=== PATIENT | female | born 1970 | race Caucasian/White ===

== ENCOUNTER 2016-10-08 08:30 | Inpatient (IN) | payer OTHER ==
[2016-10-15] MEDS ORDERED: Lactated Ringers 1,000 ML IV SCH (06:00)
[2016-10-15] MEDS ORDERED: ceFAZolin 2 GM in Sodium Chloride 0.9% 50 ML IV ONE (06:30)
[2016-10-15] MEDS ORDERED: Thrombin (Bovine) 5,000 Unit Kit ONE (06:51)
[2016-10-15] MEDS ORDERED: Bupivacaine 0.5%/EPINEPHrine 1:200,000 50 ML MDV ONE (06:52)
[2016-10-15] MEDS ORDERED: Povidone-Iodine 10% Soln 118.25 ML Bottle ONE (06:52)
[2016-10-15] MEDS ORDERED: Propofol 200 MG/20 ML SDV ONE ×2 (07:07→07:11)
[2016-10-15] MEDS ORDERED: Rocuronium 50 MG/5 ML Vial ONE (07:07)
[2016-10-15] MEDS ORDERED: Ondansetron 4 MG/2 ML SDV ONE (07:07)
[2016-10-15] MEDS ORDERED: Succinylcholine 200 MG/10 ML MDV ONE (07:07)
[2016-10-15] MEDS ORDERED: Neostigmine Methylsulfate 1 MG/ML 5 ML Syringe ONE (07:07)
[2016-10-15] MEDS ORDERED: Dexamethasone 4 MG/ML SDV ONE (07:07)
[2016-10-15] MEDS ORDERED: Glycopyrrolate 0.2 MG/ML 5 ML MDV ONE (07:07)
[2016-10-15] MEDS ORDERED: Ketamine 500 MG/5 ML MDV IV SCH (07:30)
[2016-10-15] MEDS ORDERED: Ondansetron 4 MG/2 ML SDV IVPUSH PRN (09:36)
[2016-10-15] MEDS ORDERED: Sodium Chloride 0.9% 10 ML Syringe FLUSH PRN (09:36)
[2016-10-15] MEDS ORDERED: Magnesium Hydroxide 400 MG/5 ML Susp 30 ML Cup PO PRN (09:36)
[2016-10-15] MEDS ORDERED: HYDROmorphone 1 MG/ML Syringe IVPUSH PRN (09:36)
[2016-10-15] MEDS ORDERED: Zolpidem 5 MG Tab PO PRN (09:36)
[2016-10-15] MEDS ORDERED: Sennosides 8.6 MG Tab PO PRN (09:36)
[2016-10-15] MEDS ORDERED: Aluminum Hydroxide/Magnesium Hydroxide/Simethicone Susp 30 ML Cup PO PRN (09:36)
[2016-10-15] MEDS ORDERED: Naloxone 0.4 MG/ML SDV IVPUSH PRN (09:36)
[2016-10-15] MEDS ORDERED: ceFAZolin 2 GM in Sodium Chloride 0.9% 50 ML IV SCH (09:45)
[2016-10-15] MEDS ORDERED: Labetalol 20 MG/4 ML Syringe IVPUSH ONE (10:47)
[2016-10-15] MEDS: Morphine 2 MG/ML Syringe IVPUSH PRN ×2 (11:39→18:44)
[2016-10-15] MEDS ORDERED: Gabapentin 300 MG Cap PO SCH (14:00)
[2016-10-15] MEDS: Hydrochlorothiazide 12.5 MG Cap PO SCH (14:02)
[2016-10-15] MEDS: Gabapentin 300 MG Cap PO SCH ×2 (14:03→21:00)
[2016-10-15] MEDS: Acetaminophen/oxyCODONE 325-5 MG Tab PO PRN ×2 (14:03→17:31)
[2016-10-15] MEDS: Lisinopril 10 MG Tab PO SCH (14:03)
[2016-10-15] MEDS: ceFAZolin 2 GM in Sodium Chloride 0.9% 50 ML IV SCH ×2 (14:04→21:01)
--- NOTE | 2016-10-15 14:53 | OR ---
DATE OF PROCEDURE: 10/15/2016 PREOPERATIVE DIAGNOSIS: Cervical stenosis, C4-5 and C5-6. POSTOPERATIVE DIAGNOSIS: Cervical stenosis, C4-5 and C5-6. PROCEDURES: 1. Anterior cervical diskectomy and fusion, C4-5 and C5-6. 2. Anterior segmental instrumentation, C4-5 and C5-6. 3. Insertion of interbody device, C4-5 and C5-6. 4. Use of operating microscope. 5. Use of Globus Signify allograft within the intervertebral space. DIRECTOR OF CUSTOMER ACQUISITION: Fabiola Correia NP ANESTHESIA: General endotracheal intubation. FLUID: Lactated Ringer solution. ESTIMATED BLOOD LOSS: 10 mL. COMPLICATIONS: None. SPECIMEN: None. DISCHARGE DISPOSITION: Stable to PACU. INDICATION FOR PROCEDURE: The patient was seen preoperatively in the clinic. She had failed nonoperative treatment. Preoperative imaging confirmed the above-mentioned diagnosis. Risks and benefits of the procedure were explained to the patient. Informed consent was obtained. DETAILS OF PROCEDURE: The patient was seen by myself and the anesthesia staff at the preoperative holding area, where the operative site was marked. She was brought to the operative suite by the Anesthesia staff where general anesthesia was administered. Neuromonitoring leads were placed. These were normal at baseline and normal throughout the case. The patient was placed onto a Dung table, which was flat. All extremities were found to be well padded. A shoulder roll was placed. We did confirm that we had good imaging prior to starting the procedure. The patient was then prepped and draped in a sterile manner. Time-out was called identifying the correct patient, correct procedure, the correct site, and antibiotics had been within appropriate period of time. The sterilely draped fluoroscopy unit was then used to identify the C5-C6 level. An oblique incision medial to the sternocleidomastoid was made and carried down to the platysma. The platysma was brought through using Bovie electrocautery. Cauterization during the case was controlled with Bovie electrocautery as well as bipolar electrocautery. I then used a Weitlaner retractor and then using Metzenbaum and pickups went to the medial border of the sternocleidomastoid fascia. I then bluntly dissected down to the prevertebral space, identified the C5-C6 level on fluoroscopy. We inserted 35 mm blades from our Shadow-Line retractor. I then used a deep 15 blade to incise the C5-6 anterior anulus and then removed the disk material using pituitaries, curettes, Kerrison, and a drill. I used an intervertebral valet attendant during the case for distraction as well to get down to the posterior longitudinal ligament. This was identified easily. I went through this by using #2 Kerrison to undermine the superior edge and the nerve hook while the dura was identified and a curette was placed at the left foramina as well as the nerve hook to make sure that there was no foraminal stenosis. I then placed a small amount of Floseal in the back of the disk space and then tamped out any remaining with a Ray-Inderjit. We then trailed up to a #6. I inserted a 6 mm, 12 x 14, 0-degree implant and then placed two 14 mm screws and confirmed good placement on fluoroscopy. I then performed the same procedure at the C4-5 level, except once we got down to the posterior lip. Before going through the posterior longitudinal ligament, I did bring in the operating microscope and under direct visualization used a Kerrison to take out the posterior lip of the superior vertebral body and then removed the posterior longitudinal ligament and any remaining disk material. I then again applied some Floseal and then trailed up to an 8 and inserted an 8 device with two 14 mm screws. We then using the operating microscope, used bipolar electrocautery unit to take care of any small bleeders and then irrigated with 2 L of Betadine-infused irrigation followed by drain placement of the lateral aspect of the wound, followed by three 2-0 Vicryl sutures through the platysma, followed by 3-0 Monocryl, followed by sterile dressing. The patient was then allowed to awaken from general anesthesia. The neuromonitoring leads were normal throughout the case. She was transferred to the hospital bed and taken to PACU in stable condition. Douglas Espinoza DO /[id number]
[2016-10-15] MEDS ORDERED: atorvaSTATin 10 MG Tab PO SCH ×2 (21:00)
[2016-10-16] MEDS: Acetaminophen/oxyCODONE 325-5 MG Tab PO PRN ×2 (01:38→09:48)
[2016-10-16] MEDS: Diazepam 5 MG Tab PO PRN ×2 (02:11→09:20)
[2016-10-16] MEDS: Morphine 2 MG/ML Syringe IVPUSH PRN ×2 (02:35→07:32)
[2016-10-16] MEDS: ceFAZolin 2 GM in Sodium Chloride 0.9% 50 ML IV SCH (05:19)
[2016-10-16] MEDS ORDERED: Pantoprazole 40 MG Tab.CR PO SCH (07:30)
[2016-10-16] MEDS ORDERED: Non-Formulary Medication 1 Each (Omeprazole [Omeprazole] 20 MG) PO SCH (09:00)
[2016-10-16] MEDS ORDERED: QUEtiapine 25 MG Tab PO SCH ×2 (09:00)
[2016-10-16] MEDS ORDERED: VIT K PO SCH (09:00)
[2016-10-16] MEDS ORDERED: [UNRECOGNIZED DRUG - OTHER] PO SCH (09:00)
[2016-10-16] MEDS ORDERED: [UNRECOGNIZED DRUG - OTHER] PO SCH (09:00)
[2016-10-16] MEDS ORDERED: LISINOPRIL PO SCH (09:00)
[2016-10-16] MEDS ORDERED: IRON FUM PO SCH (09:00)
[2016-10-16] MEDS ORDERED: HYDROCHLOROTHIAZIDE PO SCH (09:00)
[2016-10-16] MEDS ORDERED: Multivitamins with Iron/Calcium/Folic Acid/Minerals Tab PO SCH (09:00)
[2016-10-16] MEDS: Gabapentin 300 MG Cap PO SCH (09:14)
[2016-10-16] MEDS: Hydrochlorothiazide 12.5 MG Cap PO SCH (09:14)
[2016-10-16] MEDS: Lisinopril 10 MG Tab PO SCH (09:15)
[2016-10-16 09:24] VITALS: BP 128/71
--- NOTE | 2016-10-16 12:53 | PCM.DCSUM1 ---
Discharge Summary - Hospital Course Free Text/Narrative:: Jaida is doing very well today. She is status postop 1 day of a cervical fusion. She states that she is in minimal pain at this time. She has been emulating without any difficulties. Patient states at times she has little bit of swelling and trouble swallowing but very minimal at this time. - Discharge Data Discharge Date: 10/16/16 Discharge Disposition: Home, Self-Care 01 Condition: Good - Patient Summary/Data Consults: Consultations 10/15/16 09:36 OT Evaluation and Treatment [CONS] Routine Please Evaluate and Treat. OT Reason for Consult: Strengthening This query below is only for informational purposes and is not editable. PT Evaluation and Treatment [CONS] Routine Please Evaluate and Treat. PT Reason for Consult: Strengthening This query below is only for informational purposes and is not editable. - Patient Instructions Diet: Usual Diet as Tolerated Activity: Apply Ice, As Tolerated Driving: Do Not Drive Showering/Bathing: May Shower Wound/Incision Care: Keep Operative Site/Wound Site Clean and Dry, Change Dressing Daily - Discharge Plan Prescriptions/Med Rec: Acetaminophen/oxyCODONE [Percocet 325-5 MG] 1 tab PO Q6HR PRN #90 tablet PRN Reason: Pain Home Medications: Home Meds MV,Ca,Min/Iron Fum/FA/Vit K [Multi For Her Tablet] 1 tab PO DAILY 05/03/14 [ History] QUEtiapine [SEROquel] 25 mg PO DAILY 05/03/14 [History] Lisinopril/Hydrochlorothiazide [Zestoretic 10-12.5 mg Tablet] 1 each PO DAILY [History] atorvaSTATin [Lipitor] 10 mg PO BEDTIME 09/04/16 [History] Gabapentin [Neurontin] 300 mg PO TID 10/15/16 [History] Omeprazole 20 mg PO DAILY 10/15/16 [History] tiZANidine [Zanaflex] 4 mg PO Q8H 10/15/16 [History] Acetaminophen/oxyCODONE [Percocet 325-5 MG] 1 tab PO Q6HR PRN #90 tablet [Rx] Patient Handouts: Anterior Cervical Fusion, Care After Referrals: Fabiola Correia NP [Nurse Practitioner] - (3 week follow up) - Discharge Summary/Plan Comment DC Time >30 min.: Yes Discharge Summary/Plan Comment: At this time patient is doing very well she may be discharged home. We will pull the ANA LUISA drain out and see how she does with drainage. Patient will be sent home on Percocet. She'll follow up with me in 1 month. Patient is notify us if she has any issues in the meantime. I did instruct her to continue to drink lots of fluids to avoid any consultation. - Patient Data Vitals - Most Recent: Last Vital Signs Temp 36.4 C 10/16/16 07:00 Pulse 85 10/16/16 07:00 Resp 18 10/16/16 07:00 BP 128/71 10/16/16 09:15 Pulse Ox 93 L 10/16/16 07:38 Weight - Most Recent: 177 lb 8 oz I&O - Last 24 hours: Intake & Output 10/15/16 10/16/16 10/16/16 22:59 06:59 14:59 Intake Total 1681 Output Total 15 20 Balance 1666 -20 Lab Results - Last 24 hrs: Laboratory Results - last 24 hr 10/16/16 10/16/16 Range/Units 05:15 05:15 WBC 15.7 H (4.5-11.0) K/uL RBC 3.96 (3.30-5.50) M/uL Hgb 11.7 L (12.0-15.0) g/dL Hct 35.5 L (36.0-48.0) % MCV 90 (80-98) fL MCH 30 (27-31) pg MCHC 33 (32-36) % Plt Count 384 (150-400) K/uL Neut % (Auto) 75 H (36-66) % Lymph % (Auto) 14 L (24-44) % Cataño % (Auto) 10 H (2-6) % Eos % (Auto) 0 L (2-4) % Baso % (Auto) 0 (0-1) % Sodium 141 (140-148) mmol/L Potassium 4.0 (3.6-5.2) mmol/L Chloride 102 (100-108) mmol/L Carbon Dioxide 31 (21-32) mmol/L Anion Gap 8.4 (5.0-14.0) mmol/L BUN 10 (7-18) mg/dL Creatinine 0.8 (0.6-1.0) mg/dL Est Cr Clr Drug Dosing 83.13 mL/min Estimated GFR (MDRD) > 60 (>60) Glucose 115 H (74-106) mg/dL Calcium 8.5 (8.5-10.1) mg/dL Med Orders - Current: Current Medications Discontinued Medications Al Hydroxide/Mg Hydroxide (Mag-Al Plus) 30 ml PO Q4H PRN PRN Reason: Indigestion Atorvastatin Calcium (Lipitor) 10 mg PO BEDTIME CATHY Atorvastatin Calcium (Lipitor) 10 mg PO BEDTIME [facility] Last Admin: 10/15/16 21:00 Dose: 10 mg Bupivacaine HCl/Epinephrine Bitart (Marcaine 0.5%/Epinephrine 1:200,000) Confirm Administered Dose 50 ml .ROUTE .STK-MED ONE Stop: 10/15/16 06:53 Last Admin: 10/15/16 10:00 Dose: 5 ml Dexamethasone (Dexamethasone) Confirm Administered Dose 4 mg .ROUTE .STK-MED ONE Stop: 10/15/16 07:08 Diazepam (Valium.) 5 mg PO Q6H PRN PRN Reason: Spasms Last Admin: 10/16/16 09:20 Dose: 5 mg Diazepam (Valium) 2 mg IVPUSH ASDIRECTED PRN PRN Reason: AGIATATION Stop: 10/15/16 12:00 Last Admin: 10/15/16 10:18 Dose: 2 mg Fentanyl Citrate (Fentanyl) Confirm Administered Dose 500 mcg .ROUTE .STK-MED ONE Stop: 10/15/16 07:08 Fentanyl Citrate (Fentanyl) Confirm Administered Dose 500 mcg .ROUTE .STK-MED ONE Stop: 10/15/16 07:59 Gabapentin (Neurontin) 300 mg PO TID [facility] Gabapentin (Neurontin) 300 mg PO TID [facility] Last Admin: 10/16/16 09:14 Dose: 300 mg Glycopyrrolate (Robinul) Confirm Administered Dose 1 mg .ROUTE .STK-MED ONE Stop: 10/15/16 07:08 Hydrochlorothiazide (Hydrochlorothiazide) 12.5 mg PO DAILY [facility] Last Admin: 10/16/16 09:14 Dose: 12.5 mg Hydromorphone HCl (Dilaudid) 1 mg IVPUSH Q2H PRN PRN Reason: Pain Cefazolin Sodium 2 gm/ Sodium (Chloride) 50 mls @ 100 mls/hr IV ONETIME ONE Stop: 10/15/16 06:59 Last Admin: 10/15/16 07:23 Dose: 100 mls/hr Lactated Ringer's (Ringers, Lactated) 1,000 mls @ 0 mls/hr IV ASDIRECTED [facility] PRN Reason: KVO Last Admin: 10/15/16 06:12 Dose: 100 mls/hr Ketamine HCl 100 mg/ Sodium (Chloride) 100 mls @ 17 mls/hr IV ASDIRECTED [facility] Cefazolin Sodium 2 gm/ Sodium (Chloride) 50 mls @ 100 mls/hr IV Q8H [facility] Stop: 10/16/16 02:14 Last Admin: 10/15/16 17:18 Dose: Not Given Cefazolin Sodium 2 gm/ Sodium (Chloride) 50 mls @ 100 mls/hr IV Q8H [facility] Stop: 10/16/16 06:29 Last Admin: 10/16/16 05:19 Dose: 100 mls/hr Ketamine HCl (Ketalar) 28 mg IV ASDIRECTED [facility] Labetalol HCl (Normodyne) 5 mg IVPUSH ONETIME ONE PRN Reason: Protocol Stop: 10/15/16 10:48 Last Admin: 10/15/16 10:54 Dose: 5 mg Lisinopril (Prinivil) 10 mg PO DAILY [facility] Last Admin: 10/16/16 09:15 Dose: 10 mg Magnesium Hydroxide (Milk Of Magnesia) 30 ml PO BID PRN PRN Reason: Constipation Last Admin: 10/16/16 09:47 Dose: 30 ml Morphine Sulfate (Morphine) 2 mg IVPUSH Q2H PRN PRN Reason: Pain (severe 7-10) Last Admin: 10/16/16 07:32 Dose: 2 mg Multivitamins/Minerals (Thera M Plus) 1 tab PO DAILY [facility] Last Admin: 10/16/16 09:20 Dose: 1 tab Naloxone HCl (Narcan) 0.2 mg IVPUSH ASDIRECTED PRN PRN Reason: Oversedation Stop: 10/15/16 16:00 Neostigmine Methylsulfate (Neostigmine) Confirm Administered Dose 5 mg .ROUTE .STK-MED ONE Stop: 10/15/16 07:08 Non-Formulary Medication (Lisinopril/Hydrochlorothiazide [Zestoretic 10-12.5 Mg Tablet]) 1 each PO DAILY [facility] Non-Formulary Medication (Mv,Ca,Min/Iron Fum/Fa/Vit K [Multi For Her Tablet]) 1 tab PO DAILY [facility] Non-Formulary Medication (Omeprazole [Omeprazole]) 20 mg PO DAILY [facility] Ondansetron HCl (Zofran) Confirm Administered Dose 4 mg .ROUTE .STK-MED ONE Stop: 10/15/16 07:08 Ondansetron HCl (Zofran) 8 mg IVPUSH Q4H PRN PRN Reason: Nausea/Vomiting Oxycodone/Acetaminophen (Percocet 325-5 Mg) 2 tab PO Q4H PRN PRN Reason: Pain Last Admin: 10/16/16 09:48 Dose: 2 tab Pantoprazole Sodium (Protonix) 40 mg PO DAILY@0730 [facility] Last Admin: 10/16/16 07:47 Dose: 40 mg Povidone Iodine (Betadine 10% Soln) Confirm Administered Dose 1 ml .ROUTE .STK- MED ONE Stop: 10/15/16 06:53 Last Admin: 10/15/16 08:09 Dose: 40 ml Propofol (Diprivan 20 Ml) Confirm Administered Dose 200 mg .ROUTE .STK-MED ONE Stop: 10/15/16 07:08 Propofol (Diprivan 20 Ml) Confirm Administered Dose 600 mg .ROUTE .STK-MED ONE Stop: 10/15/16 07:12 Quetiapine Fumarate (Seroquel) 25 mg PO DAILY [facility] Quetiapine Fumarate (Seroquel) 25 mg PO DAILY [facility] Last Admin: 10/16/16 09:20 Dose: 25 mg Rocuronium Roscoe (Zemuron) Confirm Administered Dose 50 mg .ROUTE .STK-MED ONE Stop: 10/15/16 07:08 Senna (Senna) 8.6 mg PO BID PRN PRN Reason: Constipation Sodium Chloride (Saline Flush) 10 ml FLUSH ASDIRECTED PRN PRN Reason: Keep Vein Open Succinylcholine Chloride (Quelicin) Confirm Administered Dose 200 mg .ROUTE .STK -MED ONE Stop: 10/15/16 07:08 Thrombin (Thrombin-Jmi) Confirm Administered Dose 15,000 unit .ROUTE .STK-MED ONE Stop: 10/15/16 06:52 Last Admin: 10/15/16 08:09 Dose: 5,000 unit Zolpidem Tartrate (Ambien) 5 mg PO BEDTIME PRN PRN Reason: Sleep Last Admin: 10/15/16 21:00 Dose: 5 mg - Exam General: Reports: Alert, Moderate Distress Neck: Reports: Supple, Trachea Midline, No JVD Extremities: Normal Inspection, Normal Range of Motion, Non-Tender, No Pedal Edema, Normal Capillary Refill Skin: Reports: Warm, Dry, Intact Wound/Incisions: Reports: Healing Well, Dressing Dry and Intact, No Drainage Neurological: Reports: No New Focal Deficit, Normal Gait, Strength Equal Bilateral, Reflexes Equal Bilateral Psy/Mental Status: Reports: Alert *Q Meaningful Use (DIS) - VTE *Q VTE Criteria *Q: - Stroke *Q Stroke Criteria *Q: - AMI *Q AMI Criteria *Q:
== END 2016-10-16 11:38 | disposition home or self-care (01) | DRG 473 ==
LOC: JP.MS 10-15 05:20 → JP.SDS 10-15 05:20 → EDSTATUS 10-15 07:30 → JP.MS 10-15 11:15
PROVIDERS: ADMIT Orthopaedic Surgery; ATTEND Orthopaedic Surgery
PROC: 0RB30ZZ Excision of Cervical Vertebral Disc, Open Approach (ICD-10-PCS; principal; 2016-10-15)
PROC: 0RG10A0 Fusion of Cervical Vertebral Joint with Interbody Fusion Device, Anterior Approach, Anterior Column, Open Approach (ICD-10-PCS; principal; 2016-10-15)
DX: M48.02 Spinal stenosis, cervical region (principal); M54.12 Radiculopathy, cervical region
CPT/HCPCS: 36415; 76001; 80048; 85025; 86850; 86900; 86901; 94762; 97161-GP; 97165-GO; 97530-GP; 97535-GP; A9270-GY; C1713; J0330; J0690; J1100; J2270; J2405; J2704; J2710; J3010; J3360; J7030; J7050; J7120

== ENCOUNTER 2016-10-28 08:29 | Inpatient (IN) | payer OTHER ==
[2016-10-28] MEDS ORDERED: HYDROmorphone 0.5 MG/0.5 ML Syringe IVPUSH ONE (09:03)
[2016-10-28] MEDS ORDERED: Ondansetron 4 MG/2 ML SDV IVPUSH ONE (09:03)
[2016-10-28] MEDS ORDERED: Morphine 2 MG/ML Syringe IVPUSH ONE ×3 (09:10→11:40)
--- NOTE | 2016-10-28 09:12 | EDM.PDOC ---
ED HPI GENERAL MEDICAL PROBLEM - General Chief Complaint: Abdominal Pain Stated Complaint: SEVERE ABD PAIN Time Seen by Provider: 10/28/16 09:11 Source of Information: Reports: Patient History Limitations: Reports: No Limitations - History of Present Illness INITIAL COMMENTS - FREE TEXT/NARRATIVE: pt arrived with pain in mid abdoman --suprapupicly. She had passed 2 bloody stools earlier. She was very uncomfortable on arrival. Onset: Other ( bloody stools started last nite. ) Duration: Hour(s):, Getting Worse Location: Reports: Abdomen Associated Symptoms: Reports: Loss of Appetite, Other ( bloody stools. ) Abdomen Pain Score (Numeric/FACES): 10 - Related Data Allergies Allergy/AdvReac Type Severity Reaction Status Date / Time ciprofloxacin Allergy Intermediate unknown Verified 10/28/16 08:41 hydromorphone [Hydromorphone] Allergy Intermediate Rash Verified 10/28/16 08:41 ketorolac Allergy abd pain Verified 10/28/16 08:41 Home Meds: Home Meds MV,Ca,Min/Iron Fum/FA/Vit K [Multi For Her Tablet] 1 tab PO DAILY 05/03/14 [ History] QUEtiapine [SEROquel] 25 mg PO DAILY 05/03/14 [History] Lisinopril/Hydrochlorothiazide [Zestoretic 10-12.5 mg Tablet] 1 each PO DAILY [History] atorvaSTATin [Lipitor] 10 mg PO BEDTIME 09/04/16 [History] Omeprazole 20 mg PO DAILY 10/15/16 [History] tiZANidine [Zanaflex] 4 mg PO Q8H 10/15/16 [History] Past Medical History Cardiovascular History: Reports: Hypertension 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 SANDER History: Reports: 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, Musculoskeletal History: Reports: Other (See Below) Other Musculoskeletal History: L arm pain - Infectious Disease History Infectious Disease History: Reports: Chicken Pox, Shingles - Past Surgical History HEENT Surgical History: Reports: Oral Surgery Other HEENT Surgeries/Procedures: wisdom teeth GI Surgical History: Reports: Appendectomy Female Surgical History: Reports: Hysterectomy Neurological Surgical History: Reports: C-Spine Social & Family History - Tobacco Use Smoking Status *Q: Former Smoker Years of Tobacco use: 36 Used Tobacco, but Quit: Yes Month Tobacco Last Used: 2014 Second Hand Smoke Exposure: No - Caffeine Use Caffeine Use: Reports: Coffee, Soda - Alcohol Use Days Per Week of Alcohol Use: 0 - Recreational Drug Use Recreational Drug Use: No ED ROS GENERAL - Review of Systems Review Of Systems: See Below Constitutional: Reports: Decreased Appetite HEENT: Reports: No Symptoms Respiratory: Reports: No Symptoms Cardiovascular: Reports: No Symptoms Endocrine: Reports: No Symptoms GI/Abdominal: Reports: Abdominal Pain, Bloody Stool, Other (pt passed 2 bloody stools. ) : Reports: No Symptoms Musculoskeletal: Reports: No Symptoms Neurological: Reports: No Symptoms Psychiatric: Reports: Anxiety, Other (pt is very uncomfortable. ) ED EXAM, GI/ABD - Physical Exam Exam: See Below Text/Narrative:: pt arrived with severe pain in the midsupra pupic area. She has a history of 2 bloody stools. Exam Limited By: No Limitations General Appearance: Alert, Moderate Distress Ears: Normal TMs Nose: Normal Inspection Throat/Mouth: Normal Inspection Head: Atraumatic Neck: Normal Inspection Respiratory/Chest: No Respiratory Distress Cardiovascular: Regular Rate, Rhythm GI/Abdominal Exam: Other (pt has considerable tenderness in the mid suprapubic area. She is guarded and is requiring a fair amount of pain meds to control the pain. ) (Female) Exam: Normal External Exam Rectal (Female) Exam: Deferred Back Exam: Normal Inspection Extremities: Normal Inspection Neurological: Alert, Oriented, Normal Cognition Course - Vital Signs Last Recorded V/S: Last Vital Signs Temp 36.7 C 10/29/16 07:46 Pulse 89 10/29/16 07:46 Resp 16 10/29/16 07:46 BP 101/70 10/29/16 07:46 Pulse Ox 97 10/29/16 07:46 - Orders/Labs/Meds Orders: Active Orders 24 hr Category Date Time Status Ampicillin/Sulbactam Na [Unasyn] 1.5 gm Med 10/28/16 18:00 Active Sodium Chloride 0.9% [Normal Saline] 50 ml IV Q6H Medication Orders Acetaminophen (Tylenol) 650 mg PO Q4H PRN PRN Reason: Pain (Mild 1-3)/fever Ampicillin Sodium/Sulbactam (Sodium 1.5 gm/ Sodium Chloride) 50 mls @ 100 mls/ hr IV Q6H CATHY Last Admin: 10/29/16 05:26 Dose: 100 mls/hr Admin: 10/28/16 23:37 Dose: 100 mls/hr Admin: 10/28/16 18:03 Dose: 100 mls/hr Sodium Chloride (Normal Saline) 1,000 mls @ 125 mls/hr IV ASDIRECTED CATHY Last Admin: 10/29/16 03:08 Dose: 125 mls/hr Infusion: 10/29/16 02:09 Dose: 125 mls/hr Admin: 10/28/16 18:09 Dose: 125 mls/hr Morphine Sulfate (Morphine Evs Manager 150 Mg In 30 Ml) 0 mg IV ASDIRECTED PRN; Protocol PRN Reason: Pain Last Admin: 10/28/16 13:52 Dose: 2 mg Naloxone HCl (Narcan) 0.4 mg IVPUSH Q2M PRN PRN Reason: Respiratory Distress Ondansetron HCl (Zofran) 4 mg IV Q4H PRN PRN Reason: Nausea/Vomiting Last Admin: 10/29/16 05:26 Dose: 4 mg Pantoprazole Sodium (Protonix Iv) 40 mg IVPUSH Q24H CATHY Last Admin: 10/28/16 14:23 Dose: 40 mg Quetiapine Fumarate (Seroquel) 25 mg PO BEDTIME CATHY Last Admin: 10/28/16 20:45 Dose: 25 mg Sodium Chloride (Saline Flush) 10 ml FLUSH ASDIRECTED PRN PRN Reason: Keep Vein Open Labs: Laboratory Tests 10/28/16 10/28/16 10/28/16 Range/Units 09:10 09:10 09:12 WBC 19.2 H (4.5-11.0) K/uL RBC 4.18 (3.30-5.50) M/uL Hgb 12.5 (12.0-15.0) g/dL Hct 35.6 L (36.0-48.0) % MCV 85 (80-98) fL MCH 30 (27-31) pg MCHC 35 (32-36) % Plt Count 499 H (150-400) K/uL Neut % (Auto) 90 H (36-66) % Lymph % (Auto) 5 L (24-44) % [place] % (Auto) 5 (2-6) % Eos % (Auto) 0 L (2-4) % Baso % (Auto) 0 (0-1) % Sodium (140-148) mmol/L Potassium (3.6-5.2) mmol/L Chloride (100-108) mmol/L Carbon Dioxide (21-32) mmol/L Anion Gap (5.0-14.0) mmol/L BUN (7-18) mg/dL Creatinine (0.6-1.0) mg/dL Est Cr Clr Drug Dosing mL/min Estimated GFR (MDRD) (>60) Glucose (74-106) mg/dL Lactic Acid 1.7 (0.4-2.0) mmol/L Calcium (8.5-10.1) mg/dL Total Bilirubin (0.2-1.0) mg/dL AST (15-37) U/L ALT (12-78) U/L Alkaline Phosphatase (46-116) U/L Total Protein (6.4-8.2) g/dL Albumin (3.4-5.0) g/dL Globulin (2.3-3.5) g/dL Albumin/Globulin Ratio (1.2-2.2) Lipase 170 (73-393) U/L Urine Color Urine Appearance Urine pH (4.5-8.0) Ur Specific [place] (1.008-1.030) Urine Protein (NEGATIVE) mg/dL Urine Glucose (UA) (NEGATIVE) mg/dL Urine Ketones (NEGATIVE) mg/dL Urine Occult Blood (NEGATIVE) Urine Nitrite (NEGATIVE) Urine Bilirubin (NEGATIVE) Urine Urobilinogen (NORMAL) mg/dL Ur Leukocyte Esterase (NEGATIVE) Urine RBC (0-5) Urine WBC (0-5) Ur Epithelial Cells Amorphous Sediment Urine Bacteria Urine Mucus 10/28/16 10/28/16 Range/Units 09:12 10:40 WBC (4.5-11.0) K/uL RBC (3.30-5.50) M/uL Hgb (12.0-15.0) g/dL Hct (36.0-48.0) % MCV (80-98) fL MCH (27-31) pg MCHC (32-36) % Plt Count (150-400) K/uL Neut % (Auto) (36-66) % Lymph % (Auto) (24-44) % [place] % (Auto) (2-6) % Eos % (Auto) (2-4) % Baso % (Auto) (0-1) % Sodium 132 L (140-148) mmol/L Potassium 3.8 (3.6-5.2) mmol/L Chloride 94 L (100-108) mmol/L Carbon Dioxide 27 (21-32) mmol/L Anion Gap 14.8 H (5.0-14.0) mmol/L BUN 12 (7-18) mg/dL Creatinine 0.7 (0.6-1.0) mg/dL Est Cr Clr Drug Dosing 95.01 mL/min Estimated GFR (MDRD) > 60 (>60) Glucose 138 H (74-106) mg/dL Lactic Acid (0.4-2.0) mmol/L Calcium 9.3 (8.5-10.1) mg/dL Total Bilirubin 0.4 (0.2-1.0) mg/dL AST 29 (15-37) U/L ALT 74 D (12-78) U/L Alkaline Phosphatase 343 H D (46-116) U/L Total Protein 7.9 (6.4-8.2) g/dL Albumin 3.8 (3.4-5.0) g/dL Globulin 4.1 H (2.3-3.5) g/dL Albumin/Globulin Ratio 0.9 L (1.2-2.2) Lipase (73-393) U/L Urine Color Yellow Urine Appearance Clear Urine pH 8.0 (4.5-8.0) Ur Specific [place] 1.010 (1.008-1.030) Urine Protein Negative (NEGATIVE) mg/dL Urine Glucose (UA) Normal (NEGATIVE) mg/dL Urine Ketones Negative (NEGATIVE) mg/dL Urine Occult Blood Moderate (NEGATIVE) Urine Nitrite Negative (NEGATIVE) Urine Bilirubin Negative (NEGATIVE) Urine Urobilinogen Normal (NORMAL) mg/dL Ur Leukocyte Esterase Negative (NEGATIVE) Urine RBC 0-5 (0-5) Urine WBC 0-5 (0-5) Ur Epithelial Cells Rare Amorphous Sediment Not seen Urine Bacteria Not seen Urine Mucus Rare Meds: Medications Generic Name Dose Route Start Last Admin Trade Name Freq PRN Reason Stop Dose Admin Acetaminophen 650 mg 10/28/16 13:30 Tylenol PO Q4H PRN Pain (Mild 1-3)/fever Ampicillin Sodium/Sulbactam 50 mls @ 100 mls/hr 10/28/16 18:00 10/29/16 05:26 Sodium 1.5 gm/ Sodium Chloride IV 100 mls/hr Q6H CAHTY Administration Sodium Chloride 1,000 mls @ 125 mls/hr 10/28/16 17:45 10/29/16 03:08 Normal Saline IV 125 mls/hr ASDIRECTED CATHY Administration Morphine Sulfate 0 mg 10/28/16 13:30 10/28/16 13:52 Morphine Evs Manager 150 Mg In 30 Ml IV 2 mg ASDIRECTED PRN Administration Pain Protocol Naloxone HCl 0.4 mg 10/28/16 13:30 Narcan IVPUSH Q2M PRN Respiratory Distress Ondansetron HCl 4 mg 10/28/16 13:30 10/29/16 05:26 Zofran IV 4 mg Q4H PRN Administration Nausea/Vomiting Pantoprazole Sodium 40 mg 10/28/16 14:00 10/28/16 14:23 Protonix Iv IVPUSH 40 mg Q24H CATHY Administration Quetiapine Fumarate 25 mg 10/28/16 21:00 10/28/16 20:45 Seroquel PO 25 mg BEDTIME CATHY Administration Sodium Chloride 10 ml 10/28/16 13:30 Saline Flush FLUSH ASDIRECTED PRN Keep Vein Open Discontinued Medications Generic Name Dose Route Start Last Admin Trade Name Freq PRN Reason Stop Dose Admin Acetaminophen 1,000 mg 10/29/16 05:51 10/29/16 06:14 Tylenol Extra Strength PO 10/29/16 05:52 1,000 mg ONETIME ONE Administration Hydromorphone HCl 0.5 mg 10/28/16 09:03 10/28/16 09:15 Dilaudid IVPUSH 10/28/16 09:04 Not Given ONETIME ONE Sodium Chloride 1,000 mls @ 999 mls/hr 10/28/16 09:15 10/28/16 09:11 Normal Saline IV 999 mls/hr ASDIRECTED CATHY Administration Sodium Chloride 100 mls @ 3 mls/sec 10/28/16 10:00 10/28/16 10:13 Normal Saline IV 3 mls/sec ASDIRECTED CATHY Administration Sodium Chloride 1,000 mls @ 500 mls/hr 10/28/16 10:30 10/28/16 10:31 Normal Saline IV 500 mls/hr ASDIRECTED CATHY Administration Ampicillin Sodium/Sulbactam 50 mls @ 100 mls/hr 10/28/16 12:00 10/28/16 11:39 Sodium 1.5 gm/ Sodium Chloride IV 10/28/16 12:29 100 mls/hr ONETIME ONE Administration Sodium Chloride 500 mls @ 250 mls/hr 10/28/16 13:30 10/28/16 17:45 Normal Saline IV 10/28/16 19:31 250 mls/hr .BOLUS CATHY Administration Iopamidol 100 ml 10/28/16 10:00 10/28/16 10:12 Isovue-300 (61%) IV 100 ml . DIRECTED CATHY Administration Morphine Sulfate 2 mg 10/28/16 09:10 10/28/16 09:20 Morphine IVPUSH 10/28/16 09:11 2 mg ONETIME ONE Administration Morphine Sulfate 2 mg 10/28/16 10:26 10/28/16 10:31 Morphine IVPUSH 10/28/16 10:27 2 mg ONETIME ONE Administration Morphine Sulfate 2 mg 10/28/16 11:40 10/28/16 11:41 Morphine IVPUSH 10/28/16 11:41 2 mg ONETIME ONE Administration Ondansetron HCl 4 mg 10/28/16 09:03 10/28/16 09:13 Zofran IVPUSH 10/28/16 09:04 4 mg ONETIME ONE Administration - Re-Assessments/Exams Free Text/Narrative Re-Assessment/Exam: 10/29/16 07:53 pt had a cat scan which showed a mass like area. in the large bowel either inflamitory or infectious. Departure - Departure Time of Disposition: 07:50 Disposition: Admitted As Inpatient 66 Clinical Impression: Inflammation of large intestine, Rectal bleeding - Discharge Information
[2016-10-28] MEDS ORDERED: Sodium Chloride 0.9% 1,000 ML IV SCH ×2 (09:15→10:30)
[2016-10-28] MEDS ORDERED: Sodium Chloride 0.9% 100 ML IV SCH (10:00)
[2016-10-28] MEDS ORDERED: Iopamidol 612 MG/ML 100 ML Bottle IV SCH (10:00)
--- NOTE | 2016-10-28 10:30 | CT ---
Abdomen Pelvis w Cont Total DLP 735 mGycm. INDICATION: mid lower abdominal pain COMPARISON: None. FINDINGS: Circumferential wall thickening, mucosal hyperenhancement, and mild surrounding inflammator y change involving the descending and proximal sigmoid colon, most marked at the descending colon/sig moid colon junction. No focal fluid collection or abscess. Appendectomy and hysterectomy. Small fat-c ontaining periumbilical hernia. Small splenule. Minimal atherosclerotic calcification. Exam otherwise negative. IMPRESSION: Descending and sigmoid colitis. No focal fluid collection or abscess. Differential consid erations include infectious, inflammatory, and less likely ischemic, as the mesenteric arteries appea r widely patent.
[2016-10-28] MEDS ORDERED: Ampicillin/Sulbactam Na 1.5 GM in Sodium Chloride 0.9% 50 ML IV ONE (12:00)
[2016-10-28] MEDS ORDERED: Morphine PF 150 MG/30 ML PCA Syringe IV PRN (13:30)
[2016-10-28] MEDS ORDERED: Naloxone 0.4 MG/ML SDV IVPUSH PRN (13:30)
[2016-10-28] MEDS ORDERED: Acetaminophen 325 MG Tab PO PRN (13:30)
[2016-10-28] MEDS ORDERED: Sodium Chloride 0.9% 10 ML Syringe FLUSH PRN (13:30)
[2016-10-28] MEDS ORDERED: Ondansetron 4 MG/2 ML SDV IV PRN (13:30)
[2016-10-28] MEDS: Sodium Chloride 0.9% 500 ML IV SCH ×2 (13:45→17:45)
[2016-10-28] MEDS: Pantoprazole 40 MG Vial IVPUSH SCH (14:23)
--- NOTE | 2016-10-28 14:57 | PCM.HP ---
H&P History of Present Illness - General Date of Service: 10/28/16 Admit Problem/Dx: Admission Diagnosis/Problem Admission Diagnosis/Problem Colitis Source of Information: Patient, Provider, RN Notes Reviewed History Limitations: Reports: No Limitations - History of Present Illness Initial Comments - Free Text/Narative: Ms. Lofton is a 45-year-old woman who was admitted through the emergency department because of severe left lower quadrant abdominal pain associated with bloody diarrhea. She'll not felt well over the past 2 days with very poor appetite and feeling chilled. Early this morning developed bloody stools and had several bloody bowel movements during the night. She came into the emergency department this morning for evaluation. Blood pressure was stable but white blood cell count was elevated and her heart rate was borderline elevated. CT scan of the abdomen and pelvis shows evidence of inflammation in the descending and sigmoid colon. She's had no further evidence of lower GI bleeding since she's been in the emergency department. Lactic acid level is within normal range. Abdomen Pain Score (Numeric/FACES): 9 - Related Data Allergies/Adverse Reactions: Allergies Allergy/AdvReac Type Severity Reaction Status Date / Time ciprofloxacin Allergy Intermediate unknown Verified 10/28/16 08:41 hydromorphone [Hydromorphone] Allergy Intermediate Rash Verified 10/28/16 08:41 ketorolac Allergy abd pain Verified 10/28/16 08:41 Home Medications: Home Meds MV,Ca,Min/Iron Fum/FA/Vit K [Multi For Her Tablet] 1 tab PO DAILY 05/03/14 [ History] QUEtiapine [SEROquel] 25 mg PO DAILY 05/03/14 [History] Lisinopril/Hydrochlorothiazide [Zestoretic 10-12.5 mg Tablet] 1 each PO DAILY [History] atorvaSTATin [Lipitor] 10 mg PO BEDTIME 09/04/16 [History] Omeprazole 20 mg PO DAILY 10/15/16 [History] tiZANidine [Zanaflex] 4 mg PO Q8H 10/15/16 [History] Past Medical History Cardiovascular History: Reports: Hypertension Gastrointestinal History: Reports: Other (See Below) Other Gastrointestinal History: colitis 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, Musculoskeletal History: Reports: Other (See Below) Other Musculoskeletal History: L arm pain - Infectious Disease History Infectious Disease History: Reports: Chicken Pox, Shingles - Past Surgical History HEENT Surgical History: Reports: Oral Surgery Other HEENT Surgeries/Procedures: wisdom teeth GI Surgical History: Reports: Appendectomy Female Surgical History: Reports: Hysterectomy Neurological Surgical History: Reports: C-Spine Social & Family History - Tobacco Use Smoking Status *Q: Former Smoker Years of Tobacco use: 36 Used Tobacco, but Quit: Yes Month Tobacco Last Used: 2014 Second Hand Smoke Exposure: No - Caffeine Use Caffeine Use: Reports: Coffee, Soda - Alcohol Use Days Per Week of Alcohol Use: 0 - Recreational Drug Use Recreational Drug Use: No H&P Review of Systems - Review of Systems: Review Of Systems: See Below General: Reports: Chills, Weakness, Decreased Appetite. Denies: Fever HEENT: Reports: No Symptoms Pulmonary: Reports: No Symptoms Cardiovascular: Reports: No Symptoms Gastrointestinal: Reports: Abdominal Pain, Bloody Stool, Diarrhea, Decreased Appetite, Nausea, Vomiting Genitourinary: Reports: No Symptoms Musculoskeletal: Reports: No Symptoms Skin: Reports: No Symptoms Psychiatric: Reports: No Symptoms Neurological: Reports: No Symptoms Hematologic/Lymphatic: Reports: No Symptoms Immunologic: Reports: No Symptoms Exam - Exam Exam: See Below - Vital Signs Vital Signs: Last Vital Signs Temp 99.0 F 10/28/16 13:37 Pulse 94 10/28/16 13:37 Resp 23 H 10/28/16 13:37 BP 130/88 10/28/16 13:37 Pulse Ox 97 10/28/16 14:00 Weight: 165 lb - Exam Quality Assessment: DVT Prophylaxis General: Alert, Oriented, Cooperative, Moderate Distress HEENT: Conjunctiva Clear, Hearing Intact, Normal Nasal Septum, Posterior Pharynx Clear, Pupils Equal Neck: Supple, Trachea Midline, +2 Carotid Pulse wo Bruit Lungs: Clear to Auscultation, Normal Respiratory Effort Cardiovascular: Regular Rhythm, Normal S1, Normal S2, Tachycardia. No: Systolic Murmur, Diastolic Murmur GI/Abdominal Exam: Normal Bowel Sounds, Soft, No Organomegaly, Tender. No: Distended, Guarding, Rigid, Rebound Back Exam: Normal Inspection, Full Range of Motion Extremities: Normal Inspection, Non-Tender, No Pedal Edema Skin: Warm, Dry, Intact Neurological: Cranial Nerves Intact, Strength Equal Bilateral, Normal Speech, Normal Tone, Sensation Intact. No: Focal Deficit Neuro Extensive - Mental Status: Alert, Oriented x3, Normal Mood/Affect, Normal Cognition, Memory Intact - Patient Data Result Diagrams: 10/28/16 09:12 10/28/16 09:12 *Q Meaningful Use (ADM) - VTE *Q VTE Criteria *Q: VTE Pharmacological Contraindications *Q: Active Hemorrhage - VTE Risk Assess *Q Each Risk Factor Represents 1 Point: Age 41 - 59 years Total Score 1 Point Risk Factors: 1 Each Risk Factor Represents 2 Points: None Total Score 2 Point Risk Factors: 0 Each Risk Factor Represents 3 Points: None Total Score 3 Point Risk Factors: 0 Each Risk Factor Represents 5 Points: None Total Score 5 Point Risk Factors: 0 Venous Thromboembolism Risk Factor Score *Q: 1 - Stroke *Q Stroke Criteria *Q: - AMI *Q AMI Criteria *Q: Problem List Initiated/Reviewed/Updated: Yes Orders Last 24hrs: Active Orders 24 hr Category Date Time Status Patient Status [ADT] Routine ADT 10/28/16 13:30 Active Communication Order [RC] STAT Care 10/28/16 13:30 Active Intake and Output [RC] QSHIFT Care 10/28/16 13:30 Active Notify Provider Consults [RC] ASDIRECTED Care 10/28/16 13:30 Active Notify Provider Vital Signs [RC] ASDIRECTED Care 10/28/16 13:30 Active Notify Provider [RC] PRN Care 10/28/16 13:30 Active Oxygen Therapy [RC] PRN Care 10/28/16 13:30 Active CPS TEAM LEAD Record [RC] PER UNIT ROUTINE Care 10/28/16 13:30 Active Peripheral IV Care [RC] . DIRECTED Care 10/28/16 13:30 Active Pulse Oximetry [RC] CONTINUOUS Care 10/28/16 13:30 Active Up ad Ryann [RC] ASDIRECTED Care 10/28/16 13:30 Active VTE/DVT Education [RC] Per Unit Routine Care 10/28/16 13:30 Active Vital Signs [RC] Q4H Care 10/28/16 13:30 Active Consult to Physician [CONS] Urgent Cons 10/28/16 13:30 Ordered Nothing per Oral Now Diet [DIET] Diet 10/28/16 Breakfast Active BASIC METABOLIC PANEL,BMP [CHEM] AM Lab 10/29/16 05:11 Ordered CBC WITH AUTO DIFF [HEME] AM Lab 10/29/16 05:11 Ordered CLOSTRIDIUM DIFFICILE BY PCR [RM] Stat Lab 10/28/16 13:30 Uncollected CULTURE STOOL + SHIGATOX [RM] Stat Lab 10/28/16 13:30 Uncollected HGB [HEMOGLOBIN] [HEME] Stat Lab 10/28/16 15:00 Ordered HGB [HEMOGLOBIN] [HEME] Stat Lab 10/28/16 21:00 Ordered WBC, STOOL [OP] Stat Lab 10/28/16 13:30 Uncollected Acetaminophen [Tylenol] Med 10/28/16 13:30 Active 650 mg PO Q4H PRN Morphine PF [Morphine CPS TEAM LEAD 150 MG in 30 ML] Med 10/28/16 13:30 Active See Protocol IV ASDIRECTED PRN Naloxone [Narcan] Med 10/28/16 13:30 Active 0.4 mg IVPUSH Q2M PRN Ondansetron [Zofran] Med 10/28/16 13:30 Active 4 mg IV Q4H PRN Pantoprazole [ProTONIX IV] Med 10/28/16 14:00 Active 40 mg IVPUSH Q24H Sodium Chloride 0.9% [Normal Saline] 1,000 ml Med 10/28/16 17:45 Active IV ASDIRECTED Sodium Chloride 0.9% [Normal Saline] 500 ml Med 10/28/16 13:30 Active IV .BOLUS Sodium Chloride 0.9% [Saline Flush] Med 10/28/16 13:30 Active 10 ml FLUSH ASDIRECTED PRN Medication Discontinuation Instructions [OM.PC] Stat Oth 10/28/16 13:30 Ordered Peripheral IV Insertion Adult [OM.PC] Routine Oth 10/28/16 13:30 Ordered Sequential Compression Device [OM.PC] Per Unit Routine Oth 10/28/16 13:30 Ordered VTE Pharmacological Contraindications [AST] Per Unit Ot 10/28/16 13:30 Ordered Routine Resuscitation Status Routine Resus Stat 10/28/16 11:31 Ordered Medication Orders Acetaminophen (Tylenol) 650 mg PO Q4H PRN PRN Reason: Pain (Mild 1-3)/fever Ampicillin Sodium/Sulbactam (Sodium 1.5 gm/ Sodium Chloride) 50 mls @ 100 mls/ hr IV Q6H CATHY Sodium Chloride (Normal Saline) 500 mls @ 250 mls/hr IV .BOLUS CATHY Stop: 10/28/16 19:31 Sodium Chloride (Normal Saline) 1,000 mls @ 125 mls/hr IV ASDIRECTED [facility] Morphine Sulfate (Morphine Keg Header 150 Mg In 30 Ml) 0 mg IV ASDIRECTED PRN; Protocol PRN Reason: Pain Last Admin: 10/28/16 13:52 Dose: 2 mg Naloxone HCl (Narcan) 0.4 mg IVPUSH Q2M PRN PRN Reason: Respiratory Distress Ondansetron HCl (Zofran) 4 mg IV Q4H PRN PRN Reason: Nausea/Vomiting Pantoprazole Sodium (Protonix Iv) 40 mg IVPUSH Q24H CATHY Last Admin: 10/28/16 14:23 Dose: 40 mg Quetiapine Fumarate (Seroquel) 25 mg PO BEDTIME CATHY Sodium Chloride (Saline Flush) 10 ml FLUSH ASDIRECTED PRN PRN Reason: Keep Vein Open Assessment/Plan Comment:: ASSESSMENT AND PLAN COLITIS ASSOCIATED WITH BLOODY DIARRHEA-specific etiology not entirely apparent. She does have a known history of previous diverticulitis, ischemic colitis possible but current location would be somewhat atypical, most likely cause would seem to be infectious given relatively rapid onset of symptoms. -Nothing by mouth -IV fluids for hydration and management of early sepsis -IV antibiotic therapy with Unasyn and Azactam. -Consult Dr. Espinoza for surgical follow-up and colonoscopy -Stool studies for culture and C. difficile pending HYPERTENSION -Hold oral antihypertensive therapy -Monitor blood pressures and resume medication when stable MAINTENANCE ISSUES -DVT prophylaxis; SCUDs -GI prophylaxis; Protonix 40 mg IV every 24 hours -Singh catheter; not indicated -Nutrition; nothing by mouth -Nicotine dependence; not required CODE STATUS-FULL CODE ADMISSION STATUS-patient will be admitted to inpatient status, expect at least a 2 night hospital stay for evaluation and management of problems as outlined above. At the time of this admission I do not reasonably expected evaluation and management of this problem will require more than a 96 hour hospital stay. DISPOSITION-anticipate discharge to home after the hospital stay. PRIMARY CARE PROVIDER-
[2016-10-28] MEDS: Ampicillin/Sulbactam Na 1.5 GM in Sodium Chloride 0.9% 50 ML IV SCH ×2 (18:03→23:37)
[2016-10-28] MEDS: Sodium Chloride 0.9% 1,000 ML IV SCH (18:09)
[2016-10-28] MEDS: QUEtiapine 25 MG Tab PO SCH (20:45)
[2016-10-29] MEDS: Sodium Chloride 0.9% 1,000 ML IV SCH ×2 (03:08→16:51)
[2016-10-29] MEDS: Ampicillin/Sulbactam Na 1.5 GM in Sodium Chloride 0.9% 50 ML IV SCH ×3 (05:26→17:49)
[2016-10-29] MEDS ORDERED: Acetaminophen 500 MG Tab PO ONE (05:51)
[2016-10-29] MEDS ORDERED: Propofol 200 MG/20 ML SDV ONE ×2 (08:30→09:57)
--- NOTE | 2016-10-29 09:36 | PCM.PN ---
- General Info Date of Service: 10/29/16 Functional Status: Reports: Pain Controlled - Review of Systems General: Reports: Weakness. Denies: Fever, Chills Pulmonary: Reports: No Symptoms Cardiovascular: Reports: No Symptoms Gastrointestinal: Reports: Abdominal Pain, Diarrhea, Hematochezia. Denies: Nausea, Vomiting Genitourinary: Reports: No Symptoms Systems Review Comment:: Ms. Lofton continues to experience left lower quadrant abdominal pain although it significantly improved from admission, continues to have bloody diarrhea. Hemoglobin has remained stable after allowing for dilutional changes with IV fluids. Vital signs have been good and she has remained afebrile. She will undergo colonoscopy this morning with Dr. Espinoza. - Patient Data Vitals - Most Recent: Last Vital Signs Temp 98.1 F 10/29/16 07:46 Pulse 89 10/29/16 07:46 Resp 16 10/29/16 07:46 BP 101/70 10/29/16 07:46 Pulse Ox 97 10/29/16 07:46 Weight - Most Recent: 165 lb 0.009 oz I&O - Last 24 Hours: Intake & Output 10/28/16 10/29/16 10/29/16 22:59 06:59 14:59 Intake Total 2963 1423 Output Total 700 1325 Balance 2263 98 Lab Results Last 24 Hours: Laboratory Results - last 24 hr 10/28/16 10/28/16 10/29/16 Range/Units 15:13 21:00 05:49 WBC 12.5 H (4.5-11.0) K/uL RBC 3.46 (3.30-5.50) M/uL Hgb 11.4 L 10.6 L 10.4 L (12.0-15.0) g/dL Hct 31.0 L (36.0-48.0) % MCV 90 (80-98) fL MCH 30 (27-31) pg MCHC 34 (32-36) % Plt Count 416 H (150-400) K/uL Neut % (Auto) 64 (36-66) % Lymph % (Auto) 25 (24-44) % [place] % (Auto) 10 H (2-6) % Eos % (Auto) 1 L (2-4) % Baso % (Auto) 0 (0-1) % Sodium (140-148) mmol/L Potassium (3.6-5.2) mmol/L Chloride (100-108) mmol/L Carbon Dioxide (21-32) mmol/L Anion Gap (5.0-14.0) mmol/L BUN (7-18) mg/dL Creatinine (0.6-1.0) mg/dL Est Cr Clr Drug Dosing mL/min Estimated GFR (MDRD) (>60) Glucose (74-106) mg/dL Calcium (8.5-10.1) mg/dL 10/29/16 Range/Units 05:49 WBC (4.5-11.0) K/uL RBC (3.30-5.50) M/uL Hgb (12.0-15.0) g/dL Hct (36.0-48.0) % MCV (80-98) fL MCH (27-31) pg MCHC (32-36) % Plt Count (150-400) K/uL Neut % (Auto) (36-66) % Lymph % (Auto) (24-44) % [place] % (Auto) (2-6) % Eos % (Auto) (2-4) % Baso % (Auto) (0-1) % Sodium 143 (140-148) mmol/L Potassium 3.4 L (3.6-5.2) mmol/L Chloride 108 (100-108) mmol/L Carbon Dioxide 25 (21-32) mmol/L Anion Gap 13.4 (5.0-14.0) mmol/L BUN 5 L D (7-18) mg/dL Creatinine 0.6 (0.6-1.0) mg/dL Est Cr Clr Drug Dosing 111.45 mL/min Estimated GFR (MDRD) > 60 (>60) Glucose 109 H (74-106) mg/dL Calcium 8.1 L (8.5-10.1) mg/dL Fernando Results Last 24 Hours: Microbiology 10/28/16 23:49 Clostridium difficile (PCR) - Final Stool / Feces NEGATIVE CDIFF TOXIN 10/28/16 23:49 Stool for WBCs - Final Stool / Feces Med Orders - Current: Current Medications Acetaminophen (Tylenol) 650 mg PO Q4H PRN PRN Reason: Pain (Mild 1-3)/fever Ampicillin Sodium/Sulbactam (Sodium 1.5 gm/ Sodium Chloride) 50 mls @ 100 mls/ hr IV Q6H [facility] Last Admin: 10/29/16 05:26 Dose: 100 mls/hr Sodium Chloride (Normal Saline) 1,000 mls @ 125 mls/hr IV ASDIRECTED [facility]ATH[facility] Last Admin: 10/29/16 03:08 Dose: 125 mls/hr Potassium Chloride 20 meq/Lidocaine HCl 2 ml/ Sodium Chloride 112 mls @ 56 mls/ hr IV Q2H [facility] Stop: 10/29/16 13:59 Morphine Sulfate (Morphine Terrazzo Finisher Helper 150 Mg In 30 Ml) 0 mg IV ASDIRECTED PRN; Protocol PRN Reason: Pain Last Admin: 10/28/16 13:52 Dose: 2 mg Naloxone HCl (Narcan) 0.4 mg IVPUSH Q2M PRN PRN Reason: Respiratory Distress Ondansetron HCl (Zofran) 4 mg IV Q4H PRN PRN Reason: Nausea/Vomiting Last Admin: 10/29/16 05:26 Dose: 4 mg Pantoprazole Sodium (Protonix Iv) 40 mg IVPUSH Q24H [facility] Last Admin: 10/28/16 14:23 Dose: 40 mg Quetiapine Fumarate (Seroquel) 25 mg PO BEDTIME [facility] Last Admin: 10/28/16 20:45 Dose: 25 mg Sodium Chloride (Saline Flush) 10 ml FLUSH ASDIRECTED PRN PRN Reason: Keep Vein Open Discontinued Medications Acetaminophen (Tylenol Extra Strength) 1,000 mg PO ONETIME ONE Stop: 10/29/16 05:52 Last Admin: 10/29/16 06:14 Dose: 1,000 mg Hydromorphone HCl (Dilaudid) 0.5 mg IVPUSH ONETIME ONE Stop: 10/28/16 09:04 Last Admin: 10/28/16 09:15 Dose: Not Given Sodium Chloride (Normal Saline) 1,000 mls @ 999 mls/hr IV ASDIRECTED [facility] Last Admin: 10/28/16 09:11 Dose: 999 mls/hr Sodium Chloride (Normal Saline) 100 mls @ 3 mls/sec IV ASDIRECTED [facility] Last Admin: 10/28/16 10:13 Dose: 3 mls/sec Sodium Chloride (Normal Saline) 1,000 mls @ 500 mls/hr IV ASDIRECTED [facility] Last Admin: 10/28/16 10:31 Dose: 500 mls/hr Ampicillin Sodium/Sulbactam (Sodium 1.5 gm/ Sodium Chloride) 50 mls @ 100 mls/ hr IV ONETIME ONE Stop: 10/28/16 12:29 Last Admin: 10/28/16 11:39 Dose: 100 mls/hr Sodium Chloride (Normal Saline) 500 mls @ 250 mls/hr IV .BOLUS [facility] Stop: 10/28/16 19:31 Last Admin: 10/28/16 17:45 Dose: 250 mls/hr Iopamidol (Isovue-300 (61%)) 100 ml IV . DIRECTED [facility] Last Admin: 10/28/16 10:12 Dose: 100 ml Morphine Sulfate (Morphine) 2 mg IVPUSH ONETIME ONE Stop: 10/28/16 09:11 Last Admin: 10/28/16 09:20 Dose: 2 mg Morphine Sulfate (Morphine) 2 mg IVPUSH ONETIME ONE Stop: 10/28/16 10:27 Last Admin: 10/28/16 10:31 Dose: 2 mg Morphine Sulfate (Morphine) 2 mg IVPUSH ONETIME ONE Stop: 10/28/16 11:41 Last Admin: 10/28/16 11:41 Dose: 2 mg Ondansetron HCl (Zofran) 4 mg IVPUSH ONETIME ONE Stop: 10/28/16 09:04 Last Admin: 10/28/16 09:13 Dose: 4 mg Propofol (Diprivan 20 Ml) Confirm Administered Dose 200 mg .ROUTE .STK-MED ONE Stop: 10/29/16 08:31 - Exam Quality Assessment: DVT Prophylaxis General: Alert, Oriented, Cooperative, Mild Distress Lungs: Clear to Auscultation, Normal Respiratory Effort Cardiovascular: Regular Rate, Regular Rhythm, No Murmurs GI/Abdominal Exam: Normal Bowel Sounds, Soft, No Organomegaly, Tender. No: Distended, Guarding, Rigid, Rebound Extremities: Normal Inspection, Non-Tender, No Pedal Edema Skin: Warm, Dry, Intact - Problem List Review Problem List Initiated/Reviewed/Updated: Yes - My Orders Last 24 Hours: My Active Orders 10/28/16 11:31 Resuscitation Status Routine 10/28/16 13:30 Patient Status [ADT] Routine Communication Order [RC] STAT Intake and Output [RC] .PRN Notify Provider Consults [RC] ASDIRECTED Notify Provider Vital Signs [RC] ASDIRECTED Notify Provider [RC] PRN Oxygen Therapy [RC] PRN INSTRUMENTATION CONTROLS ENGINEER Record [RC] PER UNIT ROUTINE Peripheral IV Care [RC] Q12H Pulse Oximetry [RC] CONTINUOUS Up ad Ryann [RC] .PRN VTE/DVT Education [RC] .PRN Vital Signs [RC] Q4H Consult to Physician [CONS] Urgent Acetaminophen [Tylenol] 650 mg PO Q4H PRN Morphine PF [Morphine INSTRUMENTATION CONTROLS ENGINEER 150 MG in 30 ML] See Protocol IV ASDIRECTED PRN Naloxone [Narcan] 0.4 mg IVPUSH Q2M PRN Ondansetron [Zofran] 4 mg IV Q4H PRN Sodium Chloride 0.9% [Saline Flush] 10 ml FLUSH ASDIRECTED PRN Medication Discontinuation Instructions [OM.PC] Stat Peripheral IV Insertion Adult [OM.PC] Routine Sequential Compression Device [OM.PC] Per Unit Routine VTE Pharmacological Contraindications [AST] Per Unit Routine 10/28/16 14:00 Pantoprazole [ProTONIX IV] 40 mg IVPUSH Q24H 10/28/16 17:45 Sodium Chloride 0.9% [Normal Saline] 1,000 ml IV ASDIRECTED 10/28/16 23:49 CULTURE STOOL + SHIGATOX [RM] Stat 10/29/16 10:00 Potassium Chloride 20 meq Lidocaine 1% [Xylocaine 1%] 2 ml Sodium Chloride 0.9 % [Normal Saline] 100 ml IV Q2H 10/29/16 17:00 HGB [HEMOGLOBIN] [HEME] Stat 10/30/16 05:00 BASIC METABOLIC PANEL,BMP [CHEM] Timed CBC WITH AUTO DIFF [HEME] Timed MAGNESIUM [CHEM] Timed - Plan Plan:: ASSESSMENT AND PLAN COLITIS ASSOCIATED WITH BLOODY DIARRHEA-specific etiology not entirely apparent. She does have a known history of previous diverticulitis, ischemic colitis possible but current location would be somewhat atypical, most likely cause would seem to be infectious given relatively rapid onset of symptoms. Stool for C. difficile was found to be negative -Nothing by mouth -IV fluids for hydration and management of early sepsis -IV antibiotic therapy with Unasyn -Colonoscopy today with Dr. Espinoza -Stool cultures pending HYPERTENSION -Hold oral antihypertensive therapy -Monitor blood pressures and resume medication when stable MAINTENANCE ISSUES -DVT prophylaxis; SCUDs -GI prophylaxis; Protonix 40 mg IV every 24 hours -Singh catheter; not indicated -Nutrition; nothing by mouth -Nicotine dependence; not required CODE STATUS-FULL CODE ADMISSION STATUS-patient will be admitted to inpatient status, expect at least a 2 night hospital stay for evaluation and management of problems as outlined above. At the time of this admission I do not reasonably expected evaluation and management of this problem will require more than a 96 hour hospital stay. DISPOSITION-anticipate discharge to home after the hospital stay. PRIMARY CARE PROVIDER-
[2016-10-29] MEDS ORDERED: Lactated Ringers 1,000 ML ONE (09:59)
[2016-10-29] MEDS: Potassium Chloride 20 MEQ, Lidocaine 1% 2 ML in Sodium Chloride 0.9% 100 ML IV SCH ×2 (10:52→14:23)
[2016-10-29] MEDS: Pantoprazole 40 MG Vial IVPUSH SCH (14:21)
[2016-10-29] MEDS: QUEtiapine 25 MG Tab PO SCH (20:56)
[2016-10-30] MEDS: Ampicillin/Sulbactam Na 1.5 GM in Sodium Chloride 0.9% 50 ML IV SCH ×5 (00:29→23:28)
[2016-10-30] MEDS: Sodium Chloride 0.9% 1,000 ML IV SCH (00:31)
[2016-10-30] MEDS ORDERED: Morphine 2 MG/ML Syringe IVPUSH PRN (09:21)
--- NOTE | 2016-10-30 09:29 | PCM.PN ---
- General Info Date of Service: 10/30/16 Functional Status: Reports: Pain Controlled, Tolerating Diet, Ambulating - Review of Systems General: Reports: Weakness. Denies: Fever, Chills Pulmonary: Reports: No Symptoms Cardiovascular: Reports: No Symptoms Gastrointestinal: Denies: Abdominal Pain, Constipation, Diarrhea, Difficulty Swallowing, Hematochezia, Nausea, Vomiting Genitourinary: Reports: No Symptoms Systems Review Comment:: Ms. Lofton has been stable since yesterday, abdominal pain has improved but not totally resolved. Less diarrhea and no blood in the stool since yesterday. Colonoscopy performed by Dr. Espinoza showed inflammation in the colon and the sigmoid and descending regions. Biopsies were obtained but are pending at this time. Cultures thus far have been negative. White blood cell count has normalized. Vital signs have been stable and she has remained afebrile. - Patient Data Vitals - Most Recent: Last Vital Signs Temp 97.7 F 10/30/16 07:58 Pulse 63 10/30/16 07:58 Resp 16 10/30/16 07:58 BP 137/115 H 10/30/16 07:58 Pulse Ox 96 10/30/16 07:58 Weight - Most Recent: 165 lb 0.009 oz I&O - Last 24 Hours: Intake & Output 10/29/16 10/30/16 10/30/16 22:59 06:59 14:59 Intake Total 1690 1525 Output Total 1600 1500 Balance 90 25 Lab Results Last 24 Hours: Laboratory Results - last 24 hr 10/29/16 10/30/16 10/30/16 Range/Units 16:32 04:50 04:50 WBC 10.4 (4.5-11.0) K/uL RBC 3.39 (3.30-5.50) M/uL Hgb 10.0 L 10.2 L (12.0-15.0) g/dL Hct 30.4 L (36.0-48.0) % MCV 90 (80-98) fL MCH 30 (27-31) pg MCHC 34 (32-36) % Plt Count 412 H (150-400) K/uL Neut % (Auto) 54 (36-66) % Lymph % (Auto) 35 (24-44) % [place] % (Auto) 8 H (2-6) % Eos % (Auto) 2 (2-4) % Baso % (Auto) 0 (0-1) % Sodium 142 (140-148) mmol/L Potassium 3.6 (3.6-5.2) mmol/L Chloride 107 (100-108) mmol/L Carbon Dioxide 28 (21-32) mmol/L Anion Gap 6.6 (5.0-14.0) mmol/L BUN 3 L (7-18) mg/dL Creatinine 0.6 (0.6-1.0) mg/dL Est Cr Clr Drug Dosing 111.45 mL/min Estimated GFR (MDRD) > 60 (>60) Glucose 98 (74-106) mg/dL Calcium 8.5 (8.5-10.1) mg/dL Magnesium 1.5 L (1.8-2.4) mg/dL Fernando Results Last 24 Hours: Microbiology 10/28/16 23:49 Stool Culture - Preliminary Stool / Feces NORMAL ENTERIC JOEY 1 DAY - Final NEGATIVE FOR SHIGA TOXIN 1 - Final NEGATIVE FOR SHIGA TOXIN 2 10/28/16 23:49 Clostridium difficile (PCR) - Final Stool / Feces NEGATIVE CDIFF TOXIN Med Orders - Current: Current Medications Acetaminophen (Tylenol) 650 mg PO Q4H PRN PRN Reason: Pain (Mild 1-3)/fever Ampicillin Sodium/Sulbactam (Sodium 1.5 gm/ Sodium Chloride) 50 mls @ 100 mls/ hr IV Q6H [facility] Last Admin: 10/30/16 05:47 Dose: 100 mls/hr Magnesium Sulfate 2 gm/ Premix 50 mls @ 25 mls/hr IV Q6H [facility] Stop: 10/30/16 23:59 Morphine Sulfate (Morphine) 2 mg IVPUSH Q2H PRN PRN Reason: Pain Naloxone HCl (Narcan) 0.4 mg IVPUSH Q2M PRN PRN Reason: Respiratory Distress Ondansetron HCl (Zofran) 4 mg IV Q4H PRN PRN Reason: Nausea/Vomiting Last Admin: 10/29/16 05:26 Dose: 4 mg Oxycodone HCl (Oxycodone) 10 mg PO Q4H PRN PRN Reason: Pain Pantoprazole Sodium (Protonix Iv) 40 mg IVPUSH Q24H [facility] Last Admin: 10/29/16 14:21 Dose: 40 mg Quetiapine Fumarate (Seroquel) 25 mg PO BEDTIME [facility] Last Admin: 10/29/16 20:56 Dose: 25 mg Sodium Chloride (Saline Flush) 10 ml FLUSH ASDIRECTED PRN PRN Reason: Keep Vein Open Discontinued Medications Acetaminophen (Tylenol Extra Strength) 1,000 mg PO ONETIME ONE Stop: 10/29/16 05:52 Last Admin: 10/29/16 06:14 Dose: 1,000 mg Hydromorphone HCl (Dilaudid) 0.5 mg IVPUSH ONETIME ONE Stop: 10/28/16 09:04 Last Admin: 10/28/16 09:15 Dose: Not Given Sodium Chloride (Normal Saline) 1,000 mls @ 999 mls/hr IV ASDIRECTED [facility] Last Admin: 10/28/16 09:11 Dose: 999 mls/hr Sodium Chloride (Normal Saline) 100 mls @ 3 mls/sec IV ASDIRECTED [facility] Last Admin: 10/28/16 10:13 Dose: 3 mls/sec Sodium Chloride (Normal Saline) 1,000 mls @ 500 mls/hr IV ASDIRECTED [facility] Last Admin: 10/28/16 10:31 Dose: 500 mls/hr Ampicillin Sodium/Sulbactam (Sodium 1.5 gm/ Sodium Chloride) 50 mls @ 100 mls/ hr IV ONETIME ONE Stop: 10/28/16 12:29 Last Admin: 10/28/16 11:39 Dose: 100 mls/hr Sodium Chloride (Normal Saline) 500 mls @ 250 mls/hr IV .BOLUS [facility] Stop: 10/28/16 19:31 Last Admin: 10/28/16 17:45 Dose: 250 mls/hr Sodium Chloride (Normal Saline) 1,000 mls @ 125 mls/hr IV ASDIRECTED [facility] Last Admin: 10/30/16 00:31 Dose: 125 mls/hr Potassium Chloride 20 meq/Lidocaine HCl 2 ml/ Sodium Chloride 112 mls @ 56 mls/ hr IV Q2H [facility] Stop: 10/29/16 13:59 Last Admin: 10/29/16 14:23 Dose: 56 mls/hr Lactated Ringer's (Ringers, Lactated) Confirm Administered Dose 1,000 mls @ as directed .ROUTE .STK-MED ONE Stop: 10/29/16 10:00 Iopamidol (Isovue-300 (61%)) 100 ml IV . DIRECTED [facility] Last Admin: 10/28/16 10:12 Dose: 100 ml Morphine Sulfate (Morphine) 2 mg IVPUSH ONETIME ONE Stop: 10/28/16 09:11 Last Admin: 10/28/16 09:20 Dose: 2 mg Morphine Sulfate (Morphine) 2 mg IVPUSH ONETIME ONE Stop: 10/28/16 10:27 Last Admin: 10/28/16 10:31 Dose: 2 mg Morphine Sulfate (Morphine) 2 mg IVPUSH ONETIME ONE Stop: 10/28/16 11:41 Last Admin: 10/28/16 11:41 Dose: 2 mg Morphine Sulfate (Morphine Anthropology Professor 150 Mg In 30 Ml) 0 mg IV ASDIRECTED PRN; Protocol PRN Reason: Pain Last Admin: 10/28/16 13:52 Dose: 2 mg Ondansetron HCl (Zofran) 4 mg IVPUSH ONETIME ONE Stop: 10/28/16 09:04 Last Admin: 10/28/16 09:13 Dose: 4 mg Propofol (Diprivan 20 Ml) Confirm Administered Dose 200 mg .ROUTE .STK-MED ONE Stop: 10/29/16 08:31 Propofol (Diprivan 20 Ml) Confirm Administered Dose 200 mg .ROUTE .STK-MED ONE Stop: 10/29/16 09:58 - Exam Quality Assessment: DVT Prophylaxis General: Alert, Oriented, Cooperative, Mild Distress Lungs: Clear to Auscultation, Normal Respiratory Effort Cardiovascular: Regular Rate, Regular Rhythm, No Murmurs GI/Abdominal Exam: Normal Bowel Sounds, Soft, No Organomegaly, Tender. No: Distended, Guarding, Rigid, Rebound Extremities: Non-Tender, No Pedal Edema Skin: Warm, Dry, Intact - Problem List Review Problem List Initiated/Reviewed/Updated: Yes - My Orders Last 24 Hours: My Active Orders 10/29/16 17:16 RED BLOOD CELLS LP [BBK] Routine 10/30/16 09:21 Morphine 2 mg IVPUSH Q2H PRN oxyCODONE 10 mg PO Q4H PRN Convert IV to Saline Lock [OM.PC] Routine 10/30/16 10:00 Magnesium Sulfate/Water [Magnesium Sulfate 2 GM in Water 50 ML] 2 gm Premix Bag 1 bag IV Q6H 10/31/16 05:00 BASIC METABOLIC PANEL,BMP [CHEM] Timed CBC WITH AUTO DIFF [HEME] Timed MAGNESIUM [CHEM] Timed - Plan Plan:: ASSESSMENT AND PLAN COLITIS ASSOCIATED WITH BLOODY DIARRHEA-likely infectious, cultures have been negative. Symptomatically improved with current management, less pain and decrease in diarrhea which is no longer bloody. -Full liquid diet -Saline lock IV -IV antibiotic therapy with Unasyn -Surgical follow-up per Dr. Espinoza HYPERTENSION -Hold oral antihypertensive therapy -Monitor blood pressures and resume medication when stable MAINTENANCE ISSUES -DVT prophylaxis; SCUDs -GI prophylaxis; Protonix 40 mg IV every 24 hours -Singh catheter; not indicated -Nutrition; nothing by mouth -Nicotine dependence; not required CODE STATUS-FULL CODE ADMISSION STATUS-patient will be admitted to inpatient status, expect at least a 2 night hospital stay for evaluation and management of problems as outlined above. At the time of this admission I do not reasonably expected evaluation and management of this problem will require more than a 96 hour hospital stay. DISPOSITION-anticipate discharge to home after the hospital stay. PRIMARY CARE PROVIDER-
[2016-10-30] MEDS: oxyCODONE 5 MG Tab PO PRN ×3 (09:30→19:13)
[2016-10-30] MEDS: Magnesium Sulfate/Water 2 GM in Premix Bag 1 BAG IV SCH ×3 (10:21→21:00)
[2016-10-30] MEDS: Pantoprazole 40 MG Vial IVPUSH SCH (16:32)
[2016-10-30] MEDS: QUEtiapine 25 MG Tab PO SCH (21:00)
[2016-10-31] MEDS: Ampicillin/Sulbactam Na 1.5 GM in Sodium Chloride 0.9% 50 ML IV SCH ×4 (05:01→23:28)
[2016-10-31] MEDS: oxyCODONE 5 MG Tab PO PRN ×4 (05:01→17:51)
--- NOTE | 2016-10-31 08:03 | PCM.SURGPN ---
- General Info Date of Service: 10/31/16 POD#: 0 Admission Diagnosis/Problem: Colitis Functional Status: Reports: Pain Controlled, Tolerating Diet, Ambulating, Urinating - Review of Systems General: Reports: No Symptoms HEENT: Reports: No Symptoms Pulmonary: Reports: No Symptoms Cardiovascular: Reports: No Symptoms Gastrointestinal: Reports: Abdominal Pain Genitourinary: Reports: No Symptoms Musculoskeletal: Reports: No Symptoms Skin: Reports: No Symptoms Neurological: Reports: No Symptoms Psychiatric: Reports: No Symptoms Systems Review Comment:: Jaida reports that she has some abdominal pain, mostly with palpation. She states that she is familiar with her diagnosis as she has had an episode of colitis in the past and was treated with prednisone by her PCP, Kati Pulliam. Has not had a BM since Thursday. States that she is doing well otherwise. - Patient Data Vitals - Most Recent: Last Vital Signs Temp 35.7 C 10/31/16 02:48 Pulse 78 10/31/16 02:48 Resp 14 10/31/16 02:48 BP 145/82 H 10/31/16 02:48 Pulse Ox 96 10/31/16 02:48 Weight - Most Recent: 74.843 kg I&O - Last 24 Hours: Intake & Output 10/30/16 10/31/16 10/31/16 22:59 06:59 14:59 Intake Total 120 Balance 120 Lab Results Last 24 Hrs: Laboratory Results - last 24 hr 10/31/16 10/31/16 Range/Units 05:39 05:39 WBC 8.0 (4.5-11.0) K/uL RBC 3.73 (3.30-5.50) M/uL Hgb 11.1 L (12.0-15.0) g/dL Hct 32.7 L (36.0-48.0) % MCV 88 (80-98) fL MCH 30 (27-31) pg MCHC 34 (32-36) % Plt Count 484 H (150-400) K/uL Neut % (Auto) 50 (36-66) % Lymph % (Auto) 37 (24-44) % Isabella % (Auto) 9 H (2-6) % Eos % (Auto) 3 (2-4) % Baso % (Auto) 0 (0-1) % Sodium 142 (140-148) mmol/L Potassium 3.7 (3.6-5.2) mmol/L Chloride 105 (100-108) mmol/L Carbon Dioxide 27 (21-32) mmol/L Anion Gap 10.0 (5.0-14.0) mmol/L BUN 4 L (7-18) mg/dL Creatinine 0.7 (0.6-1.0) mg/dL Est Cr Clr Drug Dosing 95.53 mL/min Estimated GFR (MDRD) > 60 (>60) Glucose 93 (74-106) mg/dL Calcium 8.5 (8.5-10.1) mg/dL Magnesium 2.4 D (1.8-2.4) mg/dL Fernando Results Last 24 Hrs: Microbiology 10/28/16 23:49 Stool Culture - Preliminary Stool / Feces NORMAL ENTERIC JOEY 2 DAYS - Final NEGATIVE FOR SHIGA TOXIN 1 - Final NEGATIVE FOR SHIGA TOXIN 2 Med Orders - Current: Current Medications Acetaminophen (Tylenol) 650 mg PO Q4H PRN PRN Reason: Pain (Mild 1-3)/fever Last Admin: 10/30/16 16:32 Dose: 650 mg Ampicillin Sodium/Sulbactam (Sodium 1.5 gm/ Sodium Chloride) 50 mls @ 100 mls/ hr IV Q6H [facility] Last Admin: 10/31/16 05:01 Dose: 100 mls/hr Morphine Sulfate (Morphine) 2 mg IVPUSH Q2H PRN PRN Reason: Pain Naloxone HCl (Narcan) 0.4 mg IVPUSH Q2M PRN PRN Reason: Respiratory Distress Ondansetron HCl (Zofran) 4 mg IV Q4H PRN PRN Reason: Nausea/Vomiting Last Admin: 10/29/16 05:26 Dose: 4 mg Oxycodone HCl (Oxycodone) 10 mg PO Q4H PRN PRN Reason: Pain Last Admin: 10/31/16 05:01 Dose: 10 mg Pantoprazole Sodium (Protonix Iv) 40 mg IVPUSH Q24H [facility] Last Admin: 10/30/16 16:32 Dose: 40 mg Quetiapine Fumarate (Seroquel) 25 mg PO BEDTIME [facility] Last Admin: 10/30/16 21:00 Dose: 25 mg Sodium Chloride (Saline Flush) 10 ml FLUSH ASDIRECTED PRN PRN Reason: Keep Vein Open Discontinued Medications Acetaminophen (Tylenol Extra Strength) 1,000 mg PO ONETIME ONE Stop: 10/29/16 05:52 Last Admin: 10/29/16 06:14 Dose: 1,000 mg Hydromorphone HCl (Dilaudid) 0.5 mg IVPUSH ONETIME ONE Stop: 10/28/16 09:04 Last Admin: 10/28/16 09:15 Dose: Not Given Sodium Chloride (Normal Saline) 1,000 mls @ 999 mls/hr IV ASDIRECTED [facility] Last Admin: 10/28/16 09:11 Dose: 999 mls/hr Sodium Chloride (Normal Saline) 100 mls @ 3 mls/sec IV ASDIRECTED [facility] Last Admin: 10/28/16 10:13 Dose: 3 mls/sec Sodium Chloride (Normal Saline) 1,000 mls @ 500 mls/hr IV ASDIRECTED [facility] Last Admin: 10/28/16 10:31 Dose: 500 mls/hr Ampicillin Sodium/Sulbactam (Sodium 1.5 gm/ Sodium Chloride) 50 mls @ 100 mls/ hr IV ONETIME ONE Stop: 10/28/16 12:29 Last Admin: 10/28/16 11:39 Dose: 100 mls/hr Sodium Chloride (Normal Saline) 500 mls @ 250 mls/hr IV .BOLUS [facility] Stop: 10/28/16 19:31 Last Admin: 10/28/16 17:45 Dose: 250 mls/hr Sodium Chloride (Normal Saline) 1,000 mls @ 125 mls/hr IV ASDIRECTED [facility] Last Admin: 10/30/16 00:31 Dose: 125 mls/hr Potassium Chloride 20 meq/Lidocaine HCl 2 ml/ Sodium Chloride 112 mls @ 56 mls/ hr IV Q2H [facility] Stop: 10/29/16 13:59 Last Admin: 10/29/16 14:23 Dose: 56 mls/hr Lactated Ringer's (Ringers, Lactated) Confirm Administered Dose 1,000 mls @ as directed .ROUTE .STK-MED ONE Stop: 10/29/16 10:00 Magnesium Sulfate 2 gm/ Premix 50 mls @ 25 mls/hr IV Q6H [facility] Stop: 10/30/16 23:59 Last Admin: 10/30/16 21:00 Dose: 25 mls/hr Iopamidol (Isovue-300 (61%)) 100 ml IV . DIRECTED [facility] Last Admin: 10/28/16 10:12 Dose: 100 ml Morphine Sulfate (Morphine) 2 mg IVPUSH ONETIME ONE Stop: 10/28/16 09:11 Last Admin: 10/28/16 09:20 Dose: 2 mg Morphine Sulfate (Morphine) 2 mg IVPUSH ONETIME ONE Stop: 10/28/16 10:27 Last Admin: 10/28/16 10:31 Dose: 2 mg Morphine Sulfate (Morphine) 2 mg IVPUSH ONETIME ONE Stop: 10/28/16 11:41 Last Admin: 10/28/16 11:41 Dose: 2 mg Morphine Sulfate (Morphine Seal Delivery Vehicle Officer 150 Mg In 30 Ml) 0 mg IV ASDIRECTED PRN; Protocol PRN Reason: Pain Last Admin: 10/28/16 13:52 Dose: 2 mg Ondansetron HCl (Zofran) 4 mg IVPUSH ONETIME ONE Stop: 10/28/16 09:04 Last Admin: 10/28/16 09:13 Dose: 4 mg Propofol (Diprivan 20 Ml) Confirm Administered Dose 200 mg .ROUTE .STK-MED ONE Stop: 10/29/16 08:31 Propofol (Diprivan 20 Ml) Confirm Administered Dose 200 mg .ROUTE .STK-MED ONE Stop: 10/29/16 09:58 - Exam Wound/Incisions: Other (NA) Quality Assessment: DVT Prophylaxis General: Alert, Oriented, No Acute Distress HEENT: Pupils Equal, Pupils Reactive Neck: Supple Lungs: Clear to Auscultation, Normal Respiratory Effort Cardiovascular: Regular Rate, Regular Rhythm, No Murmurs GI/Abdominal Exam: Normal Bowel Sounds, Soft, No Organomegaly, Tender (on palpation to right and left lower quadrants ) Extremities: Normal Inspection, No Pedal Edema Skin: Warm, Dry, Intact Neurological: No New Focal Deficit Psy/Mental Status: Alert, Normal Affect, Normal Mood - Problem List & Annotations (1) Colitis SNOMED Code(s): 42920442 Code(s): K52.9 - NONINFECTIVE GASTROENTERITIS AND COLITIS, UNSPECIFIED Status: Acute Current Visit: Yes - Problem List Review Problem List Initiated/Reviewed/Updated: Yes - My Orders Last 24 Hours: Active Orders 24 hr Category Date Time Status Regular Diet [DIET] Diet 10/31/16 Breakfast Active Morphine Med 10/30/16 09:21 Active 2 mg IVPUSH Q2H PRN oxyCODONE Med 10/30/16 09:21 Active 10 mg PO Q4H PRN Convert IV to Saline Lock [OM.PC] Routine Oth 10/30/16 09:21 Ordered Medication Orders Acetaminophen (Tylenol) 650 mg PO Q4H PRN PRN Reason: Pain (Mild 1-3)/fever Last Admin: 10/30/16 16:32 Dose: 650 mg Ampicillin Sodium/Sulbactam (Sodium 1.5 gm/ Sodium Chloride) 50 mls @ 100 mls/ hr IV Q6H [facility] Last Admin: 10/31/16 05:01 Dose: 100 mls/hr Admin: 10/30/16 23:28 Dose: 100 mls/hr Admin: 10/30/16 18:12 Dose: 100 mls/hr Admin: 10/30/16 13:59 Dose: 100 mls/hr Admin: 10/30/16 05:47 Dose: 100 mls/hr Admin: 10/30/16 00:29 Dose: 100 mls/hr Admin: 10/29/16 17:49 Dose: 100 mls/hr Admin: 10/29/16 13:03 Dose: 100 mls/hr Admin: 10/29/16 05:26 Dose: 100 mls/hr Admin: 10/28/16 23:37 Dose: 100 mls/hr Admin: 10/28/16 18:03 Dose: 100 mls/hr Morphine Sulfate (Morphine) 2 mg IVPUSH Q2H PRN PRN Reason: Pain Naloxone HCl (Narcan) 0.4 mg IVPUSH Q2M PRN PRN Reason: Respiratory Distress Ondansetron HCl (Zofran) 4 mg IV Q4H PRN PRN Reason: Nausea/Vomiting Last Admin: 10/29/16 05:26 Dose: 4 mg Oxycodone HCl (Oxycodone) 10 mg PO Q4H PRN PRN Reason: Pain Last Admin: 10/31/16 05:01 Dose: 10 mg Admin: 10/30/16 19:13 Dose: 10 mg Admin: 10/30/16 13:59 Dose: 10 mg Admin: 10/30/16 09:30 Dose: 10 mg Pantoprazole Sodium (Protonix Iv) 40 mg IVPUSH Q24H [facility] Last Admin: 10/30/16 16:32 Dose: 40 mg Admin: 10/29/16 14:21 Dose: 40 mg Admin: 10/28/16 14:23 Dose: 40 mg Quetiapine Fumarate (Seroquel) 25 mg PO BEDTIME [facility] Last Admin: 10/30/16 21:00 Dose: 25 mg Admin: 10/29/16 20:56 Dose: 25 mg Admin: 10/28/16 20:45 Dose: 25 mg Sodium Chloride (Saline Flush) 10 ml FLUSH ASDIRECTED PRN PRN Reason: Keep Vein Open - Assessment Assessment (Free Text/Narrative):: Colitis associated with bloody diarrhea. Her symptoms have improved with current management. She only complains of moderate tenderness on palpation. Hypertension and maintenance issues - managed by hospitalist. - Plan Plan (Free Text/Narrative):: Regular Diet. Continue current management. IMMANUEL Gabriel-Student
--- NOTE | 2016-10-31 12:26 | PCM.PN ---
- General Info Date of Service: 10/31/16 - Review of Systems General: Denies: Fever, Weakness, Chills Pulmonary: Reports: No Symptoms Cardiovascular: Reports: No Symptoms Gastrointestinal: Reports: Abdominal Pain. Denies: Diarrhea, Hematochezia, Nausea, Vomiting Genitourinary: Reports: No Symptoms Systems Review Comment:: Ms. Lofton has felt significantly improved since yesterday, abdominal pain is almost totally resolved except with palpation. She's had no diarrhea and no hematochezia. Vital signs have been stable and she has remained afebrile. Currently tolerating a soft diet, energy level seems to be improved. Vital signs have been stable and she has remained afebrile. - Patient Data Vitals - Most Recent: Last Vital Signs Temp 97.4 F 10/31/16 08:00 Pulse 65 10/31/16 08:00 Resp 16 10/31/16 08:00 BP 147/90 H 10/31/16 08:00 Pulse Ox 98 10/31/16 08:00 Weight - Most Recent: 165 lb 0.009 oz I&O - Last 24 Hours: Intake & Output 10/30/16 10/31/16 10/31/16 22:59 06:59 14:59 Intake Total 120 Balance 120 Lab Results Last 24 Hours: Laboratory Results - last 24 hr 10/31/16 10/31/16 Range/Units 05:39 05:39 WBC 8.0 (4.5-11.0) K/uL RBC 3.73 (3.30-5.50) M/uL Hgb 11.1 L (12.0-15.0) g/dL Hct 32.7 L (36.0-48.0) % MCV 88 (80-98) fL MCH 30 (27-31) pg MCHC 34 (32-36) % Plt Count 484 H (150-400) K/uL Neut % (Auto) 50 (36-66) % Lymph % (Auto) 37 (24-44) % [place] % (Auto) 9 H (2-6) % Eos % (Auto) 3 (2-4) % Baso % (Auto) 0 (0-1) % Sodium 142 (140-148) mmol/L Potassium 3.7 (3.6-5.2) mmol/L Chloride 105 (100-108) mmol/L Carbon Dioxide 27 (21-32) mmol/L Anion Gap 10.0 (5.0-14.0) mmol/L BUN 4 L (7-18) mg/dL Creatinine 0.7 (0.6-1.0) mg/dL Est Cr Clr Drug Dosing 95.53 mL/min Estimated GFR (MDRD) > 60 (>60) Glucose 93 (74-106) mg/dL Calcium 8.5 (8.5-10.1) mg/dL Magnesium 2.4 D (1.8-2.4) mg/dL Fernando Results Last 24 Hours: Microbiology 10/28/16 23:49 Stool Culture - Preliminary Stool / Feces NORMAL ENTERIC JOEY 2 DAYS - Final NEGATIVE FOR SHIGA TOXIN 1 - Final NEGATIVE FOR SHIGA TOXIN 2 Med Orders - Current: Current Medications Acetaminophen (Tylenol) 650 mg PO Q4H PRN PRN Reason: Pain (Mild 1-3)/fever Last Admin: 10/30/16 16:32 Dose: 650 mg Atorvastatin Calcium (Lipitor) 10 mg PO BEDTIME [facility] Ampicillin Sodium/Sulbactam (Sodium 1.5 gm/ Sodium Chloride) 50 mls @ 100 mls/ hr IV Q6H [facility] Last Admin: 10/31/16 05:01 Dose: 100 mls/hr Lactobacillus Rhamnosus (Culturelle) 2 cap PO BID [facility] Morphine Sulfate (Morphine) 2 mg IVPUSH Q2H PRN PRN Reason: Pain Naloxone HCl (Narcan) 0.4 mg IVPUSH Q2M PRN PRN Reason: Respiratory Distress Non-Formulary Medication (Lisinopril/Hydrochlorothiazide [Zestoretic 10-12.5 Mg Tablet]) 1 each PO DAILY [facility] Non-Formulary Medication (Omeprazole [Omeprazole]) 20 mg PO DAILY [facility] Ondansetron HCl (Zofran) 4 mg IV Q4H PRN PRN Reason: Nausea/Vomiting Last Admin: 10/29/16 05:26 Dose: 4 mg Oxycodone HCl (Oxycodone) 10 mg PO Q4H PRN PRN Reason: Pain Last Admin: 10/31/16 09:26 Dose: 10 mg Quetiapine Fumarate (Seroquel) 25 mg PO BEDTIME [facility] Last Admin: 10/30/16 21:00 Dose: 25 mg Sodium Chloride (Saline Flush) 10 ml FLUSH ASDIRECTED PRN PRN Reason: Keep Vein Open Discontinued Medications Acetaminophen (Tylenol Extra Strength) 1,000 mg PO ONETIME ONE Stop: 10/29/16 05:52 Last Admin: 10/29/16 06:14 Dose: 1,000 mg Hydromorphone HCl (Dilaudid) 0.5 mg IVPUSH ONETIME ONE Stop: 10/28/16 09:04 Last Admin: 10/28/16 09:15 Dose: Not Given Sodium Chloride (Normal Saline) 1,000 mls @ 999 mls/hr IV ASDIRECTED [facility] Last Admin: 10/28/16 09:11 Dose: 999 mls/hr Sodium Chloride (Normal Saline) 100 mls @ 3 mls/sec IV ASDIRECTED [facility] Last Admin: 10/28/16 10:13 Dose: 3 mls/sec Sodium Chloride (Normal Saline) 1,000 mls @ 500 mls/hr IV ASDIRECTED [facility] Last Admin: 10/28/16 10:31 Dose: 500 mls/hr Ampicillin Sodium/Sulbactam (Sodium 1.5 gm/ Sodium Chloride) 50 mls @ 100 mls/ hr IV ONETIME ONE Stop: 10/28/16 12:29 Last Admin: 10/28/16 11:39 Dose: 100 mls/hr Sodium Chloride (Normal Saline) 500 mls @ 250 mls/hr IV .BOLUS [facility] Stop: 10/28/16 19:31 Last Admin: 10/28/16 17:45 Dose: 250 mls/hr Sodium Chloride (Normal Saline) 1,000 mls @ 125 mls/hr IV ASDIRECTED [facility] Last Admin: 10/30/16 00:31 Dose: 125 mls/hr Potassium Chloride 20 meq/Lidocaine HCl 2 ml/ Sodium Chloride 112 mls @ 56 mls/ hr IV Q2H [facility] Stop: 10/29/16 13:59 Last Admin: 10/29/16 14:23 Dose: 56 mls/hr Lactated Ringer's (Ringers, Lactated) Confirm Administered Dose 1,000 mls @ as directed .ROUTE .STK-MED ONE Stop: 10/29/16 10:00 Magnesium Sulfate 2 gm/ Premix 50 mls @ 25 mls/hr IV Q6H [facility] Stop: 10/30/16 23:59 Last Admin: 10/30/16 21:00 Dose: 25 mls/hr Iopamidol (Isovue-300 (61%)) 100 ml IV . DIRECTED [facility] Last Admin: 10/28/16 10:12 Dose: 100 ml Morphine Sulfate (Morphine) 2 mg IVPUSH ONETIME ONE Stop: 10/28/16 09:11 Last Admin: 10/28/16 09:20 Dose: 2 mg Morphine Sulfate (Morphine) 2 mg IVPUSH ONETIME ONE Stop: 10/28/16 10:27 Last Admin: 10/28/16 10:31 Dose: 2 mg Morphine Sulfate (Morphine) 2 mg IVPUSH ONETIME ONE Stop: 10/28/16 11:41 Last Admin: 10/28/16 11:41 Dose: 2 mg Morphine Sulfate (Morphine Pure Pak Machine Operator 150 Mg In 30 Ml) 0 mg IV ASDIRECTED PRN; Protocol PRN Reason: Pain Last Admin: 10/28/16 13:52 Dose: 2 mg Ondansetron HCl (Zofran) 4 mg IVPUSH ONETIME ONE Stop: 10/28/16 09:04 Last Admin: 10/28/16 09:13 Dose: 4 mg Pantoprazole Sodium (Protonix Iv) 40 mg IVPUSH Q24H [facility] Last Admin: 10/30/16 16:32 Dose: 40 mg Propofol (Diprivan 20 Ml) Confirm Administered Dose 200 mg .ROUTE .STK-MED ONE Stop: 10/29/16 08:31 Propofol (Diprivan 20 Ml) Confirm Administered Dose 200 mg .ROUTE .STK-MED ONE Stop: 10/29/16 09:58 - Exam Quality Assessment: DVT Prophylaxis General: Alert, Oriented, Cooperative, No Acute Distress Lungs: Clear to Auscultation, Normal Respiratory Effort Cardiovascular: Regular Rate, Regular Rhythm, No Murmurs GI/Abdominal Exam: Normal Bowel Sounds, Soft, No Organomegaly, Tender. No: Distended, Guarding, Rigid, Rebound Extremities: Non-Tender, No Pedal Edema Skin: Warm, Dry, Intact - Problem List Review Problem List Initiated/Reviewed/Updated: Yes - My Orders Last 24 Hours: My Active Orders 10/31/16 12:30 Lactobacillus Rhamnosus GG [Culturelle] 2 cap PO BID Lisinopril/Hydrochlorothiazide [Zestoretic 10-12.5 mg Tablet] 1 each PO DAILY Omeprazole [Omeprazole] 20 mg PO DAILY 10/31/16 21:00 atorvaSTATin [Lipitor] 10 mg PO BEDTIME 10/31/16 Lunch Post Surgical Soft [Soft Diet] [DIET] - Plan Plan:: ASSESSMENT AND PLAN COLITIS ASSOCIATED WITH BLOODY DIARRHEA-likely infectious, cultures have been negative. Symptomatically improved with current management, pain resolved except on palpation, diarrhea has fully resolved -Soft diet -Saline lock IV -IV antibiotic therapy with Unasyn -Surgical follow-up per Dr. Espinoza HYPERTENSION-blood pressure has been elevated -Resume antihypertensive therapy -Continue to monitor blood pressure MAINTENANCE ISSUES -DVT prophylaxis; SCUDs -GI prophylaxis; omeprazole 20 mg by mouth daily -Singh catheter; not indicated -Nutrition; nothing by mouth -Nicotine dependence; not required CODE STATUS-FULL CODE ADMISSION STATUS-patient will be admitted to inpatient status, expect at least a 2 night hospital stay for evaluation and management of problems as outlined above. At the time of this admission I do not reasonably expected evaluation and management of this problem will require more than a 96 hour hospital stay. DISPOSITION-anticipate discharge to home tomorrow PRIMARY CARE PROVIDER-
[2016-10-31] MEDS: Lactobacillus Rhamnosus GG (Probiotic) Cap PO SCH ×2 (13:47→21:20)
[2016-10-31] MEDS: Lisinopril 10 MG Tab PO SCH (13:48)
[2016-10-31] MEDS: Pantoprazole 40 MG Tab.CR PO SCH (13:48)
[2016-10-31] MEDS: Hydrochlorothiazide 12.5 MG Cap PO SCH (13:49)
[2016-10-31] MEDS ORDERED: atorvaSTATin 10 MG Tab PO SCH (21:00)
[2016-10-31] MEDS: QUEtiapine 25 MG Tab PO SCH (21:21)
[2016-11-01] MEDS: oxyCODONE 5 MG Tab PO PRN ×3 (04:40→13:33)
[2016-11-01] MEDS: Ampicillin/Sulbactam Na 1.5 GM in Sodium Chloride 0.9% 50 ML IV SCH ×2 (05:43→11:42)
[2016-11-01] MEDS: Pantoprazole 40 MG Tab.CR PO SCH (07:11)
[2016-11-01] MEDS: Lactobacillus Rhamnosus GG (Probiotic) Cap PO SCH (08:54)
[2016-11-01] MEDS: Lisinopril 10 MG Tab PO SCH (08:54)
[2016-11-01 08:55] VITALS: BP 141/103
[2016-11-01] MEDS: Hydrochlorothiazide 12.5 MG Cap PO SCH (08:55)
--- NOTE | 2016-11-01 13:02 | PCM.DCSUM1 ---
Discharge Summary - Hospital Course Brief History: Ms. Lofton is a 45-year-old woman who was admitted through the emergency department with bloody diarrhea secondary to infectious colitis of the descending and sigmoid colon. - Discharge Data Discharge Date: 11/01/16 Discharge Disposition: Home, Self-Care 01 Condition: Fair - Discharge Diagnosis/Problem(s) (1) Hematochezia SNOMED Code(s): 366976567 ICD Code: K92.1 - MELENA Status: Acute Current Visit: Yes (2) Infectious colitis SNOMED Code(s): 70969081 ICD Code: A09 - INFECTIOUS GASTROENTERITIS AND COLITIS, UNSPECIFIED Status : Acute Current Visit: Yes - Patient Summary/Data Consults: Consultations 10/28/16 13:30 Consult to Physician [CONS] Urgent Consulting Provider: Patrick Espinoza Courtesy Call Completed to Consulting Physician: Yes Reason for Consult: Colitis Hospital Course: Ms. Lofton is a 45-year-old woman who noted symptoms of weakness, chills, and nausea for a period of 2 days prior to admission. Early in the morning of admission she developed frequent bloody stools and presented to the emergency department for further evaluation. White blood cell count was found to be elevated and she was mildly tachycardic. There was no evidence of significant fever and her hemoglobin level was within acceptable range. CT scan of the abdomen showed evidence of inflammation within the descending and sigmoid colon consistent with colitis. This is felt to be likely infectious in nature although other diagnoses were entertained including inflammatory bowel disease and ischemic colitis. She was admitted to the hospital and initially kept nothing by mouth. IV fluids were given for hydration, antibiotic therapy as needed, and pain medication in the form of Dilaudid via [employer]. On the day after admission she was seen and evaluated by Dr. Espinoza for surgical consult, colonoscopy was performed which did document inflammation in the descending and sigmoid colon. Biopsies were obtained which are pending at the time of discharge. She was placed on IV antibiotic therapy with Unasyn which she remained on throughout the hospital course. She remained afebrile and her white blood cell count normalized, pain gradually decreased during hospitalization but had not totally resolved by the time of discharge. She was started on a full liquid diet and IV fluids were discontinued. By the time of discharge she was tolerating a soft low residue diet. She had been treated with probiotic therapy during hospitalization this will be continued after discharge. She will be discharged home on additional week of oral antibiotic therapy with Augmentin 875 one tablet by mouth twice a day. Activity will be as tolerated and she will remain on a soft low residue diet. Follow-up appointment will be scheduled with her primary care provider Kati Pulliam within one week. If she notes recurrent symptoms fever or any significant change she will present to the emergency department for reevaluation. - Patient Instructions Diet: GI Soft/Low Residue/Low Fiber Activity: As Tolerated Other/Special Instructions: Please schedule follow-up appointment with Kati Pulliam within one week. - Discharge Plan Prescriptions/Med Rec: Amoxicillin/Potassium Clav [Augmentin 875-125 Tablet] 1 each PO BID #14 tablet Lactobacillus Rhamnosus GG [Culturelle] 2 cap PO BID #60 cap oxyCODONE 5 mg PO Q4H PRN #20 tablet PRN Reason: Pain Home Medications: Home Meds MV,Ca,Min/Iron Fum/FA/Vit K [Multi For Her Tablet] 1 tab PO DAILY 05/03/14 [ History] QUEtiapine [SEROquel] 25 mg PO DAILY 05/03/14 [History] Lisinopril/Hydrochlorothiazide [Zestoretic 10-12.5 mg Tablet] 1 each PO DAILY [History] atorvaSTATin [Lipitor] 10 mg PO BEDTIME 09/04/16 [History] Omeprazole 20 mg PO DAILY 10/15/16 [History] tiZANidine [Zanaflex] 4 mg PO Q8H 10/15/16 [History] Amoxicillin/Potassium Clav [Augmentin 875-125 Tablet] 1 each PO BID #14 tablet 11/01/16 [Rx] Lactobacillus Rhamnosus GG [Culturelle] 2 cap PO BID #60 cap 11/01/16 [Rx] oxyCODONE 5 mg PO Q4H PRN #20 tablet 11/01/16 [Rx] Referrals: Kati Pulliam CNM [Mid-] - - Patient Data Vitals - Most Recent: Last Vital Signs Temp 97.9 F 11/01/16 11:53 Pulse 68 11/01/16 11:53 Resp 16 11/01/16 11:53 BP 141/103 H 11/01/16 08:55 Pulse Ox 98 11/01/16 11:53 Weight - Most Recent: 165 lb 0.009 oz I&O - Last 24 hours: Intake & Output 10/31/16 11/01/16 11/01/16 22:59 06:59 14:59 Intake Total 500 600 490 Balance 500 600 490 CHELY Results - Last 24 hrs: Microbiology 10/28/16 23:49 Stool Culture - Final Stool / Feces NORMAL ENTERIC JOEY. NO SALMONELLA, SHIGELLA, CAMPYLOBACTER OR E.COLI O157 ISOLATED. - Final NEGATIVE FOR SHIGA TOXIN 1 - Final NEGATIVE FOR SHIGA TOXIN 2 Med Orders - Current: Current Medications Acetaminophen (Tylenol) 650 mg PO Q4H PRN PRN Reason: Pain (Mild 1-3)/fever Last Admin: 10/30/16 16:32 Dose: 650 mg Atorvastatin Calcium (Lipitor) 10 mg PO BEDTIME [facility] Last Admin: 10/31/16 21:20 Dose: 10 mg Hydrochlorothiazide (Hydrochlorothiazide) 12.5 mg PO DAILY [facility] Last Admin: 11/01/16 08:55 Dose: 12.5 mg Ampicillin Sodium/Sulbactam (Sodium 1.5 gm/ Sodium Chloride) 50 mls @ 100 mls/ hr IV Q6H [facility] Last Admin: 11/01/16 11:42 Dose: 100 mls/hr Lactobacillus Rhamnosus (Culturelle) 2 cap PO BID [facility] Last Admin: 11/01/16 08:54 Dose: 2 cap Lisinopril (Prinivil) 10 mg PO DAILY [facility] Last Admin: 11/01/16 08:54 Dose: 10 mg Morphine Sulfate (Morphine) 2 mg IVPUSH Q2H PRN PRN Reason: Pain Naloxone HCl (Narcan) 0.4 mg IVPUSH Q2M PRN PRN Reason: Respiratory Distress Ondansetron HCl (Zofran) 4 mg IV Q4H PRN PRN Reason: Nausea/Vomiting Last Admin: 10/29/16 05:26 Dose: 4 mg Oxycodone HCl (Oxycodone) 10 mg PO Q4H PRN PRN Reason: Pain Last Admin: 11/01/16 08:53 Dose: 10 mg Pantoprazole Sodium (Protonix) 40 mg PO ACBREAKFAST [facility] Last Admin: 11/01/16 07:11 Dose: 40 mg Quetiapine Fumarate (Seroquel) 25 mg PO BEDTIME [facility] Last Admin: 10/31/16 21:21 Dose: 25 mg Sodium Chloride (Saline Flush) 10 ml FLUSH ASDIRECTED PRN PRN Reason: Keep Vein Open Discontinued Medications Acetaminophen (Tylenol Extra Strength) 1,000 mg PO ONETIME ONE Stop: 10/29/16 05:52 Last Admin: 10/29/16 06:14 Dose: 1,000 mg Hydromorphone HCl (Dilaudid) 0.5 mg IVPUSH ONETIME ONE Stop: 10/28/16 09:04 Last Admin: 10/28/16 09:15 Dose: Not Given Sodium Chloride (Normal Saline) 1,000 mls @ 999 mls/hr IV ASDIRECTED [facility] Last Admin: 10/28/16 09:11 Dose: 999 mls/hr Sodium Chloride (Normal Saline) 100 mls @ 3 mls/sec IV ASDIRECTED [facility] Last Admin: 10/28/16 10:13 Dose: 3 mls/sec Sodium Chloride (Normal Saline) 1,000 mls @ 500 mls/hr IV ASDIRECTED [facility] Last Admin: 10/28/16 10:31 Dose: 500 mls/hr Ampicillin Sodium/Sulbactam (Sodium 1.5 gm/ Sodium Chloride) 50 mls @ 100 mls/ hr IV ONETIME ONE Stop: 10/28/16 12:29 Last Admin: 10/28/16 11:39 Dose: 100 mls/hr Sodium Chloride (Normal Saline) 500 mls @ 250 mls/hr IV .BOLUS [facility] Stop: 10/28/16 19:31 Last Admin: 10/28/16 17:45 Dose: 250 mls/hr Sodium Chloride (Normal Saline) 1,000 mls @ 125 mls/hr IV ASDIRECTED [facility] Last Admin: 10/30/16 00:31 Dose: 125 mls/hr Potassium Chloride 20 meq/Lidocaine HCl 2 ml/ Sodium Chloride 112 mls @ 56 mls/ hr IV Q2H [facility] Stop: 10/29/16 13:59 Last Admin: 10/29/16 14:23 Dose: 56 mls/hr Lactated Ringer's (Ringers, Lactated) Confirm Administered Dose 1,000 mls @ as directed .ROUTE .STK-MED ONE Stop: 10/29/16 10:00 Magnesium Sulfate 2 gm/ Premix 50 mls @ 25 mls/hr IV Q6H [facility] Stop: 10/30/16 23:59 Last Admin: 10/30/16 21:00 Dose: 25 mls/hr Iopamidol (Isovue-300 (61%)) 100 ml IV . DIRECTED [facility] Last Admin: 10/28/16 10:12 Dose: 100 ml Morphine Sulfate (Morphine) 2 mg IVPUSH ONETIME ONE Stop: 10/28/16 09:11 Last Admin: 10/28/16 09:20 Dose: 2 mg Morphine Sulfate (Morphine) 2 mg IVPUSH ONETIME ONE Stop: 10/28/16 10:27 Last Admin: 10/28/16 10:31 Dose: 2 mg Morphine Sulfate (Morphine) 2 mg IVPUSH ONETIME ONE Stop: 10/28/16 11:41 Last Admin: 10/28/16 11:41 Dose: 2 mg Morphine Sulfate (Morphine [employer] Maintenance Supervisor 150 Mg In 30 Ml) 0 mg IV ASDIRECTED PRN; Protocol PRN Reason: Pain Last Admin: 10/28/16 13:52 Dose: 2 mg Ondansetron HCl (Zofran) 4 mg IVPUSH ONETIME ONE Stop: 10/28/16 09:04 Last Admin: 10/28/16 09:13 Dose: 4 mg Pantoprazole Sodium (Protonix Iv) 40 mg IVPUSH Q24H [facility] Last Admin: 10/30/16 16:32 Dose: 40 mg Propofol (Diprivan 20 Ml) Confirm Administered Dose 200 mg .ROUTE .STK-MED ONE Stop: 10/29/16 08:31 Propofol (Diprivan 20 Ml) Confirm Administered Dose 200 mg .ROUTE .STK-MED ONE Stop: 10/29/16 09:58 *Q Meaningful Use (DIS) - VTE *Q VTE Criteria *Q: VTE Pharmacological Contraindications *Q: Active Hemorrhage - Stroke *Q Stroke Criteria *Q: - AMI *Q AMI Criteria *Q:
--- NOTE | 2016-11-03 08:09 | PN ---
DATE OF SERVICE: 10/28/2016 This is a 45-year-old admitted with lower abdominal pain and a small amount of rectal bleeding. She has had similar episodes in the past without a defined diagnosis. There were some thoughts that, in the recent past, she might have had a case of chronic diverticulitis. At any rate, CT scan showed a fairly long area of thickening and edema beginning in the proximal descending colon and extending down to the [id number] sigmoid colon, proximal distal. There appears to be no CT evidence of pathology. The plan at this point will be to proceed with a colonoscopy tomorrow morning. I think we need to get by with an enema preoperatively rather than a full colonoscopy prep. She has been started on antibiotics per Dr. Ness given her elevated white count and some degree of appearance of sepsis. Patrick Espinoza MD /[id number]
--- NOTE | 2016-11-03 08:12 | PN ---
DATE OF SERVICE: 11/01/2016 SUBJECTIVE: Jaida reports that she had pain during the night. She did take a Cowan, and that did relieve her pain. Pain was in the lower right abdominal quadrant. She has been afebrile. Last BM was 10/20/2016. Prior to that she had a flare-up of colitis with bloody stools. Temp max 97.8. Oral intake 1,140. Urine output not recorded. No emesis. REVIEW OF SYSTEM: HEENT: Negative. NECK: Negative. CHEST: No chest pain, shortness of breath, fast or irregular heartbeat. LUNGS: No cough. ABDOMEN: As above. : Negative. EXTREMITIES: Negative. NEURO: Negative for headache, dizziness, loss of coordination. PSYCHIATRIC: Negative. Remainder of review of systems negative for any pertinent positives and negatives. OBJECTIVE: GENERAL: Jaida Lofton is a 45-year-old female, alert, orientated. VITAL SIGNS: TPR is 96.7, 65, 18, blood pressure 141/103. It had been running 125-156/82- 90. HEENT: Negative. NECK: Supple. HEART: Regular rate and rhythm. LUNGS: Clear. ABDOMEN: Soft, tympanic tenderness in the right lower quadrant. EXTREMITIES: Without peripheral edema. ASSESSMENT: 1. Colitis, noninfective gastroenteritis. 2. Colonoscopy 10/29/2016. PLAN: 1. Regular diet. 2. Discharge per Marcell Ness MD, hospitalist. Manju Rodríguez PA-C /[id number]
--- NOTE | 2016-11-03 08:33 | PN ---
DATE OF SERVICE: 10/29/2016 The patient has been clinically stable overnight. The plan will be to proceed with the colonoscopy later this morning. She received enema preoperatively and based on the endoscopic findings, we will likely start some diet thereafter and then medical management continued per Dr. Ness, tailored by the endoscopic findings. Patrick Espinoza MD /[id number]
--- NOTE | 2016-11-07 14:24 | OR ---
DATE OF PROCEDURE: 10/29/2016 PREOPERATIVE DIAGNOSIS: Recent rectal bleeding and abdominal pain. POSTOPERATIVE DIAGNOSIS: Colitis extending from mid sigmoid colon to splenic flexure with a sparing of rectum and colon proximal to the splenic flexure. OPERATIVE PROCEDURE: Flexible colonoscopy with multiple biopsies from the splenic flexure and descending colon and sigmoid colon. ANESTHESIA: IV sedation. INDICATIONS FOR PROCEDURE: The patient presents with some ongoing severe abdominal pain. The CT scan was suggestive of an area of colitis on the left colon. Plan is to proceed with a flexible colonoscopy with biopsies and/or polypectomy. Potential risks including bleeding and perforation were discussed, and the patient wishes to proceed. DETAILS OF PROCEDURE: The patient was taken to the operating room and placed in a left lateral decubitus position. IV sedation was administered, after which the initial digital rectal exam was performed and was unremarkable. Colonoscope was then passed to the level of the cecum. The prep was at this point quite good. As one entered the rectum, retroflexion revealed uncomplicated hemorrhoidal columns. The scope was eventually passed up toward the mid sigmoid colon where an area of colitis began, continued up through the area of the splenic flexure. It was most intense in the splenic flexure and ascending colon areas and less so in the area of involved sigmoid colon. Proximal to the splenic flexure, the remainder of the exam was grossly entirely normal. There was no blood or bleeding seen. No stricturing identified. The areas of involvement were covered with some scattered fibrinous exudate consistent with some healing mucosal injury. Multiple biopsies were then obtained from the areas of involvement, sent for histologic evaluation. No bleeding from the biopsy sites was seen and the procedure was then concluded. The patient was taken to the recovery room in satisfactory condition. Patrick Espinoza MD /[id number]
== END 2016-11-01 13:45 | disposition home or self-care (01) | DRG 392 ==
LOC: JP.ED 08:29 → JP.ICU 11:29 → JP.MS 10-30 12:39
PROVIDERS: ADMIT Hospitalist; ATTEND Hospitalist
PROC: 0DBM8ZX Excision of Descending Colon, Via Natural or Artificial Opening Endoscopic, Diagnostic (ICD-10-PCS; principal; 2016-10-29)
PROC: 0DBN8ZX Excision of Sigmoid Colon, Via Natural or Artificial Opening Endoscopic, Diagnostic (ICD-10-PCS; principal; 2016-10-29)
PROC: 0DBL8ZX Excision of Transverse Colon, Via Natural or Artificial Opening Endoscopic, Diagnostic (ICD-10-PCS; principal; 2016-10-29)
DX: A09 Infectious gastroenteritis and colitis, unspecified (principal); K92.1 Melena; I10 Essential (primary) hypertension; Z87.891 Personal history of nicotine dependence; Z88.5 Allergy status to narcotic agent; Z88.8 Allergy status to other drugs, medicaments and biological substances
CPT/HCPCS: 36415; 74177; 74177-26; 80048; 80053; 81001; 83605; 83690; 83735; 85018; 85025; 87046; 87493; 87899; 88305; 89055; 94762; 96361; 96365; 96375; 96376; 99285-25; A9270-GY; C9113; J0287; J2270; J2405; J2704; J3475; J3480; J7030; J7040; J7050; J7120; Q9967

== ENCOUNTER 2017-01-27 00:15 | Observation (INO) | payer OTHER ==
[2017-01-27] MEDS ORDERED: Sodium Chloride 0.9% 10 ML Syringe FLUSH PRN (00:47)
[2017-01-27] MEDS ORDERED: Ondansetron 4 MG/2 ML SDV IVPUSH ONE (00:49)
[2017-01-27] MEDS ORDERED: Hyoscyamine 0.125 MG Tab.SL SL ONE (00:49)
--- NOTE | 2017-01-27 00:53 | EDM.PDOC ---
ED HPI GENERAL MEDICAL PROBLEM - General Chief Complaint: Gastrointestinal Problem Stated Complaint: ABD PAIN/BLEEDING Time Seen by Provider: 01/27/17 00:50 Source of Information: Reports: Patient, Family, Old Records, RN Notes Reviewed History Limitations: Reports: No Limitations - History of Present Illness INITIAL COMMENTS - FREE TEXT/NARRATIVE: 46-year-old female presents to the emergency department today with complaint of abdominal pain with explosive diarrhea, she had an event similar to this back in October was admitted the hospital for further evaluation underwent colonoscopy felt to be infectious colitis. She states she is the only one that ill has gone to the bathroom multiple times greater than 10 has had chills but no fevers is not describing any flank blood in her stool mostly water Lower ABD/back Pain Score (Numeric/FACES): 10 - Related Data Allergies Allergy/AdvReac Type Severity Reaction Status Date / Time ciprofloxacin Allergy Intermediate unknown Verified 01/27/17 00:26 hydromorphone [Hydromorphone] Allergy Intermediate Rash Verified 01/27/17 00:26 ketorolac Allergy abd pain Verified 01/27/17 00:26 Home Meds: Home Meds MV,Ca,Min/Iron Fum/FA/Vit K [Multi For Her Tablet] 1 tab PO DAILY 05/03/14 [ History] QUEtiapine [SEROquel] 25 mg PO DAILY 05/03/14 [History] Lisinopril/Hydrochlorothiazide [Zestoretic 10-12.5 mg Tablet] 1 each PO DAILY [History] atorvaSTATin [Lipitor] 10 mg PO BEDTIME 09/04/16 [History] Omeprazole 20 mg PO DAILY 10/15/16 [History] tiZANidine [Zanaflex] 4 mg PO Q8H PRN 10/15/16 [History] Lactobacillus Rhamnosus GG [Culturelle] 2 cap PO BID #60 cap 11/01/16 [Rx] Past Medical History Cardiovascular History: Reports: High Cholesterol, Hypertension Gastrointestinal History: Reports: Other (See Below) Other Gastrointestinal History: colitis 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: Reports: 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, Musculoskeletal History: Reports: Other (See Below) Other Musculoskeletal History: s/p cervical surgery - Infectious Disease History Infectious Disease History: Reports: Chicken Pox, Shingles - Past Surgical History HEENT Surgical History: Reports: Oral Surgery Other HEENT Surgeries/Procedures: wisdom teeth GI Surgical History: Reports: Appendectomy, Colonoscopy Female Surgical History: Reports: Hysterectomy Neurological Surgical History: Reports: C-Spine Social & Family History - Tobacco Use Smoking Status *Q: Never Smoker Years of Tobacco use: 36 Used Tobacco, but Quit: Yes Month Tobacco Last Used: 2014 Second Hand Smoke Exposure: No - Caffeine Use Caffeine Use: Reports: Coffee, Soda - Alcohol Use Days Per Week of Alcohol Use: 0 - Recreational Drug Use Recreational Drug Use: No ED ROS GENERAL - Review of Systems Review Of Systems: See Below Constitutional: Reports: Chills. Denies: Fever HEENT: Reports: No Symptoms Respiratory: Reports: No Symptoms Cardiovascular: Reports: No Symptoms GI/Abdominal: Reports: Abdominal Pain, Diarrhea, Nausea, Vomiting : Reports: No Symptoms Musculoskeletal: Reports: No Symptoms Skin: Reports: No Symptoms Neurological: Reports: No Symptoms ED EXAM, GI/ABD - Physical Exam Exam: See Below Text/Narrative:: General: Female, not in any distress, alert and oriented x3 HEENT: head is atraumatic normocephalic, eyes pupils equal round reactive to light, sclera clear no conjunctivitis appreciated. Ears tympanic membranes clear and alva landmarks and light reflex are present bilaterally canals are clear. Nose no septal deviation, nares are clear, no blood present. Mouth mucosa is moist and pink no erythema or exudate noted in soft palate, tongue is midline uvula is midline, dentition is intact. Neck: Supple no thyromegaly no tracheal deviation. Nodes: Cervical nodes subclavicular nodes nontender no palpable lymphadenopathy noted. Lungs: clear to auscultation bilaterally with symmetrical respirations, no adventitious noise appreciated. CV: Regular rate and rhythm S1 and S2 appreciated no murmurs rubs or gallops noted. Abdomen: Soft, generalized tenderness to palpation, no palpable masses or organomegaly appreciated, no distention no guarding bowel sounds are present, . Neuro: Cranial nerves II through XII grossly intact Skin: Warm and dry, intact Extremities: No lower extremity edema appreciated, Course - Vital Signs Last Recorded V/S: Last Vital Signs Temp 96.8 F 01/27/17 02:01 Pulse 102 H 01/27/17 02:01 Resp 15 01/27/17 02:01 BP 106/59 L 01/27/17 02:01 Pulse Ox 95 01/27/17 02:01 - Orders/Labs/Meds Orders: Active Orders 24 hr Category Date Time Status Peripheral IV Care [RC] . DIRECTED Care 01/27/17 00:47 Active CULTURE BLOOD [BC] Urgent Lab 01/27/17 02:36 Ordered CULTURE BLOOD [BC] Urgent Lab 01/27/17 02:36 Ordered CULTURE STOOL + SHIGATOX [RM] Stat Lab 01/27/17 02:49 Ordered Ampicillin/Sulbactam Na [Unasyn] 1.5 gm Med 01/27/17 02:42 Ordered Sodium Chloride 0.9% [Normal Saline] 50 ml IV ONETIME Lactated Ringers [Ringers, Lactated] 1,000 ml Med 01/27/17 01:00 Active IV ASDIRECTED Sodium Chloride 0.9% [Saline Flush] Med 01/27/17 00:47 Active 10 ml FLUSH ASDIRECTED PRN Blood Culture x2 Reflex Set [OM.PC] Urgent Oth 01/27/17 02:36 Ordered Peripheral IV Insertion Adult [OM.PC] Urgent Oth 01/27/17 00:47 Ordered Medication Orders Lactated Ringer's (Ringers, Lactated) 1,000 mls @ 999 mls/hr IV ASDIRECTED CATYH Last Admin: 01/27/17 00:58 Dose: 999 mls/hr Ampicillin Sodium/Sulbactam (Sodium 1.5 gm/ Sodium Chloride) 50 mls @ 100 mls/ hr IV ONETIME ONE Stop: 01/27/17 03:11 Sodium Chloride (Saline Flush) 10 ml FLUSH ASDIRECTED PRN PRN Reason: Keep Vein Open Last Admin: 01/27/17 01:00 Dose: 10 ml Labs: Laboratory Tests 01/27/17 01/27/17 01/27/17 Range/Units 00:50 00:50 00:50 WBC 19.7 H (4.5-11.0) K/uL RBC 4.43 (3.30-5.50) M/uL Hgb 13.1 D (12.0-15.0) g/dL Hct 38.3 (36.0-48.0) % MCV 87 (80-98) fL MCH 30 (27-31) pg MCHC 34 (32-36) % Plt Count 395 (150-400) K/uL Neut % (Auto) 87 H (36-66) % Lymph % (Auto) 4 L (24-44) % Josephine % (Auto) 8 H (2-6) % Eos % (Auto) 0 L (2-4) % Baso % (Auto) 0 (0-1) % Sodium 132 L (140-148) mmol/L Potassium 3.4 L (3.6-5.2) mmol/L Chloride 96 L (100-108) mmol/L Carbon Dioxide 24 (21-32) mmol/L Anion Gap 15.4 H (5.0-14.0) mmol/L BUN 15 D (7-18) mg/dL Creatinine 0.7 (0.6-1.0) mg/dL Est Cr Clr Drug Dosing 94.01 mL/min Estimated GFR (MDRD) > 60 (>60) Glucose 147 H (74-106) mg/dL Lactic Acid 1.1 (0.4-2.0) mmol/L Calcium 9.3 (8.5-10.1) mg/dL Total Bilirubin 0.4 (0.2-1.0) mg/dL AST 29 (15-37) U/L ALT 46 (12-78) U/L Alkaline Phosphatase 154 H (46-116) U/L Total Protein 7.7 (6.4-8.2) g/dL Albumin 4.2 (3.4-5.0) g/dL Globulin 3.5 (2.3-3.5) g/dL Albumin/Globulin Ratio 1.2 (1.2-2.2) Urine Color Urine Appearance Urine pH (4.5-8.0) Ur Specific [place] (1.008-1.030) Urine Protein (NEGATIVE) mg/dL Urine Glucose (UA) (NEGATIVE) mg/dL Urine Ketones (NEGATIVE) mg/dL Urine Occult Blood (NEGATIVE) Urine Nitrite (NEGATIVE) Urine Bilirubin (NEGATIVE) Urine Urobilinogen (NORMAL) mg/dL Ur Leukocyte Esterase (NEGATIVE) Urine RBC (0-5) Urine WBC (0-5) Ur Epithelial Cells Amorphous Sediment Urine Bacteria Urine Mucus 01/27/17 Range/Units 02:02 WBC (4.5-11.0) K/uL RBC (3.30-5.50) M/uL Hgb (12.0-15.0) g/dL Hct (36.0-48.0) % MCV (80-98) fL MCH (27-31) pg MCHC (32-36) % Plt Count (150-400) K/uL Neut % (Auto) (36-66) % Lymph % (Auto) (24-44) % Josephine % (Auto) (2-6) % Eos % (Auto) (2-4) % Baso % (Auto) (0-1) % Sodium (140-148) mmol/L Potassium (3.6-5.2) mmol/L Chloride (100-108) mmol/L Carbon Dioxide (21-32) mmol/L Anion Gap (5.0-14.0) mmol/L BUN (7-18) mg/dL Creatinine (0.6-1.0) mg/dL Est Cr Clr Drug Dosing mL/min Estimated GFR (MDRD) (>60) Glucose (74-106) mg/dL Lactic Acid (0.4-2.0) mmol/L Calcium (8.5-10.1) mg/dL Total Bilirubin (0.2-1.0) mg/dL AST (15-37) U/L ALT (12-78) U/L Alkaline Phosphatase (46-116) U/L Total Protein (6.4-8.2) g/dL Albumin (3.4-5.0) g/dL Globulin (2.3-3.5) g/dL Albumin/Globulin Ratio (1.2-2.2) Urine Color Yellow Urine Appearance Clear Urine pH 6.0 (4.5-8.0) Ur Specific [place] 1.015 (1.008-1.030) Urine Protein Negative (NEGATIVE) mg/dL Urine Glucose (UA) Normal (NEGATIVE) mg/dL Urine Ketones 15 H (NEGATIVE) mg/dL Urine Occult Blood Moderate (NEGATIVE) Urine Nitrite Negative (NEGATIVE) Urine Bilirubin Negative (NEGATIVE) Urine Urobilinogen Normal (NORMAL) mg/dL Ur Leukocyte Esterase Negative (NEGATIVE) Urine RBC 10-20 H (0-5) Urine WBC 0-5 (0-5) Ur Epithelial Cells Many Amorphous Sediment Not seen Urine Bacteria Not seen Urine Mucus Not seen Meds: Medications Generic Name Dose Route Start Last Admin Trade Name Freq PRN Reason Stop Dose Admin Lactated Ringer's 1,000 mls @ 999 mls/hr 01/27/17 01:00 01/27/17 00:58 Ringers, Lactated IV 999 mls/hr ASDIRECTED CATHY Administration Ampicillin Sodium/Sulbactam 50 mls @ 100 mls/hr 01/27/17 02:42 Sodium 1.5 gm/ Sodium Chloride IV 01/27/17 03:11 ONETIME ONE Sodium Chloride 10 ml 01/27/17 00:47 01/27/17 01:00 Saline Flush FLUSH 10 ml ASDIRECTED PRN Administration Keep Vein Open Discontinued Medications Generic Name Dose Route Start Last Admin Trade Name Freq PRN Reason Stop Dose Admin Fentanyl 100 mcg 01/27/17 02:43 01/27/17 02:49 Sublimaze IVPUSH 01/27/17 02:44 100 mcg ONETIME ONE Administration Hydromorphone HCl 1 mg 01/27/17 02:33 01/27/17 02:49 Dilaudid IVPUSH 01/27/17 02:34 Not Given ONETIME ONE Hyoscyamine 0.125 mg 01/27/17 00:49 01/27/17 00:58 Hyomax-Sl SL 01/27/17 00:50 0.125 mg ONETIME ONE Administration Ondansetron HCl 4 mg 01/27/17 00:49 01/27/17 01:00 Zofran IVPUSH 01/27/17 00:50 4 mg ONETIME ONE Administration Departure - Departure Time of Disposition: 02:51 Disposition: Admitted As Inpatient 66 Condition: Fair Clinical Impression: Infectious colitis - Discharge Information Referrals: Kati Pulliam CNM [Primary Care Provider] - Forms: ED Department Discharge - My Orders Last 24 Hours: My Active Orders 01/27/17 00:47 Peripheral IV Care [RC] . DIRECTED Sodium Chloride 0.9% [Saline Flush] 10 ml FLUSH ASDIRECTED PRN Peripheral IV Insertion Adult [OM.PC] Urgent 01/27/17 01:00 Lactated Ringers [Ringers, Lactated] 1,000 ml IV ASDIRECTED 01/27/17 02:36 CULTURE BLOOD [BC] Urgent CULTURE BLOOD [BC] Urgent Blood Culture x2 Reflex Set [OM.PC] Urgent 01/27/17 02:42 Ampicillin/Sulbactam Na [Unasyn] 1.5 gm Sodium Chloride 0.9% [Normal Saline] 50 ml IV ONETIME 01/27/17 02:49 CULTURE STOOL + SHIGATOX [RM] Stat - Assessment/Plan Last 24 Hours: My Active Orders 01/27/17 00:47 Peripheral IV Care [RC] . DIRECTED Sodium Chloride 0.9% [Saline Flush] 10 ml FLUSH ASDIRECTED PRN Peripheral IV Insertion Adult [OM.PC] Urgent 01/27/17 01:00 Lactated Ringers [Ringers, Lactated] 1,000 ml IV ASDIRECTED 01/27/17 02:36 CULTURE BLOOD [BC] Urgent CULTURE BLOOD [BC] Urgent Blood Culture x2 Reflex Set [OM.PC] Urgent 01/27/17 02:42 Ampicillin/Sulbactam Na [Unasyn] 1.5 gm Sodium Chloride 0.9% [Normal Saline] 50 ml IV ONETIME 01/27/17 02:49 CULTURE STOOL + SHIGATOX [RM] Stat Plan: Assessment Acuity = acute Site and laterality = diarrhea Etiology = probable infectious colitis of uncertain origin Manifestations = nausea, vomiting, generalized abdominal pain Location of injury = Home Lab values = WBC elevated at 19.1 consistent leukocytosis, sodium low at 132 consistent hyponatremia potassium low at 3.4 consistent hypokalemia lactic acid is normal 1.1 urinalysis reveals 15 ketones consistent ketonuria 10-20 rbc's consists with a hematuria stool is positive for blood as well as moderate amount of WBCs negative for Clostridium difficile culture is pending of both stool and blood Plan Called discussed case with Dr. Horner physician hotel controller he agreed to come and evaluate the patient in the hospital, she'll be admitted antibiotics of Unasyn initiated pain control with fentanyl This note was dictated using Si[employer] voice recognition software please call with any questions on syntax or vinayak.
[2017-01-27] MEDS ORDERED: Lactated Ringers 1,000 ML IV SCH ×2 (01:00→03:15)
[2017-01-27] MEDS: HYDROmorphone 1 MG/ML Syringe IVPUSH ONE ×2 (02:39→02:49)
[2017-01-27] MEDS ORDERED: Ampicillin/Sulbactam Na 1.5 GM in Sodium Chloride 0.9% 50 ML IV ONE (02:42)
[2017-01-27] MEDS ORDERED: fentaNYL 100 MCG/2 ML SDV IVPUSH ONE (02:43)
[2017-01-27] MEDS ORDERED: Ondansetron 4 MG/2 ML SDV IV PRN (02:53)
[2017-01-27] MEDS ORDERED: tiZANidine 4 MG Tab PO PRN (02:56)
[2017-01-27] MEDS ORDERED: Lactated Ringers 500 ML IV SCH (03:00)
[2017-01-27] MEDS: fentaNYL 100 MCG/2 ML SDV IVPUSH PRN ×6 (03:56→23:26)
[2017-01-27] MEDS: Ampicillin/Sulbactam Na 3 GM in Sodium Chloride 0.9% 100 ML IV SCH ×4 (08:30→19:42)
[2017-01-27] MEDS: Hydrochlorothiazide 12.5 MG Cap PO SCH ×2 (09:00→16:04)
[2017-01-27] MEDS: Lactobacillus Rhamnosus GG (Probiotic) Cap PO SCH ×3 (09:00→21:12)
[2017-01-27] MEDS: Multivitamins with Iron/Calcium/Folic Acid/Minerals Tab PO SCH ×2 (09:00→16:05)
[2017-01-27] MEDS: Lisinopril 10 MG Tab PO SCH ×2 (09:00→16:04)
[2017-01-27] MEDS: Pantoprazole 40 MG Tab.CR PO SCH ×2 (09:00→16:04)
[2017-01-27] MEDS ORDERED: QUEtiapine 25 MG Tab PO SCH (09:00)
[2017-01-27] MEDS ORDERED: Non-Formulary Medication 1 Each (Omeprazole [Omeprazole] 20 MG) PO SCH (09:00)
--- NOTE | 2017-01-27 17:01 | HP ---
HISTORY OF PRESENT ILLNESS: This is a 46-year-old who had some nausea with vomiting, abdominal pain, and diarrhea that she just could not handle at home any more. She was admitted for similar problems back a few months ago, where she was admitted and treated with IV Unasyn, IV fluids, and colonoscopy done. It looked like an infectious etiology at that time. It did improve. She started having trouble again and came into the emergency room where the emergency room physician started her on IV Unasyn, IV fluids, and fentanyl IV for pain which did help, and I was asked to admit the patient for further evaluation and treatment. PAST MEDICAL HISTORY: She had a similar episode about 3 months ago. ALLERGIES: CIPRO, HYDROMORPHONE, KETOROLAC. MEDICATIONS: Computer system is down. I do not have her current med list. FAMILY HISTORY: Father has some stomach problems, but no specific diagnosis of inflammatory bowel disease. SOCIAL HISTORY: Previous smoker, did quit. No significant alcohol use. REVIEW OF SYSTEMS: Denies headaches, vision changes, or upper respiratory symptoms. No chest pain or shortness of breath. She does have nausea and did throw up, diarrhea with blood, lower abdominal pain and cramping. Denies any swelling in her legs. No skin problems. No neurologic complaints reported. PHYSICAL EXAMINATION: HEENT: Pharynx: Slightly dry mucous membranes. NECK: Supple. No significant adenopathy. LUNGS: Clear. HEART: Regular without murmurs. ABDOMEN: Soft. She did have moderate discomfort in the lower abdomen. No distention. No mass or organomegaly palpated. Bowel sounds are actually a little bit less than expected. EXTREMITIES: No edema. SKIN: Negative. NEUROLOGIC: The patient is alert and oriented x3, but in some discomfort when I saw her. ASSESSMENT: Diarrhea with abdominal pain similar to what she had a few months ago. She will be admitted for IV fluids, pain medication. She has been started on Unasyn, which will continue every 6 hours. Transferred care to the hospitalist service. Roger Horner MD /[id number]
[2017-01-27] MEDS ORDERED: atorvaSTATin 10 MG Tab PO SCH (21:00)
[2017-01-27] MEDS ORDERED: QUEtiapine 100 MG Tab PO SCH (21:00)
[2017-01-27] MEDS: Lactated Ringers 1,000 ML IV SCH (21:16)
[2017-01-28] MEDS: Ampicillin/Sulbactam Na 3 GM in Sodium Chloride 0.9% 100 ML IV SCH ×2 (03:19→07:52)
[2017-01-28] MEDS: fentaNYL 100 MCG/2 ML SDV IVPUSH PRN ×2 (04:58→07:44)
[2017-01-28] MEDS: Pantoprazole 40 MG Tab.CR PO SCH (07:45)
[2017-01-28] MEDS: Lactated Ringers 1,000 ML IV SCH (07:52)
[2017-01-28] MEDS ORDERED: Acetaminophen 325 MG Tab PO PRN (08:48)
[2017-01-28] MEDS: Hydrochlorothiazide 12.5 MG Cap PO SCH (10:11)
[2017-01-28] MEDS: Lactobacillus Rhamnosus GG (Probiotic) Cap PO SCH (10:11)
[2017-01-28] MEDS: Lisinopril 10 MG Tab PO SCH (10:12)
[2017-01-28] MEDS: Multivitamins with Iron/Calcium/Folic Acid/Minerals Tab PO SCH (10:12)
[2017-01-28 11:30] VITALS: BP 136/92
[2017-01-28] MEDS ORDERED: oxyCODONE 5 MG Tab PO PRN (11:53)
--- NOTE | 2017-01-28 13:37 | PCM.DCSUM1 ---
Discharge Summary - Hospital Course Brief History: 46-year-old female with history of recent infectious colitis who presented with abdominal pain, diarrhea and hematochezia. She was admitted for further management with presumed recurrence. - Discharge Data Discharge Date: 01/28/17 Discharge Disposition: Home, Self-Care 01 Condition: Good - Discharge Diagnosis/Problem(s) (1) Infectious colitis SNOMED Code(s): 77850208 ICD Code: A09 - INFECTIOUS GASTROENTERITIS AND COLITIS, UNSPECIFIED Status : Acute (2) Hematochezia SNOMED Code(s): 700361596 ICD Code: K92.1 - MELENA Status: Acute - Patient Summary/Data Hospital Course: Jaida presented to the emergency room with abdominal pain, diarrhea and some hematochezia. Workup in the emergency room revealed leukocytosis and significant pain and some diarrhea but no evidence for fever or sepsis. Clostridium difficile testing was negative. She was admitted to the hospital and started on IV antibiotics with the assumption that this was a recurrence of her previous infectious colitis. Stool cultures were obtained shortly after admission. She was treated with IV fluids and pain medication and by later in the day she was feeling better. Her diet was advanced to clear liquids. Her stool cultures have returned normal. There were no fecal leukocytes seen. By the day of discharge she is tolerating a regular diet with only minimal residual generalized abdominal pain. She has not had any additional diarrhea, nausea or vomiting. At this point the exact cause for her bloody diarrhea is not entirely clear. She has not had any fevers. She got better very quickly with the antibiotics though differential would include a viral enteritis type picture. I doubt this represents inflammatory bowel disease since she has not received any steroid therapy and got better very quickly. She will be discharged home with 5 additional days of oral antibiotic therapy. She will follow-up if symptoms do not continue to get better or if they get worse. - Patient Instructions Diet: Regular Diet as Tolerated Diet, Other: soft and bland foods for the next few days Activity: As Tolerated Driving: Do Not Drive (if using pain pills) Showering/Bathing: May Shower Notify Provider of: Fever, Increased Pain, Nausea and/or Vomiting Other/Special Instructions: 1. You were in the hospital for management of probable infectious colitis with diarrhea, abdominal pain and blood in your stool. The exact cause for the infection was not entirely clear but you have been getting better with antibiotic therapy. I recommend 5 additional days of antibiotics with Augmentin taken twice daily. You should take this medication with food to avoid stomach upset. 2. You should continue your other medications as previously prescribed. 3. Please seek medical attention if you develop fever greater than 101, have severe abdominal pain, persistent vomiting or severe diarrhea. - Discharge Plan Prescriptions/Med Rec: Amoxicillin/Clavulanate K [Augmentin 875 MG] 1 tab PO BID #10 tablet oxyCODONE 5 mg PO Q4H PRN #10 tablet PRN Reason: Pain Home Medications: Home Meds MV,Ca,Min/Iron Fum/FA/Vit K [Multi For Her Tablet] 1 tab PO DAILY 05/03/14 [ History] QUEtiapine [SEROquel] 100 mg PO DAILY 05/03/14 [History] Lisinopril/Hydrochlorothiazide [Zestoretic 10-12.5 mg Tablet] 1 each PO DAILY [History] atorvaSTATin [Lipitor] 10 mg PO BEDTIME 09/04/16 [History] Omeprazole 20 mg PO DAILY 10/15/16 [History] tiZANidine [Zanaflex] 4 mg PO Q8H PRN 10/15/16 [History] Lactobacillus Rhamnosus GG [Culturelle] 2 cap PO BID #60 cap 11/01/16 [Rx] Amoxicillin/Clavulanate K [Augmentin 875 MG] 1 tab PO BID #10 tablet 01/28/17 [ Rx] oxyCODONE 5 mg PO Q4H PRN #10 tablet 01/28/17 [Rx] Patient Handouts: Diarrhea, Adult, Amoxicillin; Clavulanic Acid tablets Referrals: Kati Pulliam CNM [Primary Care Provider] - (follow-up with your symptoms do not continue to get better or if they get worse) - Discharge Summary/Plan Comment DC Time >30 min.: No (25) - Patient Data Vitals - Most Recent: Last Vital Signs Temp 36.2 C 01/28/17 11:28 Pulse 69 01/28/17 11:28 Resp 18 01/28/17 11:28 BP 136/92 H 01/28/17 11:28 Pulse Ox 99 01/28/17 11:28 Weight - Most Recent: 74.843 kg I&O - Last 24 hours: Intake & Output 01/27/17 01/28/17 01/28/17 22:59 06:59 14:59 Intake Total 3719 1023 700 Output Total 800 2000 Balance 2919 -975 614 Lab Results - Last 24 hrs: Laboratory Results - last 24 hr 01/27/17 01/27/17 01/28/17 Range/Units 05:11 05:11 05:45 WBC 12.0 H 6.6 (4.5-11.0) K/uL RBC 3.88 3.90 (3.30-5.50) M/uL Hgb 11.6 L 11.4 L (12.0-15.0) g/dL Hct 33.9 L 34.8 L (36.0-48.0) % MCV 87 89 (80-98) fL MCH 30 29 (27-31) pg MCHC 34 33 (32-36) % Plt Count 351 325 (150-400) K/uL Neut % (Auto) 72 H (36-66) % Lymph % (Auto) 17 L (24-44) % [place] % (Auto) 10 H (2-6) % Eos % (Auto) 1 L (2-4) % Baso % (Auto) 0 (0-1) % Sodium 136 L (140-148) mmol/L Potassium 4.1 (3.6-5.2) mmol/L Chloride 101 (100-108) mmol/L Carbon Dioxide 27 (21-32) mmol/L Anion Gap 7.4 (5.0-14.0) mmol/L BUN 11 (7-18) mg/dL Creatinine 0.7 (0.6-1.0) mg/dL Est Cr Clr Drug Dosing 94.01 mL/min Estimated GFR (MDRD) > 60 (>60) Glucose 119 H (74-106) mg/dL Calcium 9.0 (8.5-10.1) mg/dL 01/28/17 Range/Units 05:45 WBC (4.5-11.0) K/uL RBC (3.30-5.50) M/uL Hgb (12.0-15.0) g/dL Hct (36.0-48.0) % MCV (80-98) fL MCH (27-31) pg MCHC (32-36) % Plt Count (150-400) K/uL Neut % (Auto) (36-66) % Lymph % (Auto) (24-44) % [place] % (Auto) (2-6) % Eos % (Auto) (2-4) % Baso % (Auto) (0-1) % Sodium 142 (140-148) mmol/L Potassium 3.7 (3.6-5.2) mmol/L Chloride 105 (100-108) mmol/L Carbon Dioxide 29 (21-32) mmol/L Anion Gap 8.0 (5.0-14.0) mmol/L BUN 5 L D (7-18) mg/dL Creatinine 0.6 (0.6-1.0) mg/dL Est Cr Clr Drug Dosing 109.68 mL/min Estimated GFR (MDRD) > 60 (>60) Glucose 96 (74-106) mg/dL Calcium 9.0 (8.5-10.1) mg/dL Med Orders - Current: Current Medications Acetaminophen (Tylenol) 650 mg PO Q4H PRN PRN Reason: Pain/Fever Last Admin: 01/28/17 10:19 Dose: 650 mg Atorvastatin Calcium (Lipitor) 10 mg PO BEDTIME [facility] Last Admin: 01/27/17 21:13 Dose: 10 mg Hydrochlorothiazide (Hydrochlorothiazide) 12.5 mg PO DAILY [facility] Last Admin: 01/28/17 10:11 Dose: 12.5 mg Lactobacillus Rhamnosus (Culturelle) 2 cap PO BID [facility] Last Admin: 01/28/17 10:11 Dose: 2 cap Lisinopril (Prinivil) 10 mg PO DAILY [facility] Last Admin: 01/28/17 10:12 Dose: 10 mg Multivitamins/Minerals (Thera M Plus) 1 tab PO DAILY [facility] Last Admin: 01/28/17 10:12 Dose: 1 tab Ondansetron HCl (Zofran) 4 mg IV Q6H PRN PRN Reason: Nausea/Vomiting Oxycodone HCl (Oxycodone) 5 mg PO Q4H PRN PRN Reason: Pain Last Admin: 01/28/17 12:27 Dose: 5 mg Pantoprazole Sodium (Protonix) 40 mg PO ACBREAKFAST [facility] Last Admin: 01/28/17 07:45 Dose: 40 mg Quetiapine Fumarate (Seroquel) 100 mg PO BEDTIME CATHY Sodium Chloride (Saline Flush) 10 ml FLUSH ASDIRECTED PRN PRN Reason: Keep Vein Open Last Admin: 01/27/17 01:00 Dose: 10 ml Tizanidine HCl (Zanaflex) 4 mg PO Q8H PRN PRN Reason: muscle pain Discontinued Medications Fentanyl (Sublimaze) 100 mcg IVPUSH ONETIME ONE Stop: 01/27/17 02:44 Last Admin: 01/27/17 02:49 Dose: 100 mcg Fentanyl (Sublimaze) 50 mcg IVPUSH Q2H PRN PRN Reason: Pain (severe 7-10) Last Admin: 01/28/17 07:44 Dose: 50 mcg Hydromorphone HCl (Dilaudid) 1 mg IVPUSH ONETIME ONE Stop: 01/27/17 02:34 Last Admin: 01/27/17 02:49 Dose: Not Given Hyoscyamine (Hyomax-Sl) 0.125 mg SL ONETIME ONE Stop: 01/27/17 00:50 Last Admin: 01/27/17 00:58 Dose: 0.125 mg Lactated Ringer's (Ringers, Lactated) 1,000 mls @ 999 mls/hr IV ASDIRECTED [facility] Last Admin: 01/27/17 00:58 Dose: 999 mls/hr Ampicillin Sodium/Sulbactam (Sodium 1.5 gm/ Sodium Chloride) 50 mls @ 100 mls/ hr IV ONETIME ONE Stop: 01/27/17 03:11 Last Admin: 01/27/17 02:59 Dose: 100 mls/hr Lactated Ringer's (Ringers, Lactated) 500 mls @ 150 mls/hr IV .BOLUS CATHY Lactated Ringer's (Ringers, Lactated) 1,000 mls @ 150 mls/hr IV ASDIRECTED [facility] Last Admin: 01/27/17 03:36 Dose: 150 mls/hr Lactated Ringer's (Ringers, Lactated) 1,000 mls @ 100 mls/hr IV ASDIRECTED [facility] Last Admin: 01/28/17 07:52 Dose: 100 mls/hr Ampicillin Sodium/Sulbactam (Sodium 3 gm/ Sodium Chloride) 100 mls @ 200 mls/ hr IV Q6H CATHY Last Admin: 01/28/17 07:52 Dose: 200 mls/hr Ondansetron HCl (Zofran) 4 mg IVPUSH ONETIME ONE Stop: 01/27/17 00:50 Last Admin: 01/27/17 01:00 Dose: 4 mg Quetiapine Fumarate (Seroquel) 25 mg PO DAILY [facility] Last Admin: 01/27/17 16:05 Dose: Not Given Quetiapine Fumarate (Seroquel) 100 mg PO DAILY [facility] Last Admin: 01/27/17 21:13 Dose: 100 mg - Exam Quality Assessment: Denies: Supplemental Oxygen General: Reports: Alert, Oriented, Cooperative, No Acute Distress Neck: Reports: Supple Lungs: Reports: Normal Respiratory Effort GI/Abdominal Exam: No Distention Extremities: No Pedal Edema *Q Meaningful Use (DIS) - VTE *Q VTE Criteria *Q: - Stroke *Q Stroke Criteria *Q: - AMI *Q AMI Criteria *Q:
[2017-01-28] MEDS ORDERED: QUEtiapine 100 MG Tab PO SCH (21:00)
== END 2017-01-28 14:00 | disposition home or self-care (01) ==
LOC: JP.ED 00:15 → JP.MS 02:53
PROVIDERS: ADMIT Family Medicine; ATTEND Internal Medicine
DX: A09 Infectious gastroenteritis and colitis, unspecified (principal); K92.1 Melena; E78.00 Pure hypercholesterolemia, unspecified; I10 Essential (primary) hypertension; Z79.899 Other long term (current) drug therapy; Z88.1 Allergy status to other antibiotic agents; Z88.5 Allergy status to narcotic agent; Z88.8 Allergy status to other drugs, medicaments and biological substances; Z87.891 Personal history of nicotine dependence; Z90.49 Acquired absence of other specified parts of digestive tract; Z90.710 Acquired absence of both cervix and uterus
CPT/HCPCS: 36415; 80048; 80053; 81001; 82272; 83605; 85025; 85027; 87046; 87493; 87899; 89055; 96361; 96365; 96366; 96374; 96375; 96376; 99285; A9270; G0378; J0287; J0295; J2405; J3010; J7030; J7050; J7120; 87040; J1170

== ENCOUNTER 2017-02-16 11:17 | Emergency (ER) | payer OTHER, BC ==
[2017-02-16] MEDS ORDERED: methylPREDNISolone Sodium Succinate 125 MG/2 ML SDV IVPUSH ONE (11:45)
[2017-02-16] MEDS ORDERED: Sodium Chloride 0.9% 10 ML Syringe FLUSH PRN (11:45)
[2017-02-16] MEDS ORDERED: HYDROmorphone 0.5 MG/0.5 ML Syringe IVPUSH ONE (11:45)
[2017-02-16] MEDS ORDERED: Ampicillin/Sulbactam Na 1.5 GM in Sodium Chloride 0.9% 50 ML IV ONE ×2 (11:58→12:15)
--- NOTE | 2017-02-16 11:59 | EDM.PDOC ---
ED HPI GENERAL MEDICAL PROBLEM - General Chief Complaint: Abdominal Pain Stated Complaint: VOMITING,DIARRHEA Time Seen by Provider: 02/16/17 11:30 Source of Information: Reports: Patient, Family History Limitations: Reports: No Limitations - History of Present Illness INITIAL COMMENTS - FREE TEXT/NARRATIVE: 46-year-old female with lower abdominal pain since last evening. It is a very typical pattern that she has had twice in the last 6 months where she has developed colitis. I did review the biopsy reports and the treatments and it is unlikely it's an inflammatory chronic condition, and she does have a GI consult coming up next week. She would like to avoid going into the hospital. On her last hospitalization her symptoms resolved rapidly. No fevers or chills, she vomited once. Pain is in the lower abdomen, crampy in nature and she's developed some bloody diarrhea. Onset: Sudden Location: Reports: Abdomen Severity: Moderate Associated Symptoms: Reports: Malaise, Nausea/Vomiting. Denies: Fever/Chills, Headaches, Shortness of Breath Lower Abdominal Pain Score (Numeric/FACES): 10 - Related Data Allergies Allergy/AdvReac Type Severity Reaction Status Date / Time ciprofloxacin Allergy Intermediate unknown Verified 02/16/17 11:25 hydromorphone [Hydromorphone] Allergy Intermediate Rash Verified 02/16/17 11:25 ketorolac Allergy abd pain Verified 02/16/17 11:25 Home Meds: Home Meds MV,Ca,Min/Iron Fum/FA/Vit K [Multi For Her Tablet] 1 tab PO DAILY 05/03/14 [ History] QUEtiapine [SEROquel] 100 mg PO DAILY 05/03/14 [History] Lisinopril/Hydrochlorothiazide [Zestoretic 10-12.5 mg Tablet] 1 each PO DAILY [History] atorvaSTATin [Lipitor] 10 mg PO BEDTIME 09/04/16 [History] Omeprazole 20 mg PO DAILY 10/15/16 [History] tiZANidine [Zanaflex] 4 mg PO Q8H PRN 10/15/16 [History] Lactobacillus Rhamnosus GG [Culturelle] 2 cap PO BID #60 cap 11/01/16 [Rx] Amoxicillin/Clavulanate K [Augmentin 875 MG] 1 tab PO BID #10 tablet 01/28/17 [ Rx] oxyCODONE 5 mg PO Q4H PRN #10 tablet 01/28/17 [Rx] Past Medical History Cardiovascular History: Reports: High Cholesterol, Hypertension Gastrointestinal History: Reports: Other (See Below) Other Gastrointestinal History: colitis PLAN MANAGER History: Reports: 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, Musculoskeletal History: Reports: Other (See Below) Other Musculoskeletal History: s/p cervical surgery - Infectious Disease History Infectious Disease History: Reports: Chicken Pox, Shingles - Past Surgical History HEENT Surgical History: Reports: Oral Surgery Other HEENT Surgeries/Procedures: wisdom teeth GI Surgical History: Reports: Appendectomy, Colonoscopy Other GI Surgeries/Procedures: HX OF COLITIS Female Surgical History: Reports: Hysterectomy Neurological Surgical History: Reports: C-Spine Social & Family History - Tobacco Use Smoking Status *Q: Unknown Ever Smoked Years of Tobacco use: 36 Used Tobacco, but Quit: No Month Tobacco Last Used: 2014 Second Hand Smoke Exposure: No - Caffeine Use Caffeine Use: Reports: Coffee, Soda - Alcohol Use Days Per Week of Alcohol Use: 0 - Recreational Drug Use Recreational Drug Use: No ED ROS GENERAL - Review of Systems Review Of Systems: See Below Constitutional: Reports: Chills, Malaise. Denies: Fever HEENT: Reports: No Symptoms Respiratory: Denies: Shortness of Breath Cardiovascular: Denies: Chest Pain GI/Abdominal: Reports: Abdominal Pain, Diarrhea, Hematochezia, Nausea, Vomiting : Reports: No Symptoms Skin: Reports: No Symptoms Neurological: Denies: Headache ED EXAM, GI/ABD - Physical Exam Exam: See Below Exam Limited By: No Limitations General Appearance: Alert, Mild Distress (Fairly uncomfortable) Eyes: Bilateral: Normal Appearance Respiratory/Chest: No Respiratory Distress, Lungs Clear Cardiovascular: Regular Rate, Rhythm GI/Abdominal Exam: Normal Bowel Sounds, Tender (Patient is very tender with mild to moderate guarding across the suprapubic area) Course - Vital Signs Last Recorded V/S: Last Vital Signs Temp 98.3 F 02/16/17 13:21 Pulse 93 02/16/17 13:21 Resp 14 02/16/17 13:21 BP 117/86 02/16/17 13:21 Pulse Ox 100 02/16/17 13:21 - Orders/Labs/Meds Orders: Active Orders 24 hr Category Date Time Status Saline Lock Insert [OM.PC] Routine Oth 02/16/17 11:45 Ordered Meds: Medications Discontinued Medications Generic Name Dose Route Start Last Admin Trade Name Sangeeta PRN Reason Stop Dose Admin Fentanyl 25 mcg 02/16/17 12:12 02/16/17 12:28 Sublimaze IVPUSH 02/16/17 12:13 25 mcg ONETIME ONE Administration Ampicillin Sodium/Sulbactam 50 mls @ 100 mls/hr 02/16/17 12:15 02/16/17 12:29 Sodium 1.5 gm/ Sodium Chloride IV 02/16/17 12:44 100 mls/hr ONETIME ONE Administration Methylprednisolone Sodium Succinate 125 mg 02/16/17 11:45 02/16/17 12:28 Solu-Medrol IVPUSH 02/16/17 11:46 125 mg ONETIME ONE Administration Sodium Chloride 10 ml 02/16/17 11:45 02/16/17 12:27 Saline Flush FLUSH 10 ml ASDIRECTED PRN Administration Keep Vein Open - Re-Assessments/Exams Free Text/Narrative Re-Assessment/Exam: 02/16/17 11:57 An IV was started, patient was given 0.5 mg of Dilaudid and 125 mg of Solu- Medrol. 02/16/17 11:58 Patient was also given 1.5 mg of Unasyn IV. Intention is to keep her out of the hospital and putting her on oral Augmentin, pain control, and 2 or 3 days worth of prednisone. 02/16/17 12:56 Patient responded extremely well to the initial IV medications. She was discharged on 50 mg of prednisone daily for the next 2-3 days, Augmentin twice a day for 5 days and 6 Vicodin for extra pain control. She'll return if worsening, otherwise advance diet as tolerated and follow up with gastroenterology next week as scheduled. Departure - Departure Time of Disposition: 13:24 Disposition: Home, Self-Care 01 Condition: Good Clinical Impression: Inflammation of large intestine Abdominal pain Qualifiers: Abdominal location: lower abdomen, unspecified Qualified Code(s): R10.30 - Lower abdominal pain, unspecified - Discharge Information Instructions: Abdominal Pain, Adult, [id number] Referrals: PCP,None [Primary Care Provider] - Forms: ED Department Discharge Care Plan Goals: Rest, fluids, and advance diet as tolerated. Take 50 mg or 5 pills of prednisone with your first meal for 2-3 days starting tomorrow morning. Start antibiotic twice daily for 5 days with your evening meal tonight. Use pain medicines if needed. Return if worsening, or follow-up with gastroenterology as scheduled. - My Orders Last 24 Hours: My Active Orders 02/16/17 11:45 Saline Lock Insert [OM.PC] Routine - Assessment/Plan Last 24 Hours: My Active Orders 02/16/17 11:45 Saline Lock Insert [OM.PC] Routine
[2017-02-16] MEDS ORDERED: fentaNYL 100 MCG/2 ML SDV IVPUSH ONE (12:12)
[2017-02-16 13:22] VITALS: BP 117/86
== END 2017-02-16 13:24 | disposition home or self-care (01) ==
LOC: JP.ED 11:17
DX: K52.9 Noninfective gastroenteritis and colitis, unspecified (principal); Z79.899 Other long term (current) drug therapy; Z88.1 Allergy status to other antibiotic agents; Z88.5 Allergy status to narcotic agent; Z88.6 Allergy status to analgesic agent
CPT/HCPCS: 96365; 96375; 99284; J0287; J2930; J3010; J7050

== ENCOUNTER 2017-09-30 08:47 | Observation (INO) | payer OTHER ==
[2017-09-30] MEDS ORDERED: Lactated Ringers 1,000 ML IV ONE (09:22)
[2017-09-30] MEDS ORDERED: fentaNYL 100 MCG/2 ML SDV IVPUSH ONE ×3 (09:28→11:36)
[2017-09-30] MEDS ORDERED: Metoclopramide 10 MG/2 ML SDV IVPUSH ONE (09:28)
--- NOTE | 2017-09-30 09:34 | EDM.PDOC ---
ED HPI GENERAL MEDICAL PROBLEM - General Chief Complaint: Abdominal Pain Stated Complaint: BLOOD IN THE STOOL Time Seen by Provider: 09/30/17 09:20 Source of Information: Reports: Patient, Old Records History Limitations: Reports: No Limitations - History of Present Illness INITIAL COMMENTS - FREE TEXT/NARRATIVE: 46 yo female presents with abdominal cramping and bloody diarrhea since last night. Attributes her sx's to the amoxicillin she is taking per her dentist for a tooth. Has a hx of diverticulosis, but not diverticulitis. No recent fevers. Does have nausea and vomiting, but no hematemesis. Has been hospitalized in the past for colitis and says this feels similarly. Is mildly light-headed with standing. Has a camera technician in [place] for her colitis, but she did not try to contact that provider today. No self tx. Onset: Gradual Onset Date: 09/29/17 Onset Time: 21:00 Duration: Hour(s):, Constant Location: Reports: Abdomen Quality: Reports: Other (cramping) Severity: Moderate Improves with: Reports: None Worsens with: Reports: None Context: Reports: Other (Hx of colitis) Associated Symptoms: Reports: Nausea/Vomiting. 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 DEPENDENCY NURSE: Reports: Other (see below) (none) Lower Back Pain Score (Numeric/FACES): 10 - Related Data Allergies Allergy/AdvReac Type Severity Reaction Status Date / Time ciprofloxacin Allergy Intermediate unknown Verified 02/16/17 11:25 hydromorphone [Hydromorphone] Allergy Intermediate Rash Verified 02/16/17 11:25 ketorolac Allergy abd pain Verified 02/16/17 11:25 Home Meds: Home Meds MV,Ca,Min/Iron Fum/FA/Vit K [Multi For Her Tablet] 1 tab PO DAILY 05/03/14 [ History] QUEtiapine [SEROquel] 100 mg PO DAILY 05/03/14 [History] Lisinopril/Hydrochlorothiazide [Zestoretic 10-12.5 mg Tablet] 1 each PO DAILY [History] atorvaSTATin [Lipitor] 10 mg PO BEDTIME 09/04/16 [History] Omeprazole 20 mg PO DAILY 10/15/16 [History] Past Medical History Cardiovascular History: Reports: Hypertension Gastrointestinal History: Reports: Other (See Below) Other Gastrointestinal History: colitis MANAGER TALENT History: Reports: 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, Musculoskeletal History: Reports: Other (See Below) Other Musculoskeletal History: s/p cervical surgery - Infectious Disease History Infectious Disease History: Reports: Chicken Pox, Shingles - Past Surgical History HEENT Surgical History: Reports: Oral Surgery Other HEENT Surgeries/Procedures: wisdom teeth Other GI Surgeries/Procedures: HX OF COLITIS Female Surgical History: Reports: Hysterectomy Neurological Surgical History: Reports: C-Spine Social & Family History - Tobacco Use Smoking Status *Q: Former Smoker Used Tobacco, but Quit: Yes Month/Year Tobacco Last Used: 02/2014 Second Hand Smoke Exposure: No - Caffeine Use Caffeine Use: Reports: Coffee - Recreational Drug Use Recreational Drug Use: No ED ROS GENERAL - Review of Systems Review Of Systems: See Below Constitutional: Reports: No Symptoms HEENT: Reports: No Symptoms Respiratory: Reports: No Symptoms Cardiovascular: Reports: Lightheadedness (with standing only) Endocrine: Reports: No Symptoms GI/Abdominal: Reports: Abdominal Pain, Bloody Stool, Diarrhea, Nausea, Vomiting. Denies: Black Stool, Constipation, Hematemesis : Reports: No Symptoms Musculoskeletal: Reports: No Symptoms Skin: Reports: No Symptoms Neurological: Reports: No Symptoms ED EXAM, GI/ABD - Physical Exam Exam: See Below Exam Limited By: No Limitations General Appearance: Alert, WD/WN, No Apparent Distress Eyes: Bilateral: Normal Appearance Ears: Normal External Exam, Normal Canal, Hearing Grossly Normal Nose: Normal Inspection, Normal Mucosa, No Blood Throat/Mouth: Normal Inspection, Normal Lips, Normal Oropharynx, Normal Voice, No Airway Compromise Head: Atraumatic, Normocephalic Neck: Normal Inspection, Supple Respiratory/Chest: No Respiratory Distress, Lungs Clear, Normal Breath Sounds, No Accessory Muscle Use Cardiovascular: Regular Rate, Rhythm, No Edema GI/Abdominal Exam: Soft, No Distention, Tender (mild, diffuse), Abnormal Bowel Sounds (increased slightly.). No: Guarding, Rigid, Rebound, Hernia Back Exam: Normal Inspection. No: CVA Tenderness (R), CVA Tenderness (L) Extremities: Normal Inspection, Normal Range of Motion, Non-Tender, No Pedal Edema Neurological: Alert, Oriented, CN II-XII Intact, Normal Cognition, No Motor/ Sensory Deficits Psychiatric: Normal Affect, Normal Mood Skin Exam: Warm, Dry, Intact, Normal Color, No Rash Lymphatic: No Adenopathy Course - Vital Signs Last Recorded V/S: Last Vital Signs Temp 35.4 C 09/30/17 11:11 Pulse 95 09/30/17 11:11 Resp 18 09/30/17 11:11 BP 108/71 09/30/17 11:11 Pulse Ox - Orders/Labs/Meds Orders: Active Orders 24 hr Category Date Time Status CLOSTRIDIUM DIFFICILE BY PCR [] Stat Lab 09/30/17 09:23 Ordered CULTURE STOOL + SHIGATOX [] Stat Lab 09/30/17 09:23 Ordered Iopamidol [Isovue-300 (61%)] Med 09/30/17 10:45 Active 100 ml IV . DIRECTED Sodium Chloride 0.9% [Normal Saline] 1,000 ml Med 09/30/17 10:45 Active IV ASDIRECTED Medication Orders Sodium Chloride (Normal Saline) 1,000 mls @ 200 mls/hr IV ASDIRECTED CATHY Last Admin: 09/30/17 10:52 Dose: 200 mls/hr Iopamidol (Isovue-300 (61%)) 100 ml IV . DIRECTED CATHY Last Admin: 09/30/17 11:21 Dose: 100 ml Labs: Laboratory Tests 09/30/17 09/30/17 Range/Units 09:39 09:39 WBC 16.8 H (4.5-11.0) K/uL RBC 4.36 (3.30-5.50) M/uL Hgb 13.1 (12.0-15.0) g/dL Hct 37.9 (36.0-48.0) % MCV 87 (80-98) fL MCH 30 (27-31) pg MCHC 35 (32-36) % Plt Count 343 (150-400) K/uL Sodium 133 L (140-148) mmol/L Potassium 4.2 (3.6-5.2) mmol/L Chloride 98 L (100-108) mmol/L Carbon Dioxide 28 (21-32) mmol/L Anion Gap 11.2 (5.0-14.0) mmol/L BUN 13 D (7-18) mg/dL Creatinine 0.7 (0.6-1.0) mg/dL Est Cr Clr Drug Dosing 93.06 mL/min Estimated GFR (MDRD) > 60 (>60) Glucose 115 H (74-106) mg/dL Calcium 9.4 (8.5-10.1) mg/dL Meds: Medications Generic Name Dose Route Start Last Admin Trade Name Sangeeta PRN Reason Stop Dose Admin Sodium Chloride 1,000 mls @ 200 mls/hr 09/30/17 10:45 09/30/17 10:52 Normal Saline IV 200 mls/hr ASDIRECTED CATHY Administration Iopamidol 100 ml 09/30/17 10:45 09/30/17 11:21 Isovue-300 (61%) IV 100 ml . DIRECTED CATHY Administration Discontinued Medications Generic Name Dose Route Start Last Admin Trade Name Sangeeta PRN Reason Stop Dose Admin Fentanyl 100 mcg 09/30/17 09:28 09/30/17 09:42 Sublimaze IVPUSH 09/30/17 09:29 100 mcg ONETIME ONE Administration Fentanyl 50 mcg 09/30/17 10:42 09/30/17 10:53 Sublimaze IVPUSH 09/30/17 10:43 50 mcg ONETIME ONE Administration Fentanyl 100 mcg 09/30/17 11:36 09/30/17 11:39 Sublimaze IVPUSH 09/30/17 11:37 100 mcg ONETIME ONE Administration Lactated Ringer's 1,000 mls @ 1,000 mls/hr 09/30/17 09:22 09/30/17 09:38 Ringers, Lactated IV 09/30/17 10:21 1,000 mls/hr BOLUS ONE Administration Ciprofloxacin/Dextrose 400 mg/ 200 mls @ 200 mls/hr 09/30/17 10:35 09/30/17 11:32 Premix IV 09/30/17 11:34 Not Given ONETIME ONE Metronidazole 500 mg/ Premix 100 mls @ 100 mls/hr 09/30/17 10:35 09/30/17 10: 57 IV 09/30/17 11:34 100 mls/hr ONETIME ONE Administration Sodium Chloride 80 mls @ 3.5 mls/sec 09/30/17 10:42 09/30/17 11:23 Normal Saline IV 09/30/17 10:43 3 mls/sec ONETIME ONE Administration Metoclopramide HCl 10 mg 09/30/17 09:28 09/30/17 09:41 Reglan IVPUSH 09/30/17 09:29 10 mg ONETIME ONE Administration Sodium Chloride 10 ml 09/30/17 10:42 09/30/17 11:23 Saline Flush FLUSH 09/30/17 10:43 10 ml ONETIME ONE Administration - Radiology Interpretation Free Text/Narrative:: CT abd/pelvis with IV contrast-diffuse mucosal thickening of left and transverse colon CT Results Date: 09/30/17 CT Results Time: 12:15 Departure - Departure Time of Disposition: 12:25 Disposition: Admitted As Inpatient 66 Condition: Fair Clinical Impression: Colitis, Rectal bleeding - Discharge Information *PRESCRIPTION DRUG MONITORING PROGRAM REVIEWED*: Not Applicable *COPY OF PRESCRIPTION DRUG MONITORING REPORT IN PATIENT CAIN: Not Applicable Referrals: Kati Pulliam CNM [Primary Care Provider] - Forms: ED Department Discharge - My Orders Last 24 Hours: My Active Orders 09/30/17 09:23 CLOSTRIDIUM DIFFICILE BY PCR [RM] Stat CULTURE STOOL + SHIGATOX [RM] Stat 09/30/17 10:45 Iopamidol [Isovue-300 (61%)] 100 ml IV . DIRECTED Sodium Chloride 0.9% [Normal Saline] 1,000 ml IV ASDIRECTED - Assessment/Plan Last 24 Hours: My Active Orders 09/30/17 09:23 CLOSTRIDIUM DIFFICILE BY PCR [RM] Stat CULTURE STOOL + SHIGATOX [RM] Stat 09/30/17 10:45 Iopamidol [Isovue-300 (61%)] 100 ml IV . DIRECTED Sodium Chloride 0.9% [Normal Saline] 1,000 ml IV ASDIRECTED
[2017-09-30] MEDS ORDERED: metroNIDAZOLE/Normal Saline 500 MG in Premix Bag 1 BAG IV ONE (10:35)
[2017-09-30] MEDS ORDERED: Ciprofloxacin in D5W 400 MG in Premix Bag 1 BAG IV ONE ×2 (10:35)
[2017-09-30] MEDS ORDERED: Sodium Chloride 0.9% 80 ML IV ONE (10:42)
[2017-09-30] MEDS ORDERED: Sodium Chloride 0.9% 1,000 ML IV SCH (10:45)
[2017-09-30] MEDS ORDERED: Iopamidol 612 MG/ML 100 ML Bottle IV SCH (10:45)
[2017-09-30] MEDS: Sodium Chloride 0.9% 10 ML Syringe FLUSH ONE ×2 (11:05→11:23)
--- NOTE | 2017-09-30 11:47 | CT ---
Abdomen Pelvis w Cont CLINICAL HISTORY: Abdominal pain, bloody stools COMPARISON: October 2016. TECHNIQUE: Axial tomographic images are obtained from the dome of the diaphragm to the pubic symphysi s without IV contrast enhancement. No oral contrast was used. Auto dosage reduction and iterative rec onstruction techniques employed. FINDINGS: The lung bases are clear. The liver shows no mass or biliary dilatation. The gallbladder reed s a normal appearance. The spleen has a normal size and shape. The pancreas shows no mass or inflamma tory change. The adrenal glands appear normal bilaterally. The kidneys are free of mass, stones or hy dronephrosis. The aorta has some atheromatous calcification without aneurysm. Abdominal pelvic fat pl anes and low pelvic side bocanegra are clear. There is some generalized mucosal thickening involving the left and transverse colon. There is some mild mucosal enhancement. The appendix is not definitively i dentified. There is some radiopacity near the cecal tip which may be from previous surgery. There is no suspicious retroperitoneal adenopathy. IMPRESSION: Mild diffuse mucosal thickening in the left and transverse colon suggests apparent coliti s No mass or obstruction
--- NOTE | 2017-09-30 13:16 | PCM.HP ---
H&P History of Present Illness - General Date of Service: 09/30/17 Admit Problem/Dx: Admission Diagnosis/Problem Admission Diagnosis/Problem Colitis presumed to be due to infection Source of Information: Patient, Old Records, Provider, RN Notes Reviewed History Limitations: Reports: No Limitations - History of Present Illness Initial Comments - Free Text/Narative: Ms. Lofton is a 46-year-old woman who was admitted through the emergency department to observation status for further evaluation and management of colitis with bloody diarrhea and abdominal pain. She had a previous episode of this occurring approximately 11 months ago, with very similar symptoms and findings. She was hospitalized overnight in January 2017 with similar symptoms that resolved quickly. She's been on antibiotic therapy over the past 2 weeks for management of a dental infection. Otherwise she's been feeling well until yesterday when she developed acute onset of cramping abdominal pain associated with bloody diarrhea. On evaluation in the emergency department today she is found to have an elevated white blood cell count, CT scan shows evidence of inflammation in the left transverse colon extending into the sigmoid colon. Lower Back Pain Score (Numeric/FACES): 10 - Related Data Allergies/Adverse Reactions: Allergies Allergy/AdvReac Type Severity Reaction Status Date / Time ciprofloxacin Allergy Intermediate unknown Verified 02/16/17 11:25 hydromorphone [Hydromorphone] Allergy Intermediate Rash Verified 02/16/17 11:25 ketorolac Allergy abd pain Verified 02/16/17 11:25 Home Medications: Home Meds MV,Ca,Min/Iron Fum/FA/Vit K [Multi For Her Tablet] 1 tab PO DAILY 05/03/14 [ History] QUEtiapine [SEROquel] 100 mg PO DAILY 05/03/14 [History] Lisinopril/Hydrochlorothiazide [Zestoretic 10-12.5 mg Tablet] 1 each PO DAILY [History] atorvaSTATin [Lipitor] 10 mg PO BEDTIME 09/04/16 [History] Omeprazole 20 mg PO DAILY 10/15/16 [History] Past Medical History Cardiovascular History: Reports: Hypertension Gastrointestinal History: Reports: Other (See Below) Other Gastrointestinal History: colitis 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: Reports: 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, Musculoskeletal History: Reports: Other (See Below) Other Musculoskeletal History: s/p cervical surgery - Infectious Disease History Infectious Disease History: Reports: Chicken Pox, Shingles - Past Surgical History HEENT Surgical History: Reports: Oral Surgery Other HEENT Surgeries/Procedures: wisdom teeth Other GI Surgeries/Procedures: HX OF COLITIS Female Surgical History: Reports: Hysterectomy Neurological Surgical History: Reports: C-Spine Social & Family History - Tobacco Use Smoking Status *Q: Former Smoker Used Tobacco, but Quit: Yes Month/Year Tobacco Last Used: 02/2014 Second Hand Smoke Exposure: No - Caffeine Use Caffeine Use: Reports: Coffee - Recreational Drug Use Recreational Drug Use: No H&P Review of Systems - Review of Systems: Review Of Systems: See Below General: Reports: Fever, Chills, Weakness HEENT: Reports: No Symptoms Pulmonary: Reports: No Symptoms Cardiovascular: Reports: No Symptoms Gastrointestinal: Reports: Abdominal Pain, Bloody Stool, Diarrhea, Decreased Appetite, Nausea. Denies: Constipation, Difficulty Swallowing, Distension, Vomiting Genitourinary: Reports: No Symptoms Musculoskeletal: Reports: No Symptoms Skin: Reports: No Symptoms Psychiatric: Reports: No Symptoms Neurological: Reports: No Symptoms Hematologic/Lymphatic: Reports: No Symptoms Immunologic: Reports: No Symptoms Exam - Exam Exam: See Below - Vital Signs Vital Signs: Last Vital Signs Temp 95.8 F 09/30/17 11:11 Pulse 95 09/30/17 11:11 Resp 18 09/30/17 11:11 BP 108/71 09/30/17 11:11 Pulse Ox Weight: 129 lb 6.581 oz - Exam General: Alert, Oriented, Cooperative, Moderate Distress HEENT: Conjunctiva Clear, Hearing Intact, Mucosa Moist & [place], Normal Nasal Septum, Posterior Pharynx Clear, Pupils Equal Neck: Supple, Trachea Midline, +2 Carotid Pulse wo Bruit Lungs: Clear to Auscultation, Normal Respiratory Effort Cardiovascular: Regular Rate, Regular Rhythm, Normal S1, Normal S2. No: Systolic Murmur, Diastolic Murmur GI/Abdominal Exam: Soft, No Organomegaly, Tender. No: Distended, Guarding, Rigid, Rebound Back Exam: Normal Inspection, Full Range of Motion Extremities: Non-Tender, No Pedal Edema Skin: Warm, Dry, Intact Neurological: Cranial Nerves Intact, Strength Equal Bilateral, Normal Speech, Normal Tone, Sensation Intact. No: Focal Deficit Neuro Extensive - Mental Status: Alert, Oriented x3, Normal Mood/Affect, Normal Cognition, Memory Intact - Patient Data Lab Results Last 24 hrs: Laboratory Results - last 24 hr 09/30/17 09/30/17 Range/Units 09:39 09:39 WBC 16.8 H (4.5-11.0) K/uL RBC 4.36 (3.30-5.50) M/uL Hgb 13.1 (12.0-15.0) g/dL Hct 37.9 (36.0-48.0) % MCV 87 (80-98) fL MCH 30 (27-31) pg MCHC 35 (32-36) % Plt Count 343 (150-400) K/uL Sodium 133 L (140-148) mmol/L Potassium 4.2 (3.6-5.2) mmol/L Chloride 98 L (100-108) mmol/L Carbon Dioxide 28 (21-32) mmol/L Anion Gap 11.2 (5.0-14.0) mmol/L BUN 13 D (7-18) mg/dL Creatinine 0.7 (0.6-1.0) mg/dL Est Cr Clr Drug Dosing 93.06 mL/min Estimated GFR (MDRD) > 60 (>60) Glucose 115 H (74-106) mg/dL Calcium 9.4 (8.5-10.1) mg/dL Result Diagrams: 09/30/17 09:39 09/30/17 09:39 *Q Meaningful Use (ADM) - VTE Risk Assess *Q Each Risk Factor Represents 1 Point: Age 41 - 59 years Total Score 1 Point Risk Factors: 1 Each Risk Factor Represents 2 Points: None Total Score 2 Point Risk Factors: 0 Each Risk Factor Represents 3 Points: None Total Score 3 Point Risk Factors: 0 Each Risk Factor Represents 5 Points: None Total Score 5 Point Risk Factors: 0 Venous Thromboembolism Risk Factor Score *Q: 1 Problem List Initiated/Reviewed/Updated: Yes Orders Last 24hrs: Active Orders 24 hr Category Date Time Status Patient Status Manage Transfer [TRANSFER] Routine ADT 09/30/17 13:01 Active CLOSTRIDIUM DIFFICILE BY PCR [] Stat Lab 09/30/17 09:23 Ordered CULTURE STOOL + SHIGATOX [] Stat Lab 09/30/17 09:23 Ordered Iopamidol [Isovue-300 (61%)] Med 09/30/17 10:45 Active 100 ml IV . DIRECTED Sodium Chloride 0.9% [Normal Saline] 1,000 ml Med 09/30/17 10:45 Active IV ASDIRECTED Resuscitation Status Routine Resus Stat 09/30/17 13:03 Ordered Medication Orders Sodium Chloride (Normal Saline) 1,000 mls @ 200 mls/hr IV ASDIRECTED [facility] Last Admin: 09/30/17 10:52 Dose: 200 mls/hr Iopamidol (Isovue-300 (61%)) 100 ml IV . DIRECTED [facility] Last Admin: 09/30/17 11:21 Dose: 100 ml Assessment/Plan Comment:: ASSESSMENT AND PLAN COLITIS WITH BLOODY DIARRHEA AND ABDOMINAL PAIN-likely infectious in nature, similar to 2 episodes that she experienced last year. Recent antibiotic therapy for dental infection. -Stool for C. difficile and culture pending -IV fluids for hydration -Pain and nausea medication as needed -Unasyn 1.5 g IV every 6 hours MAINTENANCE ISSUES -DVT prophylaxis;Ambulation -GI prophylaxis;Continue outpatient PPI therapy -Singh catheter;Not required -Nutrition;Clear liquid diet -Nicotine dependence;Not indicated CODE STATUS-Full code ADMISSION STATUS-this patient will be admitted to observation status, expect no more than a one night hospital stay for evaluation and management of problems as outlined above. DISPOSITION-anticipate discharge to home after the hospital stay. PRIMARY CARE PROVIDER-Kati Pulliam
[2017-09-30] MEDS ORDERED: Acetaminophen 325 MG Tab PO PRN (13:48)
[2017-09-30] MEDS ORDERED: Sodium Chloride 0.9% 10 ML Syringe FLUSH PRN (13:48)
[2017-09-30] MEDS ORDERED: Ondansetron 4 MG/2 ML SDV IV PRN (13:48)
[2017-09-30] MEDS: fentaNYL 100 MCG/2 ML SDV IVPUSH PRN ×4 (14:46→22:24)
[2017-09-30] MEDS: Ampicillin/Sulbactam Na 1.5 GM in Sodium Chloride 0.9% 50 ML IV SCH ×2 (17:40→21:06)
[2017-09-30] MEDS: Sodium Chloride 0.9% 1,000 ML IV SCH (17:50)
[2017-09-30] MEDS ORDERED: atorvaSTATin 10 MG Tab PO SCH (21:00)
[2017-09-30] MEDS ORDERED: QUEtiapine 100 MG Tab PO SCH (21:00)
[2017-10-01] MEDS: fentaNYL 100 MCG/2 ML SDV IVPUSH PRN ×3 (02:21→10:20)
[2017-10-01] MEDS: Ampicillin/Sulbactam Na 1.5 GM in Sodium Chloride 0.9% 50 ML IV SCH ×2 (03:27→10:21)
[2017-10-01] MEDS: Sodium Chloride 0.9% 1,000 ML IV SCH (03:28)
[2017-10-01 07:17] VITALS: BP 114/74
[2017-10-01] MEDS ORDERED: Pantoprazole 40 MG Tab.CR PO SCH (07:30)
[2017-10-01] MEDS ORDERED: Lisinopril 10 MG Tab PO SCH (09:00)
[2017-10-01] MEDS ORDERED: Hydrochlorothiazide 12.5 MG Cap PO SCH (09:00)
--- NOTE | 2017-10-01 11:33 | PCM.DCSUM1 ---
Discharge Summary - Hospital Course Brief History: Ms. Lofton is a 46-year-old woman who is admitted through the emergency department to observation status with bloody diarrhea secondary to colitis. - Discharge Data Discharge Date: 10/01/17 Discharge Disposition: Home, Self-Care 01 Condition: Fair - Discharge Diagnosis/Problem(s) (1) Colitis SNOMED Code(s): 23927227 ICD Code: K52.9 - NONINFECTIVE GASTROENTERITIS AND COLITIS, UNSPECIFIED Status: Acute Current Visit: Yes (2) Rectal bleeding SNOMED Code(s): 66449613 ICD Code: K62.5 - HEMORRHAGE OF ANUS AND RECTUM Status: Acute Current Visit: Yes - Patient Summary/Data Hospital Course: Ms. Lofton is a 46-year-old woman who was admitted through the emergency department to observation status for further evaluation and management of colitis with bloody diarrhea and abdominal pain. She had a previous episode of this occurring approximately 11 months ago, with very similar symptoms and findings. She was hospitalized overnight in January 2017 with similar symptoms that resolved quickly. She's been on antibiotic therapy over the past 2 weeks for management of a dental infection. Otherwise she's been feeling well until yesterday when she developed acute onset of cramping abdominal pain associated with bloody diarrhea. On evaluation in the emergency department today she is found to have an elevated white blood cell count, CT scan shows evidence of inflammation in the left transverse colon extending into the sigmoid colon. She was admitted to the hospital and given IV fluids for hydration as well as pain medication. Antibiotic therapy was initiated with Unasyn 1.5 g IV every 6 hours. During hospitalization had no further loose stools and past no blood. She was feeling somewhat better by the following morning, tolerating clear liquids with less abdominal pain. Vital signs had remained stable and she was afebrile throughout the hospital stay. She felt well enough to be discharged for home for outpatient management with oral antibiotic therapy. She will be placed on Augmentin 875 one by mouth twice a day for 7 days. Activity will be as tolerated and she will be on a soft low residue diet. Follow-up appointment will be scheduled with her primary care provider within one week. She is instructed to take probiotic therapy twice daily on a continuous basis. - Patient Instructions Diet: GI Soft/Low Residue/Low Fiber Activity: As Tolerated Other/Special Instructions: Please schedule follow-up with primary care provider within one week. - Discharge Plan *PRESCRIPTION DRUG MONITORING PROGRAM REVIEWED*: Not Applicable *COPY OF PRESCRIPTION DRUG MONITORING REPORT IN PATIENT CAIN: Not Applicable Prescriptions/Med Rec: Amoxicillin/Potassium Clav [Augmentin 875-125 Tablet] 1 each PO BID #14 tablet Lactobacillus Acidophilus [Acidophilus Lactobacilli] 1 each PO BID #60 capsule Home Medications: Home Meds MV,Ca,Min/Iron Fum/FA/Vit K [Multi For Her Tablet] 1 tab PO DAILY 05/03/14 [ History] QUEtiapine [SEROquel] 100 mg PO DAILY 05/03/14 [History] Lisinopril/Hydrochlorothiazide [Zestoretic 10-12.5 mg Tablet] 1 each PO DAILY [History] atorvaSTATin [Lipitor] 10 mg PO BEDTIME 09/04/16 [History] Omeprazole 20 mg PO DAILY 10/15/16 [History] Amoxicillin/Potassium Clav [Augmentin 875-125 Tablet] 1 each PO BID #14 tablet 10/01/17 [Rx] Lactobacillus Acidophilus [Acidophilus Lactobacilli] 1 each PO BID #60 capsule 10/01/17 [Rx] Referrals: Kati Pulliam CNM [Primary Care Provider] - - Discharge Summary/Plan Comment DC Time >30 min.: No - Patient Data Vitals - Most Recent: Last Vital Signs Temp 97.1 F 10/01/17 07:15 Pulse 76 10/01/17 07:15 Resp 16 10/01/17 07:15 BP 114/74 10/01/17 08:40 Pulse Ox 100 10/01/17 07:15 Weight - Most Recent: 135 lb 12.8 oz I&O - Last 24 hours: Intake & Output 09/30/17 10/01/17 10/01/17 22:59 06:59 14:59 Intake Total 2275 1332 700 Balance 2275 1332 700 Lab Results - Last 24 hrs: Laboratory Results - last 24 hr 10/01/17 10/01/17 Range/Units 05:00 05:00 WBC 5.7 (4.5-11.0) K/uL RBC 3.27 L (3.30-5.50) M/uL Hgb 10.0 L D (12.0-15.0) g/dL Hct 29.3 L (36.0-48.0) % MCV 90 (80-98) fL MCH 31 (27-31) pg MCHC 34 (32-36) % Plt Count 238 (150-400) K/uL Neut % (Auto) 46 (36-66) % Lymph % (Auto) 43 (24-44) % [place] % (Auto) 9 H (2-6) % Eos % (Auto) 2 (2-4) % Baso % (Auto) 0 (0-1) % Sodium 136 L (140-148) mmol/L Potassium 3.9 (3.6-5.2) mmol/L Chloride 103 (100-108) mmol/L Carbon Dioxide 28 (21-32) mmol/L Anion Gap 8.9 (5.0-14.0) mmol/L BUN 6 L D (7-18) mg/dL Creatinine 0.7 (0.6-1.0) mg/dL Est Cr Clr Drug Dosing 94.01 mL/min Estimated GFR (MDRD) > 60 (>60) Glucose 92 (74-106) mg/dL Calcium 8.3 L (8.5-10.1) mg/dL Med Orders - Current: Current Medications Acetaminophen (Tylenol) 650 mg PO Q4H PRN PRN Reason: Pain (Mild 1-3)/fever Last Admin: 09/30/17 17:03 Dose: 650 mg Atorvastatin Calcium (Lipitor) 10 mg PO BEDTIME [facility] Last Admin: 09/30/17 21:04 Dose: 10 mg Fentanyl (Sublimaze) 50 mcg IVPUSH Q2H PRN PRN Reason: Pain Last Admin: 10/01/17 10:20 Dose: 50 mcg Hydrochlorothiazide (Hydrochlorothiazide) 12.5 mg PO DAILY [facility] Last Admin: 10/01/17 08:40 Dose: 12.5 mg Sodium Chloride (Normal Saline) 1,000 mls @ 125 mls/hr IV ASDIRECTED [facility] Last Admin: 10/01/17 03:28 Dose: 125 mls/hr Ampicillin Sodium/Sulbactam (Sodium 1.5 gm/ Sodium Chloride) 50 mls @ 100 mls/ hr IV Q6H [facility] Last Admin: 10/01/17 10:21 Dose: 100 mls/hr Lisinopril (Prinivil) 10 mg PO DAILY [facility] Last Admin: 10/01/17 08:40 Dose: 10 mg Ondansetron HCl (Zofran) 4 mg IV Q4H PRN PRN Reason: Nausea/Vomiting Pantoprazole Sodium (Protonix) 40 mg PO ACBREAKFAST CATHY Quetiapine Fumarate (Seroquel) 100 mg PO BEDTIME CATHY Last Admin: 09/30/17 21:04 Dose: 100 mg Sodium Chloride (Saline Flush) 10 ml FLUSH ASDIRECTED PRN PRN Reason: Keep Vein Open Last Admin: 10/01/17 02:22 Dose: 10 ml Discontinued Medications Fentanyl (Sublimaze) 100 mcg IVPUSH ONETIME ONE Stop: 09/30/17 09:29 Last Admin: 09/30/17 09:42 Dose: 100 mcg Fentanyl (Sublimaze) 50 mcg IVPUSH ONETIME ONE Stop: 09/30/17 10:43 Last Admin: 09/30/17 10:53 Dose: 50 mcg Fentanyl (Sublimaze) 100 mcg IVPUSH ONETIME ONE Stop: 09/30/17 11:37 Last Admin: 09/30/17 11:39 Dose: 100 mcg Lactated Ringer's (Ringers, Lactated) 1,000 mls @ 1,000 mls/hr IV BOLUS ONE Stop: 09/30/17 10:21 Last Admin: 09/30/17 09:38 Dose: 1,000 mls/hr Ciprofloxacin/Dextrose 400 mg/ (Premix) 200 mls @ 200 mls/hr IV ONETIME ONE Stop: 09/30/17 11:34 Last Admin: 09/30/17 11:32 Dose: Not Given Metronidazole 500 mg/ Premix 100 mls @ 100 mls/hr IV ONETIME ONE Stop: 09/30/17 11:34 Last Admin: 09/30/17 10:57 Dose: 100 mls/hr Sodium Chloride (Normal Saline) 80 mls @ 3.5 mls/sec IV ONETIME ONE Stop: 09/30/17 10:43 Last Admin: 09/30/17 11:23 Dose: 3 mls/sec Sodium Chloride (Normal Saline) 1,000 mls @ 200 mls/hr IV ASDIRECTED [facility] Last Admin: 09/30/17 10:52 Dose: 200 mls/hr Iopamidol (Isovue-300 (61%)) 100 ml IV . DIRECTED [facility] Last Admin: 09/30/17 11:21 Dose: 100 ml Metoclopramide HCl (Reglan) 10 mg IVPUSH ONETIME ONE Stop: 09/30/17 09:29 Last Admin: 09/30/17 09:41 Dose: 10 mg Pantoprazole Sodium (Protonix) 20 mg PO ACBREAKFAST [facility] Last Admin: 10/01/17 08:40 Dose: 20 mg Sodium Chloride (Saline Flush) 10 ml FLUSH ONETIME ONE Stop: 09/30/17 10:43 Last Admin: 09/30/17 11:23 Dose: 10 ml - Exam General: Reports: Alert, Oriented, Cooperative, Mild Distress Lungs: Reports: Clear to Auscultation, Normal Respiratory Effort Cardiovascular: Reports: Regular Rate, Regular Rhythm, No Murmurs GI/Abdominal Exam: Soft, Tender. No: Distended, Guarding, Rigid, Rebound
[2017-10-02] MEDS ORDERED: Pantoprazole 40 MG Tab.CR PO SCH (07:30)
== END 2017-10-01 12:16 | disposition home or self-care (01) ==
LOC: JP.ED 08:47 → JP.MS 13:01
PROVIDERS: ADMIT Hospitalist; ATTEND Hospitalist
DX: K52.9 Noninfective gastroenteritis and colitis, unspecified (principal); I10 Essential (primary) hypertension; Z79.899 Other long term (current) drug therapy; Z88.1 Allergy status to other antibiotic agents; Z88.5 Allergy status to narcotic agent; Z88.8 Allergy status to other drugs, medicaments and biological substances; Z87.891 Personal history of nicotine dependence
CPT/HCPCS: 36415; 74177; 80048; 85025; 85027; 96361; 96365; 96375; 96376; 99284; A9270; J0287; J2765; J3010; J3490; J7030; J7050; J7120; Q9967

== ENCOUNTER 2017-10-07 09:55 | Observation (INO) | payer OTHER ==
[2017-10-07] MEDS ORDERED: Ondansetron 4 MG/2 ML SDV IVPUSH ONE ×2 (10:38→13:33)
--- NOTE | 2017-10-07 10:39 | EDM.PDOC ---
ED HPI GENERAL MEDICAL PROBLEM - General Chief Complaint: Abdominal Pain Stated Complaint: stomach pain Time Seen by Provider: 10/07/17 10:39 Source of Information: Reports: Patient History Limitations: Reports: No Limitations - History of Present Illness INITIAL COMMENTS - FREE TEXT/NARRATIVE: Pt arrived with pain in the abdoman, vomiting and a history of no BMs since hospital discharge. Onset: Gradual Duration: Day(s): Location: Reports: Abdomen Associated Symptoms: Reports: Nausea/Vomiting, Weakness Abdomen Pain Score (Numeric/FACES): 10 - Related Data Allergies Allergy/AdvReac Type Severity Reaction Status Date / Time ciprofloxacin Allergy Intermediate unknown Verified 10/07/17 10:17 hydromorphone [Hydromorphone] Allergy Intermediate Rash Verified 10/07/17 10:17 ketorolac Allergy abd pain Verified 10/07/17 10:17 Home Meds: Home Meds MV,Ca,Min/Iron Fum/FA/Vit K [Multi For Her Tablet] 1 tab PO DAILY 05/03/14 [ History] QUEtiapine [SEROquel] 100 mg PO DAILY 05/03/14 [History] Lisinopril/Hydrochlorothiazide [Zestoretic 10-12.5 mg Tablet] 1 each PO DAILY [History] atorvaSTATin [Lipitor] 10 mg PO BEDTIME 09/04/16 [History] Omeprazole 20 mg PO DAILY 10/15/16 [History] Amoxicillin/Potassium Clav [Augmentin 875-125 Tablet] 1 each PO BID #14 tablet 10/01/17 [Rx] Lactobacillus Acidophilus [Acidophilus Lactobacilli] 1 each PO BID #60 capsule 10/01/17 [Rx] Past Medical History Cardiovascular History: Reports: Hypertension Gastrointestinal History: Reports: Other (See Below) Other Gastrointestinal History: colitis LAPPER History: Reports: 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, Musculoskeletal History: Reports: Other (See Below) Other Musculoskeletal History: s/p cervical surgery - Infectious Disease History Infectious Disease History: Reports: Chicken Pox - Past Surgical History HEENT Surgical History: Reports: Oral Surgery Other HEENT Surgeries/Procedures: wisdom teeth GI Surgical History: Reports: Appendectomy Other GI Surgeries/Procedures: HX OF COLITIS Female Surgical History: Reports: Hysterectomy Neurological Surgical History: Reports: C-Spine Social & Family History - Family History Family Medical History: Noncontributory - Tobacco Use Smoking Status *Q: Former Smoker Years of Tobacco use: 35 Packs/Tins Daily: 0.5 Used Tobacco, but Quit: Yes Month/Year Tobacco Last Used: 01/2015 - Caffeine Use Caffeine Use: Reports: Coffee, Soda - Recreational Drug Use Recreational Drug Use: No ED ROS GENERAL - Review of Systems Review Of Systems: See Below Constitutional: Reports: Decreased Appetite HEENT: Reports: No Symptoms Respiratory: Reports: No Symptoms Cardiovascular: Reports: No Symptoms Endocrine: Reports: No Symptoms GI/Abdominal: Reports: Abdominal Pain, Constipation, Other (pt is not passing gas) : Reports: No Symptoms Musculoskeletal: Reports: No Symptoms Neurological: Reports: No Symptoms Psychiatric: Reports: Depression ED EXAM, GI/ABD - Physical Exam Exam: See Below Text/Narrative:: pt is a thin appearing pt who is wretching and vomiting and having upper abdomanal pain. Exam Limited By: No Limitations General Appearance: Alert, Moderate Distress, Thin, Cachetic, Active Emesis, Other (pupils are equal and reactive. ) Ears: Normal TMs Nose: Normal Inspection Throat/Mouth: Normal Inspection Head: Atraumatic Neck: Normal Inspection Respiratory/Chest: No Respiratory Distress Cardiovascular: Regular Rate, Rhythm GI/Abdominal Exam: Tender, Other (pt has upper abdomanal tenderness) (Female) Exam: Deferred Rectal (Female) Exam: Deferred Back Exam: Normal Inspection Extremities: Normal Inspection Neurological: Alert, Oriented, Normal Cognition Psychiatric: Anxious Course - Vital Signs Last Recorded V/S: Last Vital Signs Temp 35.2 C 10/07/17 10:12 Pulse 80 10/07/17 10:12 Resp 20 10/07/17 10:12 BP 107/80 10/07/17 10:12 Pulse Ox 99 10/07/17 10:12 - Orders/Labs/Meds Orders: Active Orders 24 hr Category Date Time Status UA W/MICROSCOPIC [URIN] Urgent Lab 10/07/17 10:37 Ordered Sodium Chloride 0.9% [Normal Saline] 1,000 ml Med 10/07/17 10:45 Active IV ASDIRECTED Sodium Chloride 0.9% [Normal Saline] 1,000 ml Med 10/07/17 13:45 Active IV ASDIRECTED Medication Orders Sodium Chloride (Normal Saline) 1,000 mls @ 999 mls/hr IV ASDIRECTED CATHY Last Admin: 10/07/17 12:32 Dose: 999 mls/hr Sodium Chloride (Normal Saline) 1,000 mls @ 125 mls/hr IV ASDIRECTED CATHY Last Admin: 10/07/17 13:48 Dose: 125 mls/hr Labs: Laboratory Tests 10/07/17 10/07/17 10/07/17 Range/Units 10:49 10:49 12:07 WBC 23.0 H (4.5-11.0) K/uL RBC 5.44 (3.30-5.50) M/uL Hgb 16.5 H D (12.0-15.0) g/dL Hct 46.8 (36.0-48.0) % MCV 86 (80-98) fL MCH 30 (27-31) pg MCHC 35 (32-36) % Plt Count 510 H (150-400) K/uL Neut % (Auto) 90 H (36-66) % Lymph % (Auto) 8 L (24-44) % [place] % (Auto) 1 L (2-6) % Eos % (Auto) 0 L (2-4) % Baso % (Auto) 0 (0-1) % Sodium 132 L (140-148) mmol/L Potassium 3.0 L (3.6-5.2) mmol/L Chloride 94 L (100-108) mmol/L Carbon Dioxide 25 (21-32) mmol/L Anion Gap 16.0 H (5.0-14.0) mmol/L BUN 12 D (7-18) mg/dL Creatinine 1.2 H D (0.6-1.0) mg/dL Est Cr Clr Drug Dosing 54.84 mL/min Estimated GFR (MDRD) 48 L (>60) Glucose 244 H (74-106) mg/dL Calcium 11.5 H D (8.5-10.1) mg/dL Total Bilirubin 0.7 D (0.2-1.0) mg/dL AST 28 (15-37) U/L ALT 31 (12-78) U/L Alkaline Phosphatase 146 H (46-116) U/L Total Protein 8.3 H (6.4-8.2) g/dL Albumin 4.6 (3.4-5.0) g/dL Globulin 3.7 H (2.3-3.5) g/dL Albumin/Globulin Ratio 1.2 (1.2-2.2) Lipase 203 (73-393) U/L Meds: Medications Generic Name Dose Route Start Last Admin Trade Name Freq PRN Reason Stop Dose Admin Sodium Chloride 1,000 mls @ 999 mls/hr 10/07/17 10:45 10/07/17 12:32 Normal Saline IV 999 mls/hr ASDIRECTED CATHY Administration Sodium Chloride 1,000 mls @ 125 mls/hr 10/07/17 13:45 10/07/17 13:48 Normal Saline IV 125 mls/hr ASDIRECTED CATHY Administration Discontinued Medications Generic Name Dose Route Start Last Admin Trade Name Freq PRN Reason Stop Dose Admin Potassium Chloride/Sodium Chloride 1,000 mls @ 250 mls/hr 10/07/17 13:45 Normal Saline With 40 Meq Kcl IV ASDIRECTED CATHY Morphine Sulfate 2 mg 10/07/17 12:41 10/07/17 13:02 Morphine IVPUSH 10/07/17 12:42 2 mg ONETIME ONE Administration Ondansetron HCl 4 mg 10/07/17 10:38 10/07/17 12:32 Zofran IVPUSH 10/07/17 10:39 4 mg ONETIME ONE Administration Ondansetron HCl 4 mg 10/07/17 13:33 10/07/17 13:49 Zofran IVPUSH 10/07/17 13:34 4 mg ONETIME ONE Administration - Re-Assessments/Exams Free Text/Narrative Re-Assessment/Exam: 10/07/17 14:12 pt was given 2 liters of fluid, she was given morphine 2 mg for pain plus zoforan. She seemed distended. She had a cat scan of the abdoman which showed on going bowel thickness and alot of stool. This did not look like a obstruction. --more like a ileus. Departure - Departure Time of Disposition: 14:17 Disposition: Admitted As Inpatient 66 Condition: Fair Clinical Impression: Ileus, Constipation, Colitis, Hypokalemia - Discharge Information Referrals: PCP,None [Primary Care Provider] - Forms: ED Department Discharge Care Plan Goals: admit to Dr wise. - My Orders Last 24 Hours: My Active Orders 10/07/17 10:37 UA W/MICROSCOPIC [URIN] Urgent 10/07/17 10:45 Sodium Chloride 0.9% [Normal Saline] 1,000 ml IV ASDIRECTED - Assessment/Plan Last 24 Hours: My Active Orders 10/07/17 10:37 UA W/MICROSCOPIC [URIN] Urgent 10/07/17 10:45 Sodium Chloride 0.9% [Normal Saline] 1,000 ml IV ASDIRECTED
[2017-10-07] MEDS ORDERED: Sodium Chloride 0.9% 1,000 ML IV SCH (10:45)
--- NOTE | 2017-10-07 12:24 | CR ---
Abdomen Series w Chest 1V CLINICAL HISTORY: Abdominal pain FINDINGS: Lung lorenz are clear. No free air is identified. There is moderate retained stool within t he left colon. The transverse colon hasn't a hospital pattern. There may be some mild generalized muc osal thickening. Small intestinal gas pattern is nonacute. IMPRESSION: A Hospital pattern within the transverse colon. Some mucosal thickening in the descending colon is not excluded. This can be seen with chronic ulcerative colitis. It can also be seen with ch ronic laxative abuse Nonacute small intestinal gas pattern
[2017-10-07] MEDS ORDERED: Morphine 2 MG/ML Syringe IVPUSH ONE ×2 (12:41→14:16)
--- NOTE | 2017-10-07 13:40 | CT ---
Abdomen Pelvis wo Cont CLINICAL HISTORY: Upper abdominal pain COMPARISON: Recent abdominal series. TECHNIQUE: Axial tomographic images are obtained from the dome of the diaphragm to the pubic symphysi s without IV contrast enhancement. No oral contrast was used. Auto dosage reduction and iterative rec onstruction techniques employed. FINDINGS: The lung bases are clear. The liver shows no mass or biliary dilatation. The gallbladder reed s a normal contour. The spleen has a normal size and shape. The pancreas shows no mass or inflammator y change. The adrenal glands appear normal bilaterally. The kidneys show no stones or hydronephrosis. The aorta has a normal contour. There is no suspicious retroperitoneal adenopathy. There is moderate stool throughout the colon. There is impression of some areas of mild generalized m ucosal thickening. The the colon has relatively a hostile pattern. There is some mild streaking of th e pericolic fat in the splenic flexure, transverse colon and proximal descending colon. There are flu id-filled the loops of small bowel without significant dilatation IMPRESSION: There is a relatively a hostile pattern of the the transverse and descending colon with s ome colonic thickening. There is also some pericolic inflammatory changes in the fat. This is suspect for a pancolitis. This pattern can be seen with the chronic ulcerative colitis. The fluid-filled loo ps of small bowel and colon suggest the ileus.
[2017-10-07] MEDS ORDERED: Sodium Chloride 0.9% with KCl 1,000 ML IV SCH (13:45)
[2017-10-07] MEDS: Sodium Chloride 0.9% 1,000 ML IV SCH ×2 (13:48→21:47)
--- NOTE | 2017-10-07 14:55 | PCM.HP ---
H&P History of Present Illness - General Date of Service: 10/07/17 Admit Problem/Dx: Admission Diagnosis/Problem Admission Diagnosis/Problem Abdominal pain Source of Information: Patient, Provider History Limitations: Reports: No Limitations - History of Present Illness Initial Comments - Free Text/Narative: Jaida presents to the emergency room today with moderately severe generalized abdominal pain. This is a crampy pain that radiates throughout her abdomen. It started suddenly this morning. She did not have any abdominal pain yesterday. Pain is associated with nausea and vomiting. She hasn't taken anything at home to make the pain feel better. Pain medications here in the emergency room did eventually relieve her pain. She reports that she has not had a bowel movement in approximately one week. She had been feeling well prior to onset of symptoms and had a normal appetite and normal energy. She thinks that she's been drinking a normal amount of fluid. No complaints of shortness of breath or chest pain. She has not noticed any blood in her stool since she was hospitalized. The left-sided abdominal pain that brought her to the emergency room has resolved. Workup in the emergency room was suggestive of severe constipation complicated by dehydration and hypokalemia as well as nausea and vomiting. Given the nausea and vomiting she is not safe for outpatient management and will be admitted for hydration, electrolyte replacement and management of the severe constipation. Abdomen Pain Score (Numeric/FACES): 10 - Related Data Allergies/Adverse Reactions: Allergies Allergy/AdvReac Type Severity Reaction Status Date / Time ciprofloxacin Allergy Intermediate unknown Verified 10/07/17 10:17 hydromorphone [Hydromorphone] Allergy Intermediate Rash Verified 10/07/17 10:17 ketorolac Allergy abd pain Verified 10/07/17 10:17 Home Medications: Home Meds MV,Ca,Min/Iron Fum/FA/Vit K [Multi For Her Tablet] 1 tab PO DAILY 05/03/14 [ History] QUEtiapine [SEROquel] 100 mg PO DAILY 05/03/14 [History] Lisinopril/Hydrochlorothiazide [Zestoretic 10-12.5 mg Tablet] 1 each PO DAILY [History] atorvaSTATin [Lipitor] 10 mg PO BEDTIME 09/04/16 [History] Omeprazole 20 mg PO DAILY 10/15/16 [History] Amoxicillin/Potassium Clav [Augmentin 875-125 Tablet] 1 each PO BID #14 tablet 10/01/17 [Rx] Lactobacillus Acidophilus [Acidophilus Lactobacilli] 1 each PO BID #60 capsule 10/01/17 [Rx] Past Medical History Cardiovascular History: Reports: Hypertension Gastrointestinal History: Reports: Other (See Below) Other Gastrointestinal History: colitis [employer] History: Reports: 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, Musculoskeletal History: Reports: Other (See Below) Other Musculoskeletal History: s/p cervical surgery - Infectious Disease History Infectious Disease History: Reports: Chicken Pox - Past Surgical History HEENT Surgical History: Reports: Oral Surgery Other HEENT Surgeries/Procedures: wisdom teeth GI Surgical History: Reports: Appendectomy Other GI Surgeries/Procedures: HX OF COLITIS Female Surgical History: Reports: Hysterectomy Neurological Surgical History: Reports: C-Spine Social & Family History - Family History Family Medical History: Noncontributory - Tobacco Use Smoking Status *Q: Former Smoker Years of Tobacco use: 35 Packs/Tins Daily: 0.5 Used Tobacco, but Quit: Yes Month/Year Tobacco Last Used: 01/2015 - Caffeine Use Caffeine Use: Reports: Coffee, Soda - Alcohol Use Alcohol Use History: No - Recreational Drug Use Recreational Drug Use: No H&P Review of Systems - Review of Systems: Review Of Systems: See Below Free Text/Narrative: A complete 12 point review of systems was obtained. Pertinent positives and negatives are noted in the history of present illness. All other systems were reviewed and were negative except as noted. Exam - Exam Exam: See Below - Vital Signs Vital Signs: Last Vital Signs Temp 35.2 C 10/07/17 10:12 Pulse 80 10/07/17 10:12 Resp 20 10/07/17 10:12 BP 107/80 10/07/17 10:12 Pulse Ox 99 10/07/17 10:12 Weight: 61.235 kg - Exam Quality Assessment: No: Supplemental Oxygen General: Alert, Oriented, Cooperative, Mild Distress HEENT: Conjunctiva Clear. No: Mucosa Moist & [place] (dry), Scleral Icterus Neck: Supple, Trachea Midline. No: Lymphadenopathy Lungs: Clear to Auscultation, Normal Respiratory Effort Cardiovascular: Regular Rate, Regular Rhythm GI/Abdominal Exam: Soft, No Distention, Tender, Abnormal Bowel Sounds ( hypoactive) Extremities: No Pedal Edema. No: Increased Warmth Skin: Warm, Dry Neuro Extensive - Mental Status: Alert, Oriented x3, Nl Response to Commands Neuro Extensive - Motor, Sensory, Reflexes: CN II-XII Intact. No: Dysarthria, Abnormal Motor, Tremor Psychiatric: Alert, Normal Affect - Patient Data Lab Results Last 24 hrs: Laboratory Results - last 24 hr 10/07/17 10/07/17 10/07/17 Range/Units 10:49 10:49 12:07 WBC 23.0 H (4.5-11.0) K/uL RBC 5.44 (3.30-5.50) M/uL Hgb 16.5 H D (12.0-15.0) g/dL Hct 46.8 (36.0-48.0) % MCV 86 (80-98) fL MCH 30 (27-31) pg MCHC 35 (32-36) % Plt Count 510 H (150-400) K/uL Neut % (Auto) 90 H (36-66) % Lymph % (Auto) 8 L (24-44) % [place] % (Auto) 1 L (2-6) % Eos % (Auto) 0 L (2-4) % Baso % (Auto) 0 (0-1) % Sodium 132 L (140-148) mmol/L Potassium 3.0 L (3.6-5.2) mmol/L Chloride 94 L (100-108) mmol/L Carbon Dioxide 25 (21-32) mmol/L Anion Gap 16.0 H (5.0-14.0) mmol/L BUN 12 D (7-18) mg/dL Creatinine 1.2 H D (0.6-1.0) mg/dL Est Cr Clr Drug Dosing 54.84 mL/min Estimated GFR (MDRD) 48 L (>60) Glucose 244 H (74-106) mg/dL Calcium 11.5 H D (8.5-10.1) mg/dL Total Bilirubin 0.7 D (0.2-1.0) mg/dL AST 28 (15-37) U/L ALT 31 (12-78) U/L Alkaline Phosphatase 146 H (46-116) U/L Total Protein 8.3 H (6.4-8.2) g/dL Albumin 4.6 (3.4-5.0) g/dL Globulin 3.7 H (2.3-3.5) g/dL Albumin/Globulin Ratio 1.2 (1.2-2.2) Lipase 203 (73-393) U/L Result Diagrams: 10/07/17 10:49 10/07/17 10:49 Imaging Impressions Last 24 hrs: chest and abdominal x-ray - no evidence for pneumonia, mass or effusion. Significant stool noted in the colon on abdominal x-ray. No evidence for obstruction. CT abd/pelvis - images personally reviewed - there is significant stool throughout the colon. Small bowel with mild distention raising concern for possible ileus but no definite evidence for obstruction. *Q Meaningful Use (ADM) - VTE Risk Assess *Q Each Risk Factor Represents 1 Point: Age 41 - 59 years Total Score 1 Point Risk Factors: 1 Each Risk Factor Represents 2 Points: None Total Score 2 Point Risk Factors: 0 Each Risk Factor Represents 3 Points: None Total Score 3 Point Risk Factors: 0 Each Risk Factor Represents 5 Points: None Total Score 5 Point Risk Factors: 0 Venous Thromboembolism Risk Factor Score *Q: 1 - Problem List (1) Abdominal pain SNOMED Code(s): 67440107 ICD Code: R10.9 - UNSPECIFIED ABDOMINAL PAIN Status: Acute Current Visit : No Qualifiers: Abdominal location: lower abdomen, unspecified Qualified Code(s): R10.30 - Lower abdominal pain, unspecified (2) Constipation SNOMED Code(s): 32632929 ICD Code: K59.00 - CONSTIPATION, UNSPECIFIED Status: Acute Current Visit : Yes Qualifiers: Constipation type: unspecified constipation type Qualified Code(s): K59.00 - Constipation, unspecified (3) Hypokalemia SNOMED Code(s): 24708789 ICD Code: E87.6 - HYPOKALEMIA Status: Acute Current Visit: Yes Problem List Initiated/Reviewed/Updated: Yes Orders Last 24hrs: Active Orders 24 hr Category Date Time Status Patient Status Manage Transfer [TRANSFER] Routine ADT 10/07/17 14:48 Ordered UA W/MICROSCOPIC [URIN] Urgent Lab 10/07/17 10:37 Ordered Potassium Chloride 20 meq Med 10/07/17 14:45 Ordered Lidocaine 1% [Xylocaine 1%] 2 ml Sodium Chloride 0.9% [Normal Saline] 100 ml IV Q2H Sodium Chloride 0.9% [Normal Saline] 1,000 ml Med 10/07/17 10:45 Active IV ASDIRECTED Sodium Chloride 0.9% [Normal Saline] 1,000 ml Med 10/07/17 13:45 Active IV ASDIRECTED Resuscitation Status Routine Resus Stat 10/07/17 14:49 Ordered Medication Orders Sodium Chloride (Normal Saline) 1,000 mls @ 999 mls/hr IV ASDIRECTED [facility] Last Admin: 10/07/17 12:32 Dose: 999 mls/hr Sodium Chloride (Normal Saline) 1,000 mls @ 125 mls/hr IV ASDIRECTED [facility] Last Admin: 10/07/17 13:48 Dose: 125 mls/hr Potassium Chloride 20 meq/Lidocaine HCl 2 ml/ Sodium Chloride 112 mls @ 50 mls/ hr IV Q2H [facility] Stop: 10/07/17 18:44 Assessment/Plan Comment:: ASSESSMENT AND PLAN - Abdominal pain with nausea and vomiting - CT suggestive of possible ileus as well as significant stool throughout the colon. With the nausea and vomiting we are unable to administer medications orally and will need to use a rectal route to start. Symptoms are improving with management in the emergency room. No strong evidence to support infection at this time. -Enema 1 and reassess -Pain control -nausea control -IV fluids Hypokalemia - potassium of 3, likely secondary to suboptimal intake versus absorption. -40 mEq 1 now and recheck in the morning Hypercalcemia - mild, I suspect this is related to dehydration and should improve with hydration. -IV fluids as above and recheck in the morning Recent left-sided colitis - no ongoing abdominal pain or diarrhea and no hematochezia since hospital discharge. Maintenance issues - - DVT prophylaxis - mechanical - GI prophylaxis - PPI - Nutrition - nothing by mouth until vomiting has resolved - Singh catheter - not indicated CODE STATUS - full code Admission justification - patient will be referred observation status for management of above issues Disposition - I would anticipate discharge to homeafter the hospital stay Primary care physician - Sarah Tobar M.D.
[2017-10-07] MEDS: Potassium Chloride 20 MEQ, Lidocaine 1% 2 ML in Sodium Chloride 0.9% 100 ML IV SCH ×2 (15:22→17:37)
[2017-10-07] MEDS ORDERED: Ondansetron 4 MG/2 ML SDV IV PRN (16:20)
[2017-10-07] MEDS ORDERED: Polyethylene Glycol 3350 Powder 17 GM Packet PO PRN (16:20)
[2017-10-07] MEDS ORDERED: LORazepam 2 MG/ML SDV IVPUSH PRN (16:20)
[2017-10-07] MEDS ORDERED: Ondansetron 4 MG Tab.DIS PO PRN (16:20)
[2017-10-07] MEDS ORDERED: Sodium Phosphate,Monobasic/Sodium Phosphate,Dibasic Enema 133 ML Bottle RECTAL ONE (16:20)
[2017-10-07] MEDS: Morphine 2 MG/ML Syringe IVPUSH PRN ×3 (17:33→23:07)
[2017-10-07] MEDS: Lactobacillus Rhamnosus GG (Probiotic) Cap PO SCH (21:18)
[2017-10-07] MEDS: Amoxicillin/Clavulanate K 875-125 MG Tab PO SCH (21:18)
[2017-10-07] MEDS: QUEtiapine 100 MG Tab PO SCH (21:19)
[2017-10-07] MEDS: atorvaSTATin 10 MG Tab PO SCH (21:19)
[2017-10-07] MEDS: Acetaminophen 325 MG Tab PO PRN (21:23)
--- NOTE | 2017-10-08 00:02 | PCM.SN ---
- Free Text/Narrative Note: Time: [id number], call from [address] [place] [address] Nursing request medication change S/O: give Morphine 2 mg IV for pain, promptly had an emesis A: Morphine side effect P: discontinue Morphine, order Fentanyl 50 mcg IV every 2 hours. continue present plan of care.
[2017-10-08] MEDS: fentaNYL 100 MCG/2 ML SDV IVPUSH PRN ×5 (03:02→16:39)
[2017-10-08] MEDS: Sodium Chloride 0.9% 1,000 ML IV SCH (05:49)
[2017-10-08] MEDS: Pantoprazole 40 MG Tab.CR PO SCH (07:18)
[2017-10-08] MEDS ORDERED: oxyCODONE 5 MG Tab PO PRN (08:25)
[2017-10-08] MEDS: Lactobacillus Rhamnosus GG (Probiotic) Cap PO SCH ×2 (08:58→21:08)
[2017-10-08] MEDS: Amoxicillin/Clavulanate K 875-125 MG Tab PO SCH ×2 (08:58→21:08)
[2017-10-08] MEDS: Lisinopril 10 MG Tab PO SCH (08:58)
[2017-10-08] MEDS: Hydrochlorothiazide 12.5 MG Cap PO SCH (08:58)
[2017-10-08] MEDS: Acetaminophen 325 MG Tab PO PRN ×4 (09:02→21:08)
--- NOTE | 2017-10-08 12:05 | PCM.PN ---
- General Info Date of Service: 10/08/17 Functional Status: Reports: Pain Controlled, Tolerating Diet - Review of Systems General: Denies: Fever Gastrointestinal: Reports: Abdominal Pain Systems Review Comment:: there were no acute events overnight. Patient had several bowel movements after the enema. Nausea and vomiting have resolved. She continues to have left lower quadrant and lower abdominal pain though it is better today than yesterday. A small quantity of blood was noted in the stool overnight but none this morning. No fevers. White blood cell count is now down to 13,000 from 25,000. - Patient Data Vitals - Most Recent: Last Vital Signs Temp 36.7 C 10/08/17 10:24 Pulse 82 10/08/17 10:24 Resp 18 10/08/17 10:24 BP 101/70 10/08/17 10:24 Pulse Ox 100 10/08/17 10:24 Weight - Most Recent: 60.101 kg I&O - Last 24 Hours: Intake & Output 10/07/17 10/08/17 10/08/17 22:59 06:59 14:59 Intake Total 1538 1514 236 Output Total 200 100 Balance 1338 1414 236 Lab Results Last 24 Hours: Laboratory Results - last 24 hr 10/07/17 10/07/17 10/08/17 Range/Units 12:07 19:50 04:18 WBC 13.4 H (4.5-11.0) K/uL RBC 4.02 (3.30-5.50) M/uL Hgb 12.0 D (12.0-15.0) g/dL Hct 35.1 L (36.0-48.0) % MCV 87 (80-98) fL MCH 30 (27-31) pg MCHC 34 (32-36) % Plt Count 344 (150-400) K/uL Sodium (140-148) mmol/L Potassium (3.6-5.2) mmol/L Chloride (100-108) mmol/L Carbon Dioxide (21-32) mmol/L Anion Gap (5.0-14.0) mmol/L BUN (7-18) mg/dL Creatinine (0.6-1.0) mg/dL Est Cr Clr Drug Dosing mL/min Estimated GFR (MDRD) (>60) Glucose (74-106) mg/dL Calcium (8.5-10.1) mg/dL Lipase 203 (73-393) U/L Urine Color Brown Urine Appearance Cloudy Urine pH 5.0 (4.5-8.0) Ur Specific [place] 1.015 (1.008-1.030) Urine Protein Trace (NEGATIVE) mg/dL Urine Glucose (UA) Normal (NEGATIVE) mg/dL Urine Ketones 15 H (NEGATIVE) mg/dL Urine Occult Blood Large (NEGATIVE) Urine Nitrite Negative (NEGATIVE) Urine Bilirubin Small (NEGATIVE) Urine Urobilinogen 1 (NORMAL) mg/dL Ur Leukocyte Esterase Large (NEGATIVE) Urine RBC 20-30 H (0-5) Urine WBC 20-30 H (0-5) Ur Epithelial Cells Moderate Amorphous Sediment Numerous Urine Bacteria Moderate Urine Mucus Few 10/08/17 Range/Units 04:18 WBC (4.5-11.0) K/uL RBC (3.30-5.50) M/uL Hgb (12.0-15.0) g/dL Hct (36.0-48.0) % MCV (80-98) fL MCH (27-31) pg MCHC (32-36) % Plt Count (150-400) K/uL Sodium (140-148) mmol/L Potassium (3.6-5.2) mmol/L Chloride (100-108) mmol/L Carbon Dioxide (21-32) mmol/L Anion Gap (5.0-14.0) mmol/L BUN (7-18) mg/dL Creatinine (0.6-1.0) mg/dL Est Cr Clr Drug Dosing mL/min Estimated GFR (MDRD) (>60) Glucose (74-106) mg/dL Calcium (8.5-10.1) mg/dL Lipase (73-393) U/L Urine Color Urine Appearance Urine pH (4.5-8.0) Ur Specific [place] (1.008-1.030) Urine Protein (NEGATIVE) mg/dL Urine Glucose (UA) (NEGATIVE) mg/dL Urine Ketones (NEGATIVE) mg/dL Urine Occult Blood (NEGATIVE) Urine Nitrite (NEGATIVE) Urine Bilirubin (NEGATIVE) Urine Urobilinogen (NORMAL) mg/dL Ur Leukocyte Esterase (NEGATIVE) Urine RBC (0-5) Urine WBC (0-5) Ur Epithelial Cells Amorphous Sediment Urine Bacteria Urine Mucus Med Orders - Current: Current Medications Acetaminophen (Tylenol) 650 mg PO Q4H PRN PRN Reason: Pain (Mild 1-3)/fever Last Admin: 10/08/17 09:02 Dose: 650 mg Amoxicillin/Clavulanate Potassium (Augmentin 875 Mg/125 Mg) 1 tab PO BID [facility] Last Admin: 10/08/17 08:58 Dose: 1 tab Atorvastatin Calcium (Lipitor) 10 mg PO BEDTIME [facility] Last Admin: 10/07/17 21:19 Dose: 10 mg Fentanyl (Sublimaze) 50 mcg IVPUSH Q2H PRN PRN Reason: Pain (severe 7-10) Last Admin: 10/08/17 10:07 Dose: 50 mcg Hydrochlorothiazide (Hydrochlorothiazide) 12.5 mg PO DAILY [facility] Last Admin: 10/08/17 08:58 Dose: 12.5 mg Lactobacillus Rhamnosus (Culturelle) 1 cap PO BID [facility] Last Admin: 10/08/17 08:58 Dose: 1 cap Lisinopril (Prinivil) 10 mg PO DAILY [facility] Last Admin: 10/08/17 08:58 Dose: 10 mg Lorazepam (Ativan) 0.5 - 1 mg IVPUSH Q4H PRN PRN Reason: Nausea/Vomiting Ondansetron HCl (Zofran Odt) 4 mg PO Q6H PRN PRN Reason: Nausea able to take PO Ondansetron HCl (Zofran) 4 mg IV Q6H PRN PRN Reason: Nausea/Vomiting Oxycodone HCl (Oxycodone) 5 - 10 mg PO Q4H PRN PRN Reason: Pain Pantoprazole Sodium (Protonix) 40 mg PO ACBREAKFAST [facility] Last Admin: 10/08/17 07:18 Dose: 40 mg Polyethylene Glycol (Miralax) 17 gm PO DAILY PRN PRN Reason: Constipation Quetiapine Fumarate (Seroquel) 100 mg PO BEDTIME [facility] Last Admin: 10/07/17 21:19 Dose: 100 mg Discontinued Medications Sodium Chloride (Normal Saline) 1,000 mls @ 999 mls/hr IV ASDIRECTED [facility] Last Admin: 10/07/17 12:32 Dose: 999 mls/hr Potassium Chloride/Sodium Chloride (Normal Saline With 40 Meq Kcl) 1,000 mls @ 250 mls/hr IV ASDIRECTED [facility] Sodium Chloride (Normal Saline) 1,000 mls @ 125 mls/hr IV ASDIRECTED [facility] Last Admin: 10/08/17 05:49 Dose: 125 mls/hr Potassium Chloride 20 meq/Lidocaine HCl 2 ml/ Sodium Chloride 112 mls @ 50 mls/ hr IV Q2H [facility] Stop: 10/07/17 19:59 Last Admin: 10/07/17 17:37 Dose: 50 mls/hr Morphine Sulfate (Morphine) 2 mg IVPUSH ONETIME ONE Stop: 10/07/17 12:42 Last Admin: 10/07/17 13:02 Dose: 2 mg Morphine Sulfate (Morphine) 2 mg IVPUSH ONETIME ONE Stop: 10/07/17 14:17 Last Admin: 10/07/17 15:05 Dose: 2 mg Morphine Sulfate (Morphine) 2 mg IVPUSH Q2H PRN PRN Reason: Pain (severe 7-10) Last Admin: 10/07/17 23:07 Dose: 2 mg Ondansetron HCl (Zofran) 4 mg IVPUSH ONETIME ONE Stop: 10/07/17 10:39 Last Admin: 10/07/17 12:32 Dose: 4 mg Ondansetron HCl (Zofran) 4 mg IVPUSH ONETIME ONE Stop: 10/07/17 13:34 Last Admin: 10/07/17 13:49 Dose: 4 mg Oxycodone HCl (Oxycodone) 5 mg PO Q4H PRN PRN Reason: Pain Last Admin: 10/08/17 09:01 Dose: 5 mg Sodium Biphosphate/Sodium Phosphate (Fleet Enema) 133 ml RECTAL ONETIME ONE Stop: 10/07/17 16:21 Last Admin: 10/07/17 17:44 Dose: 1 enema - Exam Quality Assessment: No: Supplemental Oxygen General: Alert, Oriented, Cooperative, No Acute Distress Lungs: Normal Respiratory Effort GI/Abdominal Exam: Soft (no malleolus next), No Distention, Tender Extremities: No Pedal Edema Psy/Mental Status: Alert, Normal Affect - Problem List & Annotations (1) Abdominal pain SNOMED Code(s): 06035943 Code(s): R10.9 - UNSPECIFIED ABDOMINAL PAIN Status: Resolved Current Visit: No Qualifiers: Abdominal location: lower abdomen, unspecified Qualified Code(s): R10.30 - Lower abdominal pain, unspecified (2) Constipation SNOMED Code(s): 37587534 Code(s): K59.00 - CONSTIPATION, UNSPECIFIED Status: Acute Current Visit: Yes Qualifiers: Constipation type: unspecified constipation type Qualified Code(s): K59.00 - Constipation, unspecified (3) Hypokalemia SNOMED Code(s): 82981347 Code(s): E87.6 - HYPOKALEMIA Status: Acute Current Visit: Yes - Problem List Review Problem List Initiated/Reviewed/Updated: Yes - My Orders Last 24 Hours: My Active Orders 10/07/17 14:49 Resuscitation Status Routine 10/07/17 16:20 Patient Status [ADT] Routine Intake and Output [RC] QSHIFT Notify Provider Vital Signs [RC] ASDIRECTED Oxygen Therapy [RC] PRN Up ad Ryann [RC] ASDIRECTED VTE/DVT Education [RC] Per Unit Routine Vital Signs [RC] Q4H Acetaminophen [Tylenol] 650 mg PO Q4H PRN LORazepam [Ativan] 0.5 - 1 mg IVPUSH Q4H PRN Ondansetron [Zofran ODT] 4 mg PO Q6H PRN Ondansetron [Zofran] 4 mg IV Q6H PRN Polyethylene Glycol 3350 [MiraLAX] 17 gm PO DAILY PRN Sequential Compression Device [OM.PC] Per Unit Routine 10/07/17 19:50 UA W/MICROSCOPIC [URIN] Routine 10/07/17 21:00 Amoxicillin/Clavulanate K [Augmentin 875 MG/125 MG] 1 tab PO BID Lactobacillus Rhamnosus GG [Culturelle] 1 cap PO BID atorvaSTATin [Lipitor] 10 mg PO BEDTIME 10/08/17 07:30 Pantoprazole [ProTONIX] 40 mg PO ACBREAKFAST 10/08/17 09:00 Lisinopril [Prinivil] 10 mg PO DAILY hydroCHLOROthiazide 12.5 mg PO DAILY 10/08/17 12:02 oxyCODONE 5 - 10 mg PO Q4H PRN Convert IV to Saline Lock [OM.PC] Routine 10/08/17 21:00 QUEtiapine [SEROquel] 100 mg PO BEDTIME 10/08/17 Breakfast Clear Liquid Diet [DIET] - Plan Plan:: ASSESSMENT AND PLAN - Abdominal pain with nausea and vomiting - CT suggestive of possible ileus as well as significant stool throughout the colon. significant improvement following enema last night the abdominal pain has not resolved. unclear if residual pain is related to some residual colitis or if this is still related to her significant constipation. -Pain control -nausea control -advance diet as tolerated Hypokalemia - potassium has improved with supplementation. -repeat level in the morning Hypercalcemia - mild and did resolve with IV fluid hydration. Recent left-sided colitis - mild ongoing pain that feels somewhat similar to previous colitis pain. Not having fevers. No significant medications hip. -Continue antibiotics Maintenance issues - - DVT prophylaxis - mechanical - GI prophylaxis - PPI - Nutrition - clear liquids, advance if tolerated - Singh catheter - not indicated Disposition - I would anticipate discharge to homeafter the hospital stay Primary care physician - Sarah Tobar M.D.
[2017-10-08] MEDS: oxyCODONE 5 MG Tab PO PRN ×3 (13:01→21:09)
[2017-10-08] MEDS: QUEtiapine 100 MG Tab PO SCH (21:08)
[2017-10-08] MEDS: atorvaSTATin 10 MG Tab PO SCH (21:08)
[2017-10-09] MEDS: Acetaminophen 325 MG Tab PO PRN ×2 (02:41→08:06)
[2017-10-09] MEDS: oxyCODONE 5 MG Tab PO PRN ×2 (02:41→08:06)
[2017-10-09] MEDS: Pantoprazole 40 MG Tab.CR PO SCH (08:05)
[2017-10-09] MEDS: Hydrochlorothiazide 12.5 MG Cap PO SCH (08:07)
[2017-10-09] MEDS: Amoxicillin/Clavulanate K 875-125 MG Tab PO SCH (08:07)
[2017-10-09] MEDS: Lactobacillus Rhamnosus GG (Probiotic) Cap PO SCH (08:07)
[2017-10-09] MEDS: Lisinopril 10 MG Tab PO SCH (10:21)
[2017-10-09 10:35] VITALS: BP 109/70
--- NOTE | 2017-10-09 10:57 | PCM.DCSUM1 ---
Discharge Summary - Hospital Course Brief History: 46 -year-old female with recent treatment for colitis who presented with generalized lower abdominal pain with nausea and vomiting. She was admitted for management of severe abdominal pain and hypokalemia. Diagnosis: Stroke: No - Discharge Data Discharge Date: 10/09/17 Discharge Disposition: Home, Self-Care 01 Condition: Good - Discharge Diagnosis/Problem(s) (1) Abdominal pain SNOMED Code(s): 94578252 ICD Code: R10.9 - UNSPECIFIED ABDOMINAL PAIN Status: Resolved Current Visit: No Qualifiers: Abdominal location: lower abdomen, unspecified Qualified Code(s): R10.30 - Lower abdominal pain, unspecified (2) Constipation SNOMED Code(s): 70343890 ICD Code: K59.00 - CONSTIPATION, UNSPECIFIED Status: Acute Current Visit : Yes Qualifiers: Constipation type: unspecified constipation type Qualified Code(s): K59.00 - Constipation, unspecified (3) Hypokalemia SNOMED Code(s): 32157248 ICD Code: E87.6 - HYPOKALEMIA Status: Acute Current Visit: Yes - Patient Summary/Data Hospital Course: Jodi presented to the ER with lower abdominal pain, nausea and vomiting. She had not had a bowel movement in nearly a week. Workup in the emergency room included laboratory studies and an x-ray of the abdomen as well as CT of the abdomen. Laboratory studies revealed leukocytosis, mild hypokalemia and mild hypercalcemia. A CT scan of the abdomen and pelvis revealed significant constipation with a large amount of stool throughout the colon and a possible ileus. Given the nausea and vomiting she was not thought to be safe for outpatient management so she was admitted for observation. She received an enema shortly after admission and had good results with several large bowel movements. Her nausea and vomiting resolved after the large bowel movements. She was started on clear liquids which she tolerated well with no vomiting. She did have some ongoing abdominal pain in the lower quadrants though this did improve overnight. Given the ongoing and fairly impressive pain we elected to keep her second day for additional pain control. White blood cell count had been trending down and was down to 13,000 from 25,000 on admission. We did continue her antibiotic treatment for colitis which was diagnosed about a week ago. Overnight the second night her pain continued to improve. On the morning of discharge her pain has improved significantly but has not quite resolved. She has not had any fevers. She has tolerated liquids well but thinks that she will stick with liquids for a couple of days before trying to advance her diet. She feels well enough for discharge home and I believe she is safe for outpatient management at this time. She will continue her antibiotics for colitis through the weekend but then will discontinue their use. She will follow -up next week if symptoms do not continue to get better or if they get worse. - Patient Instructions Diet: Full Liquid Diet Diet, Other: start with a liquid diet and slowly advance to usual diet Activity: As Tolerated Driving: Do Not Drive (if taking pain pills) Showering/Bathing: May Shower Notify Provider of: Fever, Increased Pain, Nausea and/or Vomiting Other/Special Instructions: 1. You were in the hospital for management of lower abdominal pain caused by severe constipation with probable contribution from some residual colitis. your symptoms have been improving following bowel stimulation and several bowel movements. I would recommend that you continue your antibiotics through the weekend but can discontinue after Thursday. You can use acetaminophen or ibuprofen for mild pain and I have provided a limited prescription of oxycodone for moderate pain. You could consider taking a stool softener for several days to help avoid additional difficulties with constipation. 2. Continue your usual home medications as previously prescribed. 3. Seek medical attention if you develop fever greater than 101, you have severe abdominal pain, persistent vomiting or severe diarrhea. - Discharge Plan *PRESCRIPTION DRUG MONITORING PROGRAM REVIEWED*: Not Applicable *COPY OF PRESCRIPTION DRUG MONITORING REPORT IN PATIENT CAIN: Not Applicable Prescriptions/Med Rec: oxyCODONE 5 mg PO Q4H PRN #10 tablet PRN Reason: Pain Home Medications: Home Meds MV,Ca,Min/Iron Fum/FA/Vit K [Multi For Her Tablet] 1 tab PO DAILY 05/03/14 [ History] QUEtiapine [SEROquel] 100 mg PO DAILY 05/03/14 [History] Lisinopril/Hydrochlorothiazide [Zestoretic 10-12.5 mg Tablet] 1 each PO DAILY [History] atorvaSTATin [Lipitor] 10 mg PO BEDTIME 09/04/16 [History] Omeprazole 20 mg PO DAILY 10/15/16 [History] Amoxicillin/Potassium Clav [Augmentin 875-125 Tablet] 1 each PO BID #14 tablet 10/01/17 [Rx] Lactobacillus Acidophilus [Acidophilus Lactobacilli] 1 each PO BID #60 capsule 10/01/17 [Rx] oxyCODONE 5 mg PO Q4H PRN #10 tablet 10/09/17 [Rx] Patient Handouts: Oxycodone tablets or capsules, Constipation, Adult, Easy-to- Read Referrals: PCP,None [Primary Care Provider] - (f/u as needed if symptoms do not continue to get better) - Discharge Summary/Plan Comment DC Time >30 min.: No - Patient Data Vitals - Most Recent: Last Vital Signs Temp 36.3 C 10/09/17 10:33 Pulse 84 10/09/17 10:33 Resp 16 10/09/17 10:33 BP 109/70 10/09/17 10:33 Pulse Ox 98 10/09/17 10:33 Weight - Most Recent: 60.101 kg I&O - Last 24 hours: Intake & Output 10/08/17 10/09/17 10/09/17 22:59 06:59 14:59 Intake Total 480 Balance 480 Med Orders - Current: Current Medications Acetaminophen (Tylenol) 650 mg PO Q4H PRN PRN Reason: Pain (Mild 1-3)/fever Last Admin: 10/09/17 08:06 Dose: 325 mg Amoxicillin/Clavulanate Potassium (Augmentin 875 Mg/125 Mg) 1 tab PO BID [facility] Last Admin: 10/09/17 08:07 Dose: 1 tab Atorvastatin Calcium (Lipitor) 10 mg PO BEDTIME [facility] Last Admin: 10/08/17 21:08 Dose: 10 mg Fentanyl (Sublimaze) 50 mcg IVPUSH Q2H PRN PRN Reason: Pain (severe 7-10) Last Admin: 10/08/17 16:39 Dose: 50 mcg Hydrochlorothiazide (Hydrochlorothiazide) 12.5 mg PO DAILY [facility] Last Admin: 10/09/17 08:07 Dose: 12.5 mg Lactobacillus Rhamnosus (Culturelle) 1 cap PO BID [facility] Last Admin: 10/09/17 08:07 Dose: 1 cap Lisinopril (Prinivil) 10 mg PO DAILY [facility] Last Admin: 10/09/17 10:21 Dose: Not Given Lorazepam (Ativan) 0.5 - 1 mg IVPUSH Q4H PRN PRN Reason: Nausea/Vomiting Ondansetron HCl (Zofran Odt) 4 mg PO Q6H PRN PRN Reason: Nausea able to take PO Ondansetron HCl (Zofran) 4 mg IV Q6H PRN PRN Reason: Nausea/Vomiting Oxycodone HCl (Oxycodone) 5 - 10 mg PO Q4H PRN PRN Reason: Pain Last Admin: 10/09/17 08:06 Dose: 10 mg Pantoprazole Sodium (Protonix) 40 mg PO ACBREAKFAST [facility] Last Admin: 10/09/17 08:05 Dose: 40 mg Polyethylene Glycol (Miralax) 17 gm PO DAILY PRN PRN Reason: Constipation Quetiapine Fumarate (Seroquel) 100 mg PO BEDTIME [facility] Last Admin: 10/08/17 21:08 Dose: 100 mg Discontinued Medications Sodium Chloride (Normal Saline) 1,000 mls @ 999 mls/hr IV ASDIRECTED [facility] Last Admin: 10/07/17 12:32 Dose: 999 mls/hr Potassium Chloride/Sodium Chloride (Normal Saline With 40 Meq Kcl) 1,000 mls @ 250 mls/hr IV ASDIRECTED [facility] Sodium Chloride (Normal Saline) 1,000 mls @ 125 mls/hr IV ASDIRECTED [facility] Last Admin: 10/08/17 05:49 Dose: 125 mls/hr Potassium Chloride 20 meq/Lidocaine HCl 2 ml/ Sodium Chloride 112 mls @ 50 mls/ hr IV Q2H [facility] Stop: 10/07/17 19:59 Last Admin: 10/07/17 17:37 Dose: 50 mls/hr Morphine Sulfate (Morphine) 2 mg IVPUSH ONETIME ONE Stop: 10/07/17 12:42 Last Admin: 10/07/17 13:02 Dose: 2 mg Morphine Sulfate (Morphine) 2 mg IVPUSH ONETIME ONE Stop: 10/07/17 14:17 Last Admin: 10/07/17 15:05 Dose: 2 mg Morphine Sulfate (Morphine) 2 mg IVPUSH Q2H PRN PRN Reason: Pain (severe 7-10) Last Admin: 10/07/17 23:07 Dose: 2 mg Ondansetron HCl (Zofran) 4 mg IVPUSH ONETIME ONE Stop: 10/07/17 10:39 Last Admin: 10/07/17 12:32 Dose: 4 mg Ondansetron HCl (Zofran) 4 mg IVPUSH ONETIME ONE Stop: 10/07/17 13:34 Last Admin: 10/07/17 13:49 Dose: 4 mg Oxycodone HCl (Oxycodone) 5 mg PO Q4H PRN PRN Reason: Pain Last Admin: 10/08/17 09:01 Dose: 5 mg Sodium Biphosphate/Sodium Phosphate (Fleet Enema) 133 ml RECTAL ONETIME ONE Stop: 10/07/17 16:21 Last Admin: 10/07/17 17:44 Dose: 1 enema - Exam Quality Assessment: Denies: Supplemental Oxygen General: Reports: Alert, Oriented, Cooperative, No Acute Distress Lungs: Reports: Normal Respiratory Effort GI/Abdominal Exam: Soft, No Distention Extremities: No Pedal Edema Skin: Reports: Warm, Dry Psy/Mental Status: Reports: Alert, Normal Affect
== END 2017-10-09 12:34 | disposition home or self-care (01) ==
LOC: JP.ED 09:55 → JP.MS 14:48
PROVIDERS: ADMIT Internal Medicine; ATTEND Internal Medicine
DX: R10.30 Lower abdominal pain, unspecified (principal); R11.2 Nausea with vomiting, unspecified; E87.6 Hypokalemia; E83.52 Hypercalcemia; K59.00 Constipation, unspecified; K52.9 Noninfective gastroenteritis and colitis, unspecified; I10 Essential (primary) hypertension; Z79.2 Long term (current) use of antibiotics; Z79.899 Other long term (current) drug therapy; Z88.1 Allergy status to other antibiotic agents; Z88.5 Allergy status to narcotic agent; Z88.6 Allergy status to analgesic agent; Z87.891 Personal history of nicotine dependence
CPT/HCPCS: 36415; 74022; 74176; 80048; 80053; 81001; 83690; 85025; 85027; 96361; 96374; 96376; 99285; A9270; J2270; J2405; J3010; J3480; J7030

== ENCOUNTER 2018-06-13 10:27 | Emergency (ER) | payer OTHER ==
[2018-06-13] MEDS ORDERED: predniSONE 20 MG Tab PO ONE (10:34)
[2018-06-13] MEDS ORDERED: diphenhydrAMINE 25 MG Cap PO ONE (10:34)
[2018-06-13] MEDS ORDERED: EPINEPHrine 1 MG/ML SDV IM ONE (10:38)
[2018-06-13] MEDS ORDERED: Ondansetron 4 MG/2 ML SDV IVPUSH ONE (10:39)
[2018-06-13] MEDS ORDERED: methylPREDNISolone Sodium Succinate 125 MG/2 ML SDV IVPUSH ONE (10:40)
[2018-06-13] MEDS ORDERED: diphenhydrAMINE 50 MG/ML SDV IVPUSH ONE (10:40)
[2018-06-13] MEDS ORDERED: Lactated Ringers 1,000 ML IV ONE (10:41)
--- NOTE | 2018-06-13 10:41 | EDM.PDOC ---
ED HPI GENERAL MEDICAL PROBLEM - General Chief Complaint: Allergic Reaction Stated Complaint: REACTION TO SOMETHING Time Seen by Provider: 06/13/18 10:30 Source of Information: Reports: Patient, Family History Limitations: Reports: No Limitations - History of Present Illness INITIAL COMMENTS - FREE TEXT/NARRATIVE: 47 yo female took one of her 's amoxicillin pills this morning for URI sx 's. About an hour later she began to experience trouble with swallowing and breathing. Her drove her to the ER garage and she was rushed to the ER room. agrees her lips looks swollen. She has no hx of allergy to PCN. She denies itching. No self tx before arrival. Onset: Today Onset Date: 06/13/18 Onset Time: 10:00 Duration: Minutes: Location: Reports: Face, Neck Quality: Reports: Other (no pain) Severity: Moderate Improves with: Reports: None Worsens with: Reports: Other (time) Context: Reports: Other (See HPI) Associated Symptoms: Reports: Cough (preceded today's allergic rxn. ). 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 (see below) (none) - Related Data Allergies Allergy/AdvReac Type Severity Reaction Status Date / Time ciprofloxacin Allergy Intermediate unknown Verified 06/13/18 10:33 hydromorphone [Hydromorphone] Allergy Intermediate Rash Verified 06/13/18 10:33 ketorolac Allergy abd pain Verified 06/13/18 10:33 Home Meds: Home Meds MV,Ca,Min/Iron Fum/FA/Vit K [Multi For Her Tablet] 1 tab PO DAILY 05/03/14 [ History] QUEtiapine [SEROquel] 100 mg PO DAILY 05/03/14 [History] Lisinopril/Hydrochlorothiazide [Zestoretic 10-12.5 mg Tablet] 1 each PO DAILY [History] Omeprazole 20 mg PO DAILY 10/15/16 [History] Lactobacillus Acidophilus [Acidophilus Lactobacilli] 1 each PO BID #60 capsule 10/01/17 [Rx] atorvaSTATin Calcium [Atorvastatin Calcium] 10 mg PO BEDTIME 06/13/18 [History] Past Medical History Cardiovascular History: Reports: Hypertension Gastrointestinal History: Reports: Other (See Below) Other Gastrointestinal History: colitis [employer]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 History: Reports: 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, Musculoskeletal History: Reports: Other (See Below) Other Musculoskeletal History: s/p cervical surgery - Infectious Disease History Infectious Disease History: Reports: Chicken Pox - Past Surgical History HEENT Surgical History: Reports: Oral Surgery Other HEENT Surgeries/Procedures: wisdom teeth GI Surgical History: Reports: Appendectomy Other GI Surgeries/Procedures: HX OF COLITIS Female Surgical History: Reports: Hysterectomy Neurological Surgical History: Reports: C-Spine Social & Family History - Family History Family Medical History: Noncontributory - Caffeine Use Caffeine Use: Reports: Coffee, Soda ED ROS ALLERGIC REACTION - Review of Systems Review Of Systems: See Below Constitutional: Reports: No Symptoms HEENT: Reports: Rhinitis (preceded today's events), Throat Swelling. Denies: Throat Pain Respiratory: Denies: Shortness of Breath, Wheezing, Pleuritic Chest Pain, Cough , Sputum, Hemoptysis Cardiovascular: Reports: No Symptoms Endocrine: Reports: No Symptoms GI/Abdominal: Reports: Nausea, Vomiting (on arrival ) : Reports: No Symptoms Musculoskeletal: Reports: No Symptoms Skin: Reports: No Symptoms ED EXAM GENERAL NO PERIP PULSE - Physical Exam Exam: See Below Exam Limited By: No Limitations General Appearance: Alert, WD/WN, No Apparent Distress Eye Exam: Bilateral Eye: Normal Inspection Ears: Normal External Exam, Normal Canal, Hearing Grossly Normal, Normal TMs Nose: Normal Inspection, No Blood Throat/Mouth: Normal Inspection, Normal Lips Head: Atraumatic, Normocephalic Neck: Normal Inspection, Supple, Non-Tender Respiratory/Chest: No Respiratory Distress, Lungs Clear, Normal Breath Sounds, No Accessory Muscle Use, Chest Non-Tender Cardiovascular: Regular Rate, Rhythm GI/Abdominal: Normal Bowel Sounds, Soft, Non-Tender, No Distention Back Exam: Normal Inspection. No: CVA Tenderness (R), CVA Tenderness (L) Extremities: Normal Inspection, Normal Range of Motion, Non-Tender, No Pedal Edema Neurological: Alert, Oriented, CN II-XII Intact, Normal Cognition, No Motor/ Sensory Deficits Psychiatric: Normal Affect, Normal Mood Skin Exam: Warm, Dry, Intact, Normal Color, No Rash Lymphatic: No Adenopathy Course - Vital Signs Last Recorded V/S: Last Vital Signs Temp 35.4 C 06/13/18 10:40 Pulse 89 06/13/18 12:22 Resp 16 06/13/18 12:22 BP 101/65 06/13/18 12:22 Pulse Ox 96 06/13/18 12:22 - Orders/Labs/Meds Meds: Medications Discontinued Medications Generic Name Dose Route Start Last Admin Trade Name Sangeeta PRN Reason Stop Dose Admin Diphenhydramine HCl 50 mg 06/13/18 10:34 06/13/18 10:38 Benadryl PO 06/13/18 10:35 50 mg ONETIME ONE Administration Diphenhydramine HCl 50 mg 06/13/18 10:40 06/13/18 10:44 Benadryl IVPUSH 06/13/18 10:41 50 mg ONETIME ONE Administration Epinephrine HCl 1 mg 06/13/18 10:38 06/13/18 10:44 Adrenalin IM 06/13/18 10:39 1 mg ONETIME ONE Administration Lactated Ringer's 1,000 mls @ 1,000 mls/hr 06/13/18 10:41 06/13/18 10:52 Ringers, Lactated IV 06/13/18 11:40 1,000 mls/hr BOLUS ONE Administration Methylprednisolone Sodium Succinate 125 mg 06/13/18 10:40 06/13/18 10:45 Solu-Medrol IVPUSH 06/13/18 10:41 125 mg ONETIME ONE Administration Ondansetron HCl 8 mg 06/13/18 10:39 06/13/18 10:53 Zofran IVPUSH 06/13/18 10:40 8 mg ONETIME ONE Administration Prednisone 40 mg 06/13/18 10:34 06/13/18 10:38 Prednisone PO 06/13/18 10:35 40 mg ONETIME ONE Administration - Re-Assessments/Exams Free Text/Narrative Re-Assessment/Exam: 06/13/18 12:33 Much better after tx in the ER. Departure - Departure Time of Disposition: 12:40 Disposition: Home, Self-Care 01 Condition: Fair Clinical Impression: Allergic reaction caused by a drug Qualifiers: Encounter type: initial encounter Qualified Code(s): T78.40XA - Allergy, unspecified, initial encounter - Discharge Information *PRESCRIPTION DRUG MONITORING PROGRAM REVIEWED*: No *COPY OF PRESCRIPTION DRUG MONITORING REPORT IN PATIENT CAIN: No Instructions: Anaphylactic Reaction, Adult, Allergies, Adult, [id number] Referrals: Kati Pulliam CNM [Primary Care Provider] - Forms: ED Department Discharge Additional Instructions: Continue diphenhydramine 50 mg every 4 hrs today, then as needed after today. Rest today. Return here if worse. Do not take any penicillin derivative in the future.
[2018-06-13 12:23] VITALS: BP 101/65
== END 2018-06-13 13:01 | disposition home or self-care (01) ==
LOC: JP.ED 10:27
DX: R06.02 Shortness of breath (principal); R22.0 Localized swelling, mass and lump, head; T36.0X5A Adverse effect of penicillins, initial encounter; I10 Essential (primary) hypertension; R13.10 Dysphagia, unspecified; Z88.1 Allergy status to other antibiotic agents; Z88.5 Allergy status to narcotic agent; Z79.899 Other long term (current) drug therapy
CPT/HCPCS: 96361; 96372; 96374; 96375; 99282; A9270; J0171; J1200; J2405; J2930; J7120

== ENCOUNTER 2018-10-16 08:53 | Emergency (ER) | payer OTHER ==
[2018-10-16] MEDS ORDERED: Sodium Chloride 0.9% 10 ML Syringe FLUSH PRN (09:29)
[2018-10-16] MEDS ORDERED: Ondansetron 4 MG/2 ML SDV IVPUSH ONE (09:30)
[2018-10-16] MEDS ORDERED: Lactated Ringers 1,000 ML IV SCH (09:30)
--- NOTE | 2018-10-16 09:32 | EDM.PDOC ---
ED HPI GENERAL MEDICAL PROBLEM - General Chief Complaint: Gastrointestinal Problem Stated Complaint: maybe colon infection???bleeding Time Seen by Provider: 10/16/18 09:23 Source of Information: Reports: Patient, Family, Old Records, RN Notes Reviewed History Limitations: Reports: No Limitations - History of Present Illness INITIAL COMMENTS - FREE TEXT/NARRATIVE: 47-year-old female presents emergency department today complaint of abdominal pain, she has a known history of microscopic colitis follows with gastroenterology out of [place]. She states this particular event started last night crampy abdominal pain and bloody diarrhea with nausea and vomiting. She states this episode feels similar to prior episodes Lower Abdominal Pain Score (Numeric/FACES): 10 - Related Data Allergies Allergy/AdvReac Type Severity Reaction Status Date / Time ciprofloxacin Allergy Intermediate unknown Verified 10/16/18 09:13 hydromorphone [Hydromorphone] Allergy Intermediate Rash Verified 10/16/18 09:13 ketorolac Allergy abd pain Verified 10/16/18 09:13 Home Meds: Home Meds MV,Ca,Min/Iron Fum/FA/Vit K [Multi For Her Tablet] 1 tab PO DAILY 05/03/14 [ History] QUEtiapine [SEROquel] 100 mg PO DAILY 05/03/14 [History] Lisinopril/Hydrochlorothiazide [Zestoretic 10-12.5 mg Tablet] 1 each PO DAILY [History] Omeprazole 20 mg PO DAILY 10/15/16 [History] Lactobacillus Acidophilus [Acidophilus Lactobacilli] 1 each PO BID #60 capsule 10/01/17 [Rx] atorvaSTATin Calcium [Atorvastatin Calcium] 10 mg PO BEDTIME 06/13/18 [History] Past Medical History Cardiovascular History: Reports: Hypertension Gastrointestinal History: Reports: Other (See Below) Other Gastrointestinal History: Microscopic colitis 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: Reports: 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, Musculoskeletal History: Reports: Other (See Below) Other Musculoskeletal History: s/p cervical surgery - Infectious Disease History Infectious Disease History: Reports: Chicken Pox - Past Surgical History HEENT Surgical History: Reports: Oral Surgery Other HEENT Surgeries/Procedures: wisdom teeth GI Surgical History: Reports: Appendectomy Other GI Surgeries/Procedures: HX OF COLITIS Female Surgical History: Reports: Hysterectomy Neurological Surgical History: Reports: C-Spine Social & Family History - Family History Family Medical History: Noncontributory - Tobacco Use Smoking Status *Q: Former Smoker Used Tobacco, but Quit: Yes Month/Year Tobacco Last Used: 0 - Caffeine Use Caffeine Use: Reports: Coffee Other Caffeine Use: a few cups - Recreational Drug Use Recreational Drug Use: No ED ROS GENERAL - Review of Systems Review Of Systems: See Below Constitutional: Reports: Chills. Denies: Fever HEENT: Reports: No Symptoms Respiratory: Reports: No Symptoms Cardiovascular: Reports: No Symptoms GI/Abdominal: Reports: Abdominal Pain, Black Stool, Diarrhea, Nausea, Vomiting : Reports: No Symptoms ED EXAM, GI/ABD - Physical Exam Exam: See Below Exam Limited By: No Limitations General Appearance: Alert, WD/WN, No Apparent Distress Respiratory/Chest: No Respiratory Distress, Lungs Clear, Normal Breath Sounds, No Accessory Muscle Use, Chest Non-Tender Cardiovascular: Regular Rate, Rhythm, No Murmur GI/Abdominal Exam: Normal Bowel Sounds, Soft, No Distention, Tender (Diffusely tender to palpation). No: Guarding, Rigid Course - Vital Signs Last Recorded V/S: Last Vital Signs Temp 97.1 F 10/16/18 09:12 Pulse 88 10/16/18 09:12 Resp 18 10/16/18 09:12 BP 121/82 10/16/18 09:12 Pulse Ox 98 10/16/18 09:12 - Orders/Labs/Meds Orders: Active Orders 24 hr Category Date Time Status Peripheral IV Care [RC] . DIRECTED Care 10/16/18 09:30 Active Lactated Ringers [Ringers, Lactated] 1,000 ml Med 10/16/18 09:30 Active IV ASDIRECTED Sodium Chloride 0.9% [Saline Flush] Med 10/16/18 09:29 Active 10 ml FLUSH ASDIRECTED PRN Peripheral IV Insertion Adult [OM.PC] Urgent Oth 10/16/18 09:29 Ordered Medication Orders Lactated Ringer's (Ringers, Lactated) 1,000 mls @ 999 mls/hr IV ASDIRECTED CATHY Last Admin: 10/16/18 09:44 Dose: 999 mls/hr Sodium Chloride (Saline Flush) 10 ml FLUSH ASDIRECTED PRN PRN Reason: Keep Vein Open Last Admin: 10/16/18 09:44 Dose: 10 ml Labs: Laboratory Tests 10/16/18 10/16/18 10/16/18 Range/Units 09:41 09:41 09:41 WBC 13.2 H (4.5-11.0) K/uL RBC 4.26 (3.30-5.50) M/uL Hgb 13.4 (12.0-15.0) g/dL Hct 38.8 (36.0-48.0) % MCV 91 (80-98) fL MCH 32 H (27-31) pg MCHC 35 (32-36) % Plt Count 381 (150-400) K/uL Neut % (Auto) 88 H (36-66) % Lymph % (Auto) 8 L (24-44) % Dubois % (Auto) 4 (2-6) % Eos % (Auto) 0 L (2-4) % Baso % (Auto) 0 (0-1) % Sodium 134 L (140-148) mmol/L Potassium 4.0 (3.6-5.2) mmol/L Chloride 98 L (100-108) mmol/L Carbon Dioxide 26 (21-32) mmol/L Anion Gap 14.0 (5.0-14.0) mmol/L BUN 18 (7-18) mg/dL Creatinine 0.7 (0.6-1.0) mg/dL Est Cr Clr Drug Dosing 87.51 mL/min Estimated GFR (MDRD) > 60 (>60) Glucose 106 (74-106) mg/dL Lactic Acid 1.4 (0.4-2.0) mmol/L Calcium 9.4 D (8.5-10.1) mg/dL Total Bilirubin 0.4 (0.2-1.0) mg/dL AST 21 (15-37) U/L ALT 32 (12-78) U/L Alkaline Phosphatase 105 (46-116) U/L Total Protein 7.7 (6.4-8.2) g/dL Albumin 4.3 (3.4-5.0) g/dL Globulin 3.4 (2.3-3.5) g/dL Albumin/Globulin Ratio 1.3 (1.2-2.2) Meds: Medications Generic Name Dose Route Start Last Admin Trade Name Freq PRN Reason Stop Dose Admin Lactated Ringer's 1,000 mls @ 999 mls/hr 10/16/18 09:30 10/16/18 09:44 Ringers, Lactated IV 999 mls/hr ASDIRECTED CATHY Administration Sodium Chloride 10 ml 10/16/18 09:29 10/16/18 09:44 Saline Flush FLUSH 10 ml ASDIRECTED PRN Administration Keep Vein Open Discontinued Medications Generic Name Dose Route Start Last Admin Trade Name Freq PRN Reason Stop Dose Admin Fentanyl 50 mcg 10/16/18 10:16 10/16/18 10:22 Sublimaze IVPUSH 10/16/18 10:17 50 mcg ONETIME ONE Administration Hyoscyamine 0.125 mg 10/16/18 09:41 10/16/18 09:50 Hyomax-Sl SL 10/16/18 09:42 0.125 mg ONETIME ONE Administration Ondansetron HCl 4 mg 10/16/18 09:30 10/16/18 09:44 Zofran IVPUSH 10/16/18 09:31 4 mg ONETIME ONE Administration Departure - Departure Time of Disposition: 10:38 Disposition: Home, Self-Care 01 Condition: Fair Clinical Impression: Generalized abdominal pain - Discharge Information Referrals: Kati Pulliam CNM [Primary Care Provider] - Forms: ED Department Discharge Additional Instructions: Take full course of antibiotics, use hydrocodone as needed for pain control, take prednisone tapering dose, Please followup with your primary care provider in 3-5 days if not better, please call return to the emergency department with worsening of symptoms. - My Orders Last 24 Hours: My Active Orders 10/16/18 09:29 Sodium Chloride 0.9% [Saline Flush] 10 ml FLUSH ASDIRECTED PRN Peripheral IV Insertion Adult [OM.PC] Urgent 10/16/18 09:30 Peripheral IV Care [RC] . DIRECTED Lactated Ringers [Ringers, Lactated] 1,000 ml IV ASDIRECTED - Assessment/Plan Last 24 Hours: My Active Orders 10/16/18 09:29 Sodium Chloride 0.9% [Saline Flush] 10 ml FLUSH ASDIRECTED PRN Peripheral IV Insertion Adult [OM.PC] Urgent 10/16/18 09:30 Peripheral IV Care [RC] . DIRECTED Lactated Ringers [Ringers, Lactated] 1,000 ml IV ASDIRECTED Plan: Assessment Acuity = acute Site and laterality = abdominal pain Etiology = probable underlying exacerbation of colitis Manifestations = bloody diarrhea Location of injury = Home Lab values = CBC elevated 13.5 consistent leukocytosis CMP and lactic acid within normal limits Plan Prescription written for hydrocodone 5/325 one tab by mouth 3 times a day when necessary total #10 also Augmentin 875 by mouth twice a day 7 days and then prednisone tapering dose starting at 60 for 3 days 40 for 3 days 20 for 3 days and then 10 for 5 days her follow-up with her primary care in the next 3-5 days if no improvement This note was dictated using [employer] voice recognition software please call with any questions on syntax or grammar.
[2018-10-16] MEDS ORDERED: Hyoscyamine 0.125 MG Tab.SL SL ONE (09:41)
[2018-10-16] MEDS ORDERED: fentaNYL 100 MCG/2 ML SDV IVPUSH ONE (10:16)
[2018-10-16 10:45] VITALS: BP 125/80; PULSE 78
== END 2018-10-16 10:49 | disposition home or self-care (01) ==
LOC: JP.ED 08:53
DX: R10.84 Generalized abdominal pain (principal); R19.7 Diarrhea, unspecified; R11.2 Nausea with vomiting, unspecified; I10 Essential (primary) hypertension; Z98.890 Other specified postprocedural states; Z90.49 Acquired absence of other specified parts of digestive tract; Z90.710 Acquired absence of both cervix and uterus; Z87.891 Personal history of nicotine dependence; Z79.899 Other long term (current) drug therapy; Z88.6 Allergy status to analgesic agent; Z88.1 Allergy status to other antibiotic agents
CPT/HCPCS: 36415; 80053; 83605; 85025; 96361; 96374; 96375; 99284-25; A9270-GY; J2405; J3010; J7120

== ENCOUNTER 2020-12-05 06:29 | Day surgery (SDC) | payer OTHER ==
[2020-12-05] MEDS ORDERED: Sodium Chloride 0.9% 1,000 ML IV SCH (07:00)
[2020-12-05] MEDS ORDERED: Lidocaine 1% with EPINEPHrine 1:100,000 50 ML MDV ONE (07:11)
[2020-12-05] MEDS ORDERED: Bupivacaine 0.5% 50 ML MDV ONE (07:11)
[2020-12-05] MEDS ORDERED: Propofol 200 MG/20 ML SDV ONE ×2 (07:21→07:30)
[2020-12-05] MEDS ORDERED: fentaNYL 100 MCG/2 ML SDV ONE ×2 (07:21→07:49)
[2020-12-05] MEDS ORDERED: Midazolam 1 MG/ML 2 ML SDV ONE (07:21)
[2020-12-05] MEDS ORDERED: metroNIDAZOLE/Normal Saline 500 MG in Premix Bag 1 BAG IV ONE (07:30)
[2020-12-05] MEDS ORDERED: Lidocaine 1% with EPINEPHrine 1:100,000 50 ML MDV INJECT ONE (07:52)
[2020-12-05] MEDS ORDERED: hydrOXYzine HCL 100 MG/2 ML SDV IM ONE (08:44)
[2020-12-05] MEDS ORDERED: fentaNYL 100 MCG/2 ML SDV IVPUSH ONE (08:57)
[2020-12-05] MEDS ORDERED: Acetaminophen/HYDROcodone 325-5 MG Tab PO ONE (10:15)
[2020-12-05 10:20] VITALS: BP 131/80; PULSE 54
--- NOTE | 2020-12-05 13:33 | OR ---
DATE OF PROCEDURE: 12/05/2020 SURGEON: Micheal Lyman MD PROCEDURES: 1. Bilateral rectus sheath blocks. 2. Bilateral transversus abdominis plane blocks. COMPLICATION: None. ASSISTANT DIRECTOR OF PUBLIC WORKS: None. RISKS: Risks, benefits, alternatives including but not limited to infection, bleeding, injury to abdominal structures and other risks not listed here were explained to the patient and she wished to proceed. PROCEDURE IN DETAIL: The patient was placed in supine position. The right transversus plane was identified first. This was accessed using a 21-gauge needle under 13 megahertz ultrasound guidance. 20% of the solution was injected. This was the left side. Bilateral rectus sheaths were then injected also under direct visualization. 20% of the solution was injected respectively. The procedure was then performed in same manner, same fashion, same technique in the same sequence using the same equipment, 20% in each position. At no point was the needle blindly advanced nor advanced to the peritoneum. The patient tolerated the procedure well. Micheal Lyman MD /[id number]
--- NOTE | 2020-12-05 13:33 | OR ---
DATE OF PROCEDURE: 12/05/2020 SURGEON: Micheal Lyman MD PROCEDURE: Open umbilical hernia repair. FINDINGS: Reducible umbilical hernia. RISKS: Risks, benefits, alternatives, and limitations including, but not limited to infection, bleeding, perforation, false positives, and false negatives were explained to the patient and she wished to proceed. We also discussed chronic wounds, recurrence, chronic pain, the use of mesh, and other risks not listed here. PROCEDURE IN DETAIL: The patient was placed in supine position. A midline abdominal incision was made approximately 3 cm in size. This was carried down to the hernia, which was identified in midline with contents extending to the right and anterior. This was reduced. The sac was deflected within the abdomen itself. Also, the fascial edge was opened. The hernia defect itself was approximately 1 cm, thus not requiring mesh repair. The hernias were closed with 2-0 Prolene in an interrupted suture fashion times approximately 3 using the standard 5 mm bites. Subcutaneous tissues were then reapproximated over. The skin was closed with 4-0 Vicryl. Dermabond was applied. The patient tolerated the procedure well. Micheal Lyman MD /[id number]
== END 2020-12-05 10:56 | disposition home or self-care (01) ==
LOC: JP.SDS 06:29
PROVIDERS: ATTEND Surgery
DX: K42.9 Umbilical hernia without obstruction or gangrene (principal); F17.200 Nicotine dependence, unspecified, uncomplicated; I10 Essential (primary) hypertension; K21.9 Gastro-esophageal reflux disease without esophagitis
CPT/HCPCS: 36415; 49585; 80048; 85027; A9270; J0171; J1100; J2250; J2704; J2795; J3010; J3410; J3490; J7030

== ENCOUNTER 2021-08-12 05:38 | Emergency (ER) | payer OTHER ==
[2021-08-12 06:38] LABS: ESTIMATED GFR 105 mL/min (>60)
[2021-08-12] MEDS ORDERED: fentaNYL 100 MCG/2 ML SDV IVPUSH ONE ×2 (07:13→09:12)
[2021-08-12] MEDS ORDERED: Ondansetron 4 MG/2 ML SDV IVPUSH ONE (07:13)
[2021-08-12] MEDS ORDERED: Lactated Ringers 1,000 ML IV ONE (07:14)
[2021-08-12] MEDS ORDERED: Iopamidol 612 MG/ML 100 ML Bottle IV ONE (07:44)
[2021-08-12] MEDS ORDERED: Sodium Chloride 0.9% 50 ML IV SCH (07:45)
[2021-08-12 08:24] VITALS: BP 113/71; PULSE 52
== END 2021-08-12 09:54 | disposition home or self-care (01) ==
LOC: JP.ED 05:38
DX: K52.9 Noninfective gastroenteritis and colitis, unspecified (principal); I10 Essential (primary) hypertension; Z79.899 Other long term (current) drug therapy; Z20.822 Contact with and (suspected) exposure to COVID-19
CPT/HCPCS: 36415; 74177; 80053; 81001; 83605; 84145; 85025; 86140; 87493; 96374; 96375; 96376; 99282; 99284-25; J2405; J3010; J3490; J7120; Q9967

== ENCOUNTER 2021-08-22 06:37 | Day surgery (SDC) | payer OTHER ==
[2021-08-22] MEDS ORDERED: Propofol 200 MG/20 ML SDV ONE ×2 (07:11→08:50)
[2021-08-22] MEDS ORDERED: Midazolam 1 MG/ML 2 ML SDV ONE (07:11)
[2021-08-22] MEDS ORDERED: fentaNYL 100 MCG/2 ML SDV ONE (07:11)
[2021-08-22] MEDS ORDERED: Lactated Ringers 1,000 ML IV SCH (07:45)
[2021-08-22 10:32] VITALS: BP 117/73; PULSE 48
== END 2021-08-22 10:10 | disposition home or self-care (01) ==
LOC: JP.SDS 06:37
PROVIDERS: ATTEND Family Medicine
DX: K63.89 Other specified diseases of intestine (principal); K50.919 Crohn's disease, unspecified, with unspecified complications; I10 Essential (primary) hypertension; K21.9 Gastro-esophageal reflux disease without esophagitis; Z88.0 Allergy status to penicillin; Z88.8 Allergy status to other drugs, medicaments and biological substances
CPT/HCPCS: 45380; J2250; J2704; J3010; J7120

== ENCOUNTER 2022-04-20 22:14 | Emergency (ER) | payer OTHER ==
[2022-04-20 22:28] VITALS: BP 122/77; PULSE 83
== END 2022-04-20 22:49 | disposition home or self-care (01) ==
LOC: JP.ED 22:14
DX: N30.01 Acute cystitis with hematuria (principal); I10 Essential (primary) hypertension; Z88.0 Allergy status to penicillin; Z88.5 Allergy status to narcotic agent; Z88.1 Allergy status to other antibiotic agents; Z88.8 Allergy status to other drugs, medicaments and biological substances; Z87.891 Personal history of nicotine dependence
CPT/HCPCS: 81001; 87086; 87088; 87186; 99282; 99283

== ENCOUNTER 2023-01-14 12:32 | Emergency (ER) | payer OTHER ==
[2023-01-14] MEDS ORDERED: Lactated Ringers 1,000 ML IV ONE (13:57)
[2023-01-14] MEDS ORDERED: Ondansetron 4 MG/2 ML SDV IVPUSH ONE (13:57)
[2023-01-14] MEDS ORDERED: fentaNYL 100 MCG/2 ML SDV IVPUSH ONE ×2 (13:57→15:42)
[2023-01-14] MEDS ORDERED: Sodium Chloride 0.9% 10 ML Syringe FLUSH PRN (13:57)
[2023-01-14] MEDS ORDERED: methylPREDNISolone Sodium Succinate 40 MG/1 ML SDV IVPUSH ONE (14:02)
[2023-01-14 14:09] LABS: BASOPHILS PERCENT AUTO 0.3 % (0.1-1.3); EOSINOPHILS ABSOLUTE AUTO 0.03 K/uL (0.00-0.40); EOSINOPHILS PERCENT AUTO 0.5 % (0.0-5.4); HEMOGLOBIN 11.5 g/dL (11.2-15.5); IMMATURE GRAN PERCENT AUTO 0.3 % (0.0-0.7); LYMPHOCYTES ABSOLUTE AUTO 1.77 K/uL (0.8-3.3); LYMPHOCYTES PERCENT AUTO 29.1 % (11.4-47.7); MEAN CORPUSCULAR HEMOGLOBIN 32.2 pg (31.6-35.5); MEAN CORPUSCULAR HGB CONC 34.8 g/dL (31.6-35.5); MEAN CORPUSCULAR VOLUME 92.4 fL (81.4-99.0); MONOCYTES ABSOLUTE AUTO 0.55 K/uL (0.20-0.90); NEUTROPHILS PERCENT AUTO 60.8 % (40.0-78.1); PLATELET COUNT,PLT 266 K/uL (130-375); RED BLOOD CELL COUNT 3.57 M/uL (3.77-5.24); WHITE BLOOD CELL COUNT,WBC 6.1 K/uL (3.2-11.0)
[2023-01-14 14:10] LABS: BASOPHILS ABSOLUTE AUTO 0.02 K/uL (0.00-0.10); IMMATURE GRAN ABSOLUTE AUTO 0.02 K/uL (0.00-0.23)
[2023-01-14 14:38] LABS: A/G RATIO 1.6 (1.2-2.2); ALANINE AMINOTRANSFERASE,ALT 12 U/L (12-78); ALBUMIN 4.2 g/dL (3.4-5.0); ALKALINE PHOSPHATASE 75 U/L (46-116); ASPARTATE AMNIOTRANSFERASE,AST 17 U/L (15-37); BILIRUBIN TOTAL 0.5 mg/dL (0.2-1.0); BLOOD UREA NITROGEN,BUN 8 mg/dL (7-18); CALCIUM 8.8 mg/dL (8.5-10.1); CARBON DIOXIDE,CO2 27 mmol/L (21-32); CHLORIDE,CL 98 mmol/L (100-108); CREATININE 0.6 mg/dL (0.6-1.0); EST CRCL DRUG DOSING (CG) 88.65 mL/min; ESTIMATED GFR 108 mL/min (>60); GLUCOSE RANDOM 82 mg/dL (74-106); POTASSIUM,K 3.8 mmol/L (3.6-5.2); PROTEIN TOTAL,TP 6.8 g/dL (6.4-8.2); SODIUM,NA 132 mmol/L (140-148)
[2023-01-14 14:39] LABS: ANION GAP 10.8 mmol/L (5.0-14.0)
[2023-01-14 15:02] VITALS: BP 132/79; PULSE 54
[2023-01-14] MEDS ORDERED: Hyoscyamine 0.125 MG Tab.SL SL ONE (15:42)
== END 2023-01-14 16:58 | disposition home or self-care (01) ==
LOC: JP.ED 12:32
DX: K50.919 Crohn's disease, unspecified, with unspecified complications (principal); I10 Essential (primary) hypertension; Z88.0 Allergy status to penicillin; Z88.1 Allergy status to other antibiotic agents; Z88.5 Allergy status to narcotic agent; Z88.6 Allergy status to analgesic agent; Z79.899 Other long term (current) drug therapy; Z90.49 Acquired absence of other specified parts of digestive tract; Z90.710 Acquired absence of both cervix and uterus
CPT/HCPCS: 36415; 80053; 83605; 85025; 86140; 96374; 96375; 96376; 99284; A9270; J2405; J2920; J3010; J3490; J7120

== ENCOUNTER 2023-02-13 13:56 | Emergency (ER) | payer OTHER ==
[2023-02-13 14:18] VITALS: BP 137/88; PULSE 85
[2023-02-13] MEDS ORDERED: Ketorolac 30 MG/ML SDV IM ONE (15:08)
== END 2023-02-13 15:31 | disposition home or self-care (01) ==
LOC: JP.ED 13:56
DX: M79.2 Neuralgia and neuritis, unspecified (principal); B01.9 Varicella without complication; I10 Essential (primary) hypertension; Z88.0 Allergy status to penicillin; Z88.1 Allergy status to other antibiotic agents; Z88.5 Allergy status to narcotic agent; Z88.6 Allergy status to analgesic agent; Z90.49 Acquired absence of other specified parts of digestive tract; Z90.710 Acquired absence of both cervix and uterus
CPT/HCPCS: 96372; 99283; J1885

== ENCOUNTER 2023-05-27 06:33 | Inpatient (IN) | payer OTHER ==
[2023-05-27 07:37] LABS: BASOPHILS PERCENT AUTO 0.1 % (0.1-1.3); HEMATOCRIT 36.1 % (34.3-46.0); IMMATURE GRAN ABSOLUTE AUTO 0.08 K/uL (0.00-0.23); IMMATURE GRAN PERCENT AUTO 0.5 % (0.0-0.7); LYMPHOCYTES ABSOLUTE AUTO 0.29 K/uL (0.8-3.3); LYMPHOCYTES PERCENT AUTO 1.7 % (11.4-47.7); MEAN CORPUSCULAR HEMOGLOBIN 32.1 pg (31.6-35.5); MEAN CORPUSCULAR VOLUME 89.1 fL (81.4-99.0); MONOCYTES ABSOLUTE AUTO 1.07 K/uL (0.20-0.90); MONOCYTES PERCENT AUTO 6.3 % (3.3-12.6); NEUTROPHILS ABSOLUTE AUTO 15.53 K/uL (1.0-7.6); NEUTROPHILS PERCENT AUTO 91.4 % (40.0-78.1); PLATELET COUNT,PLT 309 K/uL (130-375); RED BLOOD CELL COUNT 4.05 M/uL (3.77-5.24)
[2023-05-27 07:41] LABS: BASOPHILS ABSOLUTE AUTO 0.02 K/uL (0.00-0.10)
[2023-05-27] MEDS ORDERED: Naloxone 0.4 MG/ML SDV IVPUSH PRN ×3 (07:46→12:28)
[2023-05-27 07:48] LABS: PROTHROMBIN TIME 9.9 sec (9.2-10.6)
[2023-05-27 07:51] LABS: A/G RATIO 1.6 (1.2-2.2); ALANINE AMINOTRANSFERASE,ALT 20 U/L (12-78); ALBUMIN 4.4 g/dL (3.4-5.0); ALKALINE PHOSPHATASE 87 U/L (46-116); ASPARTATE AMNIOTRANSFERASE,AST 16 U/L (15-37); BILIRUBIN TOTAL 0.6 mg/dL (0.2-1.0); BLOOD UREA NITROGEN,BUN 16 mg/dL (7-18); C-REACTIVE PROTEIN 1.29 mg/dL (<0.50); CALCIUM 9.3 mg/dL (8.5-10.1); CARBON DIOXIDE,CO2 25 mmol/L (21-32); CHLORIDE,CL 98 mmol/L (100-108); CREATININE 0.6 mg/dL (0.6-1.0); EST CRCL DRUG DOSING (CG) 86.39 mL/min; ESTIMATED GFR 108 mL/min (>60); GLUCOSE RANDOM 153 mg/dL (74-106); POTASSIUM,K 3.6 mmol/L (3.6-5.2); PROTEIN TOTAL,TP 7.2 g/dL (6.4-8.2); SODIUM,NA 135 mmol/L (140-148)
[2023-05-27 07:52] LABS: ANION GAP 15.6 mmol/L (5.0-14.0)
[2023-05-27] MEDS: Sodium Chloride 0.9% 1,000 ML IV SCH ×2 (08:01→13:20)
[2023-05-27] MEDS: fentaNYL 100 MCG/2 ML SDV IVPUSH ONE ×2 (08:01→09:54)
[2023-05-27] MEDS: Ondansetron 4 MG/2 ML SDV IVPUSH ONE (08:01)
[2023-05-27 09:00] LABS: CORONAVIRUS COVID-19 NAA NEGATIVE (NEGATIVE); INFLUENZA A NAA NEGATIVE (NEGATIVE); INFLUENZA B NAA NEGATIVE (NEGATIVE); RESPIRATORY SYNCYTIAL VIR NAA NEGATIVE (NEGATIVE)
[2023-05-27] MEDS: Iopamidol 612 MG/ML 100 ML Bottle IV ONE (09:12)
[2023-05-27] MEDS: Sodium Chloride 0.9% 100 ML IV ONE (09:12)
[2023-05-27] MEDS: Sodium Chloride 0.9% 10 ML Syringe FLUSH ONE (09:12)
[2023-05-27 09:57] LABS: HEMATOCRIT 31.6 % (34.3-46.0); HEMOGLOBIN 11.2 g/dL (11.2-15.5); MEAN CORPUSCULAR HGB CONC 35.4 g/dL (31.6-35.5); MEAN CORPUSCULAR VOLUME 90.3 fL (81.4-99.0); RED BLOOD CELL COUNT 3.5 M/uL (3.77-5.24); WHITE BLOOD CELL COUNT,WBC 14.8 K/uL (3.2-11.0)
[2023-05-27] MEDS: methylPREDNISolone Sodium Succinate 125 MG/2 ML SDV IVPUSH ONE (12:22)
[2023-05-27] MEDS ORDERED: Sennosides/Docusate Sodium 50-8.6 MG Tab PO PRN (12:28)
[2023-05-27] MEDS ORDERED: Acetaminophen 325 MG Tab PO PRN (12:28)
[2023-05-27] MEDS ORDERED: fentaNYL 100 MCG/2 ML SDV IVPUSH PRN (12:28)
[2023-05-27] MEDS ORDERED: Ondansetron 4 MG/2 ML SDV IV PRN (12:28)
[2023-05-27] MEDS ORDERED: Ondansetron 4 MG Tab.DIS PO PRN (12:28)
[2023-05-27] MEDS ORDERED: Cyclobenzaprine 10 MG Tab PO PRN (12:28)
[2023-05-27] MEDS ORDERED: Magnesium Hydroxide 400 MG/5 ML Susp 30 ML Cup PO PRN (12:28)
[2023-05-27 12:33] LABS: APPEARANCE,URINE SLIGHTLY CLOUDY (CLEAR); BILIRUBIN,URINE NEGATIVE (NEGATIVE); COLOR,URINE YELLOW (YELLOW); GLUCOSE,URINE NEGATIVE (NEGATIVE); KETONES,URINE NEGATIVE (NEGATIVE); LEUKOCYTE ESTERASE,URINE NEGATIVE (NEGATIVE); NITRITE,URINE NEGATIVE (NEGATIVE); OCCULT BLOOD,URINE MODERATE (NEGATIVE); PROTEIN,URINE NEGATIVE (NEGATIVE); UROBILINOGEN,URINE 0.2 EU/dL (0.2-1.0)
[2023-05-27 12:39] LABS: AMORPHOUS SEDIMENT,URINE RARE; BACTERIA,URINE RARE; EPITHELIAL CELLS,URINE RARE; MUCUS,URINE RARE; WBC,URINE 0-5 (0-5)
[2023-05-27] MEDS: Acetaminophen/HYDROcodone 325-5 MG Tab PO PRN (13:11)
[2023-05-27] MEDS: Gabapentin 300 MG Cap PO SCH (13:12)
[2023-05-27] MEDS: QUEtiapine 25 MG Tab PO SCH (20:29)
[2023-05-27] MEDS: methylPREDNISolone Sodium Succinate 125 MG/2 ML SDV IVPUSH SCH (20:30)
[2023-05-28 05:52] LABS: HEMATOCRIT 28.6 % (34.3-46.0); HEMOGLOBIN 10.2 g/dL (11.2-15.5); MEAN CORPUSCULAR HEMOGLOBIN 32.6 pg (31.6-35.5); MEAN CORPUSCULAR HGB CONC 35.7 g/dL (31.6-35.5); MEAN CORPUSCULAR VOLUME 91.4 fL (81.4-99.0); RED BLOOD CELL COUNT 3.13 M/uL (3.77-5.24); WHITE BLOOD CELL COUNT,WBC 10.8 K/uL (3.2-11.0)
[2023-05-28 06:04] LABS: CALCIUM 8.8 mg/dL (8.5-10.1); CREATININE 0.6 mg/dL (0.6-1.0); EST CRCL DRUG DOSING (CG) 86.39 mL/min; POTASSIUM,K 4.2 mmol/L (3.6-5.2)
[2023-05-28 06:09] LABS: ANION GAP 13.2 mmol/L (5.0-14.0)
[2023-05-28] MEDS: Lisinopril 10 MG Tab PO SCH (08:02)
[2023-05-28] MEDS: Pantoprazole 40 MG Tab.CR PO SCH (08:03)
[2023-05-28] MEDS: Hydrochlorothiazide 12.5 MG Cap PO SCH (08:03)
[2023-05-28] MEDS ORDERED: Non-Formulary Medication 1 Each (Hydrochlorothiazide [Hydrochlorothiazide] 12.5 MG Tablet) PO SCH (09:00)
[2023-05-29 05:46] VITALS: BP 115/78; PULSE 54
[2023-05-29] MEDS: predniSONE 20 MG Tab PO SCH (07:54)
== END 2023-05-29 10:55 | disposition home or self-care (01) | DRG 386 ==
LOC: JP.ED 06:33 → JP.ICU 11:51
PROVIDERS: ADMIT Internal Medicine; ATTEND Internal Medicine
DX: K50.111 Crohn's disease of large intestine with rectal bleeding (principal); K92.1 Melena; I10 Essential (primary) hypertension; M48.02 Spinal stenosis, cervical region; Z66 Do not resuscitate; Z90.710 Acquired absence of both cervix and uterus; Z79.899 Other long term (current) drug therapy; Z90.49 Acquired absence of other specified parts of digestive tract
CPT/HCPCS: 0241U; 36415; 74177; 74177-26; 80048; 80053; 81001; 82272; 83605; 84145; 85018; 85025; 85027; 85610; 85651; 86140; 99222; 99232; 99238; A9270-GY; J2405; J2930; J3010; J3490; J7030; J7512; Q9967

== ENCOUNTER 2023-11-17 13:44 | Observation (INO) | payer OTHER ==
[2023-11-17] MEDS: Ondansetron 4 MG/2 ML SDV IVPUSH ONE (14:53)
[2023-11-17 15:00] LABS: BASOPHILS ABSOLUTE AUTO 0.04 K/uL (0.00-0.10); BASOPHILS PERCENT AUTO 0.3 % (0.1-1.3); EOSINOPHILS ABSOLUTE AUTO 0.07 K/uL (0.00-0.40); EOSINOPHILS PERCENT AUTO 0.5 % (0.0-5.4); HEMATOCRIT 35.7 % (34.3-46.0); HEMOGLOBIN 12.7 g/dL (11.2-15.5); IMMATURE GRAN ABSOLUTE AUTO 0.06 K/uL (0.00-0.23); IMMATURE GRAN PERCENT AUTO 0.4 % (0.0-0.7); LYMPHOCYTES ABSOLUTE AUTO 2.67 K/uL (0.8-3.3); LYMPHOCYTES PERCENT AUTO 18.9 % (11.4-47.7); MEAN CORPUSCULAR HEMOGLOBIN 31.6 pg (31.6-35.5); MEAN CORPUSCULAR HGB CONC 35.6 g/dL (31.6-35.5); MEAN CORPUSCULAR VOLUME 88.8 fL (81.4-99.0); MONOCYTES ABSOLUTE AUTO 0.94 K/uL (0.20-0.90); MONOCYTES PERCENT AUTO 6.6 % (3.3-12.6); NEUTROPHILS ABSOLUTE AUTO 10.36 K/uL (1.0-7.6); NEUTROPHILS PERCENT AUTO 73.3 % (40.0-78.1); PLATELET COUNT,PLT 335 K/uL (130-375); RED BLOOD CELL COUNT 4.02 M/uL (3.77-5.24); WHITE BLOOD CELL COUNT,WBC 14.1 K/uL (3.2-11.0)
[2023-11-17 15:21] LABS: A/G RATIO 1.6 (1.2-2.2); ALANINE AMINOTRANSFERASE,ALT 16 U/L (12-78); ALBUMIN 4.6 g/dL (3.4-5.0); ALKALINE PHOSPHATASE 98 U/L (46-116); ANION GAP 12.5 mmol/L (5.0-14.0); ASPARTATE AMNIOTRANSFERASE,AST 11 U/L (15-37); BILIRUBIN TOTAL 0.4 mg/dL (0.2-1.0); BLOOD UREA NITROGEN,BUN 12 mg/dL (7-18); CALCIUM 9.6 mg/dL (8.5-10.1); CARBON DIOXIDE,CO2 30 mmol/L (21-32); CHLORIDE,CL 94 mmol/L (100-108); CREATININE 0.8 mg/dL (0.6-1.0); EST CRCL DRUG DOSING (CG) 66.56 mL/min; ESTIMATED GFR 89 mL/min (>60); GLUCOSE RANDOM 96 mg/dL (74-106); POTASSIUM,K 3.5 mmol/L (3.6-5.2); PROTEIN TOTAL,TP 7.4 g/dL (6.4-8.2); SODIUM,NA 133 mmol/L (140-148)
[2023-11-17] MEDS: Iopamidol 612 MG/ML 100 ML Bottle IV SCH (15:45)
[2023-11-17] MEDS: Sodium Chloride 0.9% 80 ML IV SCH (15:45)
[2023-11-17] MEDS: Sodium Chloride 0.9% 1,000 ML IV ONE (16:03)
[2023-11-17] MEDS: Acetaminophen 650 MG in Premix Bag 1 BAG IV ONE (16:03)
[2023-11-17 16:29] LABS: APPEARANCE,URINE CLEAR (CLEAR); BILIRUBIN,URINE NEGATIVE (NEGATIVE); COLOR,URINE YELLOW (YELLOW); GLUCOSE,URINE NEGATIVE (NEGATIVE); KETONES,URINE NEGATIVE (NEGATIVE); LEUKOCYTE ESTERASE,URINE NEGATIVE (NEGATIVE); NITRITE,URINE NEGATIVE (NEGATIVE); OCCULT BLOOD,URINE SMALL (NEGATIVE); PROTEIN,URINE NEGATIVE (NEGATIVE); UROBILINOGEN,URINE 0.2 EU/dL (0.2-1.0)
[2023-11-17 16:36] LABS: AMORPHOUS SEDIMENT,URINE NOT SEEN; BACTERIA,URINE NOT SEEN; EPITHELIAL CELLS,URINE RARE; MUCUS,URINE NOT SEEN; RBC,URINE 0-5 (0-5); WBC,URINE 0-5 (0-5)
[2023-11-17] MEDS: fentaNYL 50 MCG/ML SDV IVPUSH ONE (16:41)
[2023-11-17] MEDS: methylPREDNISolone Sodium Succinate 125 MG/2 ML SDV IVPUSH ONE (17:37)
[2023-11-17] MEDS ORDERED: Ondansetron 4 MG Tab.DIS PO PRN (17:48)
[2023-11-17] MEDS ORDERED: Melatonin 3 MG Tab PO PRN (17:48)
[2023-11-17] MEDS ORDERED: Ondansetron 4 MG/2 ML SDV IV PRN (17:48)
[2023-11-17] MEDS ORDERED: HYDROmorphone 1 MG/ML Syringe IVPUSH PRN (17:48)
[2023-11-17] MEDS ORDERED: Naloxone 0.4 MG/ML SDV IVPUSH PRN (17:52)
[2023-11-17] MEDS: Acetaminophen/HYDROcodone 325-5 MG Tab PO PRN (17:56)
[2023-11-17] MEDS: Sodium Chloride 0.9% 1,000 ML IV SCH (17:58)
[2023-11-17] MEDS: Potassium Chloride 10 MEQ in Premix Bag 1 BAG IV SCH (18:02)
[2023-11-17] MEDS: Gabapentin 300 MG Cap PO SCH (20:52)
[2023-11-17] MEDS: QUEtiapine 25 MG Tab PO SCH (20:52)
[2023-11-17] MEDS: fentaNYL 50 MCG/ML SDV IVPUSH PRN (23:47)
[2023-11-18] MEDS: methylPREDNISolone Sodium Succinate 125 MG/2 ML SDV IVPUSH SCH (01:25)
[2023-11-18 05:31] LABS: HEMATOCRIT 32.6 % (34.3-46.0); HEMOGLOBIN 11.4 g/dL (11.2-15.5); MEAN CORPUSCULAR HEMOGLOBIN 31.5 pg (31.6-35.5); MEAN CORPUSCULAR VOLUME 90.1 fL (81.4-99.0); RED BLOOD CELL COUNT 3.62 M/uL (3.77-5.24); WHITE BLOOD CELL COUNT,WBC 6.6 K/uL (3.2-11.0)
[2023-11-18 05:49] LABS: CALCIUM 9.2 mg/dL (8.5-10.1); CREATININE 0.6 mg/dL (0.6-1.0); EST CRCL DRUG DOSING (CG) 89.77 mL/min; POTASSIUM,K 4.4 mmol/L (3.6-5.2)
[2023-11-18 05:53] LABS: ANION GAP 12.4 mmol/L (5.0-14.0)
[2023-11-18] MEDS: Cyclobenzaprine 10 MG Tab PO PRN (07:12)
[2023-11-18] MEDS: Hydrochlorothiazide 12.5 MG Cap PO SCH (08:07)
[2023-11-18] MEDS: Pantoprazole 40 MG Tab.CR PO SCH (08:07)
[2023-11-18] MEDS: Lisinopril 10 MG Tab PO SCH (08:07)
[2023-11-19 05:35] LABS: HEMATOCRIT 28.7 % (34.3-46.0); HEMOGLOBIN 10.1 g/dL (11.2-15.5); MEAN CORPUSCULAR HEMOGLOBIN 31.6 pg (31.6-35.5); MEAN CORPUSCULAR HGB CONC 35.2 g/dL (31.6-35.5); MEAN CORPUSCULAR VOLUME 89.7 fL (81.4-99.0); RED BLOOD CELL COUNT 3.2 M/uL (3.77-5.24)
[2023-11-19 05:51] LABS: A/G RATIO 1.4 (1.2-2.2); ALANINE AMINOTRANSFERASE,ALT 17 U/L (12-78); ALBUMIN 3.4 g/dL (3.4-5.0); ALKALINE PHOSPHATASE 67 U/L (46-116); ANION GAP 13.9 mmol/L (5.0-14.0); ASPARTATE AMNIOTRANSFERASE,AST 12 U/L (15-37); BILIRUBIN TOTAL 0.4 mg/dL (0.2-1.0); BLOOD UREA NITROGEN,BUN 7 mg/dL (7-18); C-REACTIVE PROTEIN < 0.50 mg/dL (<0.50); CALCIUM 8.9 mg/dL (8.5-10.1); CARBON DIOXIDE,CO2 26 mmol/L (21-32); CHLORIDE,CL 98 mmol/L (100-108); CREATININE 0.8 mg/dL (0.6-1.0); EST CRCL DRUG DOSING (CG) 67.33 mL/min; ESTIMATED GFR 89 mL/min (>60); GLUCOSE RANDOM 157 mg/dL (74-106); MAGNESIUM 1.7 mg/dL (1.8-2.4); PHOSPHORUS 3.7 mg/dL (2.5-4.9); POTASSIUM,K 3.9 mmol/L (3.6-5.2); PROTEIN TOTAL,TP 5.8 g/dL (6.4-8.2); SODIUM,NA 134 mmol/L (140-148)
[2023-11-19] MEDS: Acetaminophen 325 MG Tab PO PRN (06:58)
[2023-11-19] MEDS: predniSONE 20 MG Tab PO SCH (07:03)
[2023-11-19 11:08] VITALS: BP 117/78; PULSE 56
== END 2023-11-19 11:25 | disposition home or self-care (01) ==
LOC: JP.ED 13:44 → JP.MS 17:34
PROVIDERS: ADMIT Internal Medicine; ATTEND Internal Medicine
DX: K50.819 Crohn's disease of both small and large intestine with unspecified complications (principal); I10 Essential (primary) hypertension; Z87.891 Personal history of nicotine dependence; Z88.0 Allergy status to penicillin; Z88.1 Allergy status to other antibiotic agents
CPT/HCPCS: 36415; 74177; 80048; 80053; 80069; 80076; 81001; 83735; 85025; 85027; 86140; 99222; 99232; 99239; A9270; J0131; J2405; J2919; J3010; J3480; J3490; J7030; J7512; Q9967

== ENCOUNTER 2024-02-29 06:08 | Day surgery (SDC) | payer OTHER ==
[2024-02-29 06:37] LABS: BASOPHILS PERCENT AUTO 0.2 % (0.1-1.3); EOSINOPHILS ABSOLUTE AUTO 0.09 K/uL (0.00-0.40); EOSINOPHILS PERCENT AUTO 1.5 % (0.0-5.4); HEMATOCRIT 35.9 % (34.3-46.0); IMMATURE GRAN PERCENT AUTO 0.2 % (0.0-0.7); LYMPHOCYTES ABSOLUTE AUTO 2.94 K/uL (0.8-3.3); LYMPHOCYTES PERCENT AUTO 48.4 % (11.4-47.7); MEAN CORPUSCULAR HEMOGLOBIN 31.4 pg (31.6-35.5); MEAN CORPUSCULAR HGB CONC 36.2 g/dL (31.6-35.5); MEAN CORPUSCULAR VOLUME 86.7 fL (81.4-99.0); MONOCYTES ABSOLUTE AUTO 0.71 K/uL (0.20-0.90); MONOCYTES PERCENT AUTO 11.7 % (3.3-12.6); NEUTROPHILS ABSOLUTE AUTO 2.31 K/uL (1.0-7.6); PLATELET COUNT,PLT 328 K/uL (130-375); RED BLOOD CELL COUNT 4.14 M/uL (3.77-5.24); WHITE BLOOD CELL COUNT,WBC 6.1 K/uL (3.2-11.0)
[2024-02-29 06:39] LABS: BASOPHILS ABSOLUTE AUTO 0.01 K/uL (0.00-0.10); IMMATURE GRAN ABSOLUTE AUTO 0.01 K/uL (0.00-0.23)
[2024-02-29] MEDS: Nozin Nasal Sanitizer NASBOTH ONE (06:46)
[2024-02-29] MEDS: Lactated Ringers 1,000 ML IV SCH (06:46)
[2024-02-29 06:54] LABS: CALCIUM 9.1 mg/dL (8.5-10.1); CREATININE 0.8 mg/dL (0.6-1.0); EST CRCL DRUG DOSING (CG) 63.48 mL/min; POTASSIUM,K 3.1 mmol/L (3.6-5.2)
[2024-02-29 06:57] LABS: ANION GAP 12.1 mmol/L (5.0-14.0)
[2024-02-29] MEDS ORDERED: MVI, Adult with Vitamin K 10 ML, Thiamine 200 MG, Zinc/Copper/Manganese/Selenium 1 ML i... IV ONE (07:15)
[2024-02-29] MEDS ORDERED: Propofol 200 MG/20 ML SDV ONE (07:16)
[2024-02-29] MEDS ORDERED: fentaNYL 100 MCG/2 ML SDV ONE ×2 (07:16→08:08)
[2024-02-29] MEDS ORDERED: Dexamethasone 4 MG/ML SDV ONE (07:16)
[2024-02-29] MEDS ORDERED: Midazolam 1 MG/ML 2 ML SDV ONE (07:16)
[2024-02-29] MEDS ORDERED: Ondansetron 4 MG/2 ML SDV ONE (07:16)
[2024-02-29] MEDS: Clindamycin in 0.9 % Sod Chlor 900 MG in Premix Bag 1 BAG IV ONE (07:50)
[2024-02-29] MEDS: Bupivacaine 0.5% 30 ML SDV ONE (08:20)
[2024-02-29 09:58] VITALS: BP 132/82; PULSE 57
== END 2024-02-29 10:00 | disposition home or self-care (01) ==
LOC: JP.SDS 06:08
PROVIDERS: ATTEND Specialist
DX: M22.41 Chondromalacia patellae, right knee (principal); K21.9 Gastro-esophageal reflux disease without esophagitis; Z88.0 Allergy status to penicillin
CPT/HCPCS: 01400; 29879; 36415; 80048; 85025; 93005; 93010; A9270; J0665; J0737; J1100; J2250; J2405; J2704; J3010; J7120

== ENCOUNTER 2024-03-01 12:33 | Emergency (ER) | payer OTHER ==
[2024-03-01 13:14] VITALS: BP 115/87; PULSE 72
[2024-03-01 13:41] LABS: BASOPHILS PERCENT AUTO 0.2 % (0.1-1.3); EOSINOPHILS ABSOLUTE AUTO 0.04 K/uL (0.00-0.40); EOSINOPHILS PERCENT AUTO 0.4 % (0.0-5.4); HEMATOCRIT 35.5 % (34.3-46.0); HEMOGLOBIN 12.9 g/dL (11.2-15.5); IMMATURE GRAN ABSOLUTE AUTO 0.04 K/uL (0.00-0.23); IMMATURE GRAN PERCENT AUTO 0.4 % (0.0-0.7); LYMPHOCYTES ABSOLUTE AUTO 2.59 K/uL (0.8-3.3); LYMPHOCYTES PERCENT AUTO 26.7 % (11.4-47.7); MEAN CORPUSCULAR HEMOGLOBIN 31.7 pg (31.6-35.5); MEAN CORPUSCULAR HGB CONC 36.3 g/dL (31.6-35.5); MEAN CORPUSCULAR VOLUME 87.2 fL (81.4-99.0); MONOCYTES ABSOLUTE AUTO 0.98 K/uL (0.20-0.90); MONOCYTES PERCENT AUTO 10.1 % (3.3-12.6); NEUTROPHILS ABSOLUTE AUTO 6.02 K/uL (1.0-7.6); NEUTROPHILS PERCENT AUTO 62.2 % (40.0-78.1); PLATELET COUNT,PLT 344 K/uL (130-375); RED BLOOD CELL COUNT 4.07 M/uL (3.77-5.24); WHITE BLOOD CELL COUNT,WBC 9.7 K/uL (3.2-11.0)
[2024-03-01 13:42] LABS: BASOPHILS ABSOLUTE AUTO 0.02 K/uL (0.00-0.10)
[2024-03-01 13:50] LABS: BICARBONATE,VENOUS 27.4 mmol/L; CARBOXYHEMOGLOBIN 1.4 % (0.0-1.6); O2 SATURATION VENOUS 31.8; PH,VENOUS 7.421 (7.350-7.450); TOTAL HEMOGLOBIN 13.3 g/dL (12.0-16.0)
[2024-03-01 13:51] LABS: PO2 VENOUS 21.3 mm/Hg
[2024-03-01 14:04] LABS: A/G RATIO 1.8 (1.2-2.2); ALANINE AMINOTRANSFERASE,ALT 18 U/L (12-78); ALBUMIN 4.7 g/dL (3.4-5.0); ALKALINE PHOSPHATASE 89 U/L (46-116); ASPARTATE AMNIOTRANSFERASE,AST 13 U/L (15-37); BILIRUBIN TOTAL 0.6 mg/dL (0.2-1.0); BLOOD UREA NITROGEN,BUN 10 mg/dL (7-18); CALCIUM 9.1 mg/dL (8.5-10.1); CARBON DIOXIDE,CO2 28 mmol/L (21-32); CHLORIDE,CL 93 mmol/L (100-108); CREATININE 0.8 mg/dL (0.6-1.0); ESTIMATED GFR 88 mL/min (>60); GLUCOSE RANDOM 98 mg/dL (74-106); MAGNESIUM 1.8 mg/dL (1.8-2.4); POTASSIUM,K 3.7 mmol/L (3.6-5.2); PROTEIN TOTAL,TP 7.3 g/dL (6.4-8.2); SODIUM,NA 131 mmol/L (140-148)
[2024-03-01 14:05] LABS: ANION GAP 13.7 mmol/L (5.0-14.0)
== END 2024-03-01 14:41 | disposition home or self-care (01) ==
LOC: JP.ED 12:33
DX: R07.89 Other chest pain (principal); I10 Essential (primary) hypertension; Z88.0 Allergy status to penicillin; Z88.5 Allergy status to narcotic agent; Z88.8 Allergy status to other drugs, medicaments and biological substances; Z79.899 Other long term (current) drug therapy; Z90.49 Acquired absence of other specified parts of digestive tract; Z90.710 Acquired absence of both cervix and uterus; Z87.891 Personal history of nicotine dependence
CPT/HCPCS: 36415; 71046; 71046-26; 80053; 82550; 82803; 83735; 85025; 93005; 93010; 99284; 99285

== ENCOUNTER 2024-04-28 12:57 | Emergency (ER) | payer OTHER ==
[2024-04-28 14:37] VITALS: BP 123/73; PULSE 54
[2024-04-28] MEDS ORDERED: Iopamidol 612 MG/ML 100 ML Bottle IV ONE (15:31)
[2024-04-28] MEDS ORDERED: Sodium Chloride 0.9% 100 ML IV ONE (15:31)
[2024-04-28 15:36] LABS: BASOPHILS PERCENT AUTO 0.1 % (0.1-1.3); EOSINOPHILS ABSOLUTE AUTO 0.03 K/uL (0.00-0.40); EOSINOPHILS PERCENT AUTO 0.3 % (0.0-5.4); HEMATOCRIT 31.4 % (34.3-46.0); HEMOGLOBIN 11.1 g/dL (11.2-15.5); IMMATURE GRAN ABSOLUTE AUTO 0.04 K/uL (0.00-0.23); IMMATURE GRAN PERCENT AUTO 0.4 % (0.0-0.7); LYMPHOCYTES ABSOLUTE AUTO 1.91 K/uL (0.8-3.3); LYMPHOCYTES PERCENT AUTO 19.3 % (11.4-47.7); MEAN CORPUSCULAR HEMOGLOBIN 31.6 pg (31.6-35.5); MEAN CORPUSCULAR HGB CONC 35.4 g/dL (31.6-35.5); MEAN CORPUSCULAR VOLUME 89.5 fL (81.4-99.0); MONOCYTES PERCENT AUTO 9.1 % (3.3-12.6); NEUTROPHILS ABSOLUTE AUTO 7.02 K/uL (1.0-7.6); NEUTROPHILS PERCENT AUTO 70.8 % (40.0-78.1); PLATELET COUNT,PLT 276 K/uL (130-375); RED BLOOD CELL COUNT 3.51 M/uL (3.77-5.24); WHITE BLOOD CELL COUNT,WBC 9.9 K/uL (3.2-11.0)
[2024-04-28 15:37] LABS: BASOPHILS ABSOLUTE AUTO 0.01 K/uL (0.00-0.10)
[2024-04-28 16:11] LABS: A/G RATIO 1.6 (1.2-2.2); ALANINE AMINOTRANSFERASE,ALT 30 U/L (12-78); ALBUMIN 4.2 g/dL (3.4-5.0); ALKALINE PHOSPHATASE 82 U/L (46-116); ASPARTATE AMNIOTRANSFERASE,AST 16 U/L (15-37); BILIRUBIN TOTAL 0.6 mg/dL (0.2-1.0); BLOOD UREA NITROGEN,BUN 12 mg/dL (7-18); CALCIUM 9.3 mg/dL (8.5-10.1); CARBON DIOXIDE,CO2 28 mmol/L (21-32); CHLORIDE,CL 94 mmol/L (100-108); CREATININE 0.7 mg/dL (0.6-1.0); ESTIMATED GFR 103 mL/min (>60); GLUCOSE RANDOM 91 mg/dL (74-106); POTASSIUM,K 3.7 mmol/L (3.6-5.2); PROTEIN TOTAL,TP 6.8 g/dL (6.4-8.2); SODIUM,NA 134 mmol/L (140-148)
[2024-04-28 16:24] LABS: ANION GAP 15.7 mmol/L (5.0-14.0); C-REACTIVE PROTEIN < 0.50 mg/dL (<0.50)
[2024-04-28] MEDS: Ondansetron 4 MG/2 ML SDV IVPUSH ONE (16:40)
[2024-04-28] MEDS: fentaNYL 50 MCG/ML SDV IVPUSH ONE (16:40)
[2024-04-28] MEDS: Sodium Chloride 0.9% 10 ML Syringe FLUSH ONE (16:41)
[2024-04-28] MEDS: Sodium Chloride 0.9% 10 ML Syringe FLUSH PRN (16:41)
== END 2024-04-28 17:32 | disposition home or self-care (01) ==
LOC: JP.ED 12:57
DX: R10.30 Lower abdominal pain, unspecified (principal); I10 Essential (primary) hypertension; Z90.710 Acquired absence of both cervix and uterus; Z88.0 Allergy status to penicillin; Z88.1 Allergy status to other antibiotic agents; Z88.5 Allergy status to narcotic agent; Z79.899 Other long term (current) drug therapy
CPT/HCPCS: 36415; 74177; 80053; 83605; 85025; 86140; 96374; 96375; 99284; J2405; J3010

== ENCOUNTER 2024-08-15 07:28 | Day surgery (SDC) | payer OTHER ==
[2024-08-15 07:53] LABS: PLATELET COUNT,PLT 289.0 K/uL (130-375); RED BLOOD CELL COUNT 3.99 M/uL (3.77-5.24); WHITE BLOOD CELL COUNT,WBC 4.3 K/uL (3.2-11.0)
[2024-08-15] MEDS: Nozin Nasal Sanitizer NASBOTH SCH ×2 (07:56→21:36)
[2024-08-15 08:14] LABS: A/G RATIO 1.6 (1.2-2.2); ALANINE AMINOTRANSFERASE,ALT 21 U/L (12-78); ASPARTATE AMNIOTRANSFERASE,AST 18 U/L (15-37); BILIRUBIN TOTAL 0.6 mg/dL (0.2-1.0); BLOOD UREA NITROGEN,BUN 15 mg/dL (7-18); CARBON DIOXIDE,CO2 30 mmol/L (21-32); CHLORIDE,CL 94 mmol/L (100-108); CREATININE 0.7 mg/dL (0.6-1.0); EST CRCL DRUG DOSING (CG) 87.01 mL/min; ESTIMATED GFR 103 mL/min (>60); GLUCOSE RANDOM 87 mg/dL (74-106); POTASSIUM,K 3.2 mmol/L (3.6-5.2); PROTEIN TOTAL,TP 7.2 g/dL (6.4-8.2); SODIUM,NA 132 mmol/L (140-148)
[2024-08-15] MEDS ORDERED: Midazolam 1 MG/ML 2 ML SDV ONE ×2 (08:15→10:38)
[2024-08-15] MEDS ORDERED: Propofol 200 MG/20 ML SDV ONE ×2 (08:15→09:39)
[2024-08-15] MEDS ORDERED: fentaNYL 100 MCG/2 ML SDV ONE (08:15)
[2024-08-15] MEDS: Lactated Ringers 1,000 ML IV SCH (08:22)
[2024-08-15] MEDS ORDERED: Magnesium Hydroxide 400 MG/5 ML Susp 30 ML Cup PO PRN (08:49)
[2024-08-15] MEDS: Clindamycin in 0.9 % Sod Chlor 900 MG in Premix Bag 1 BAG IV ONE (08:59)
[2024-08-15] MEDS ORDERED: Non-Formulary Medication 1 Each (Omeprazole [Omeprazole] 20 MG Cap.Cr) PO SCH (09:00)
[2024-08-15] MEDS ORDERED: Lactated Ringers 1,000 ML ONE (09:17)
[2024-08-15] MEDS ORDERED: EPINEPHrine 1 MG/ML SDV IM PRN (10:00)
[2024-08-15] MEDS ORDERED: ePHEDrine 50 MG/ML SDV ONE (10:00)
[2024-08-15] MEDS: fentaNYL 50 MCG/ML SDV IVPUSH ONE (11:14)
[2024-08-15] MEDS: Ondansetron 4 MG/2 ML SDV IVPUSH PRN (13:08)
[2024-08-15] MEDS: Ketorolac 30 MG/ML SDV IVPUSH PRN (13:35)
[2024-08-15] MEDS: LINACLOTIDE PO SCH (14:10)
[2024-08-15] MEDS: Clindamycin in 0.9 % Sod Chlor 900 MG in Premix Bag 1 BAG IV SCH (18:08)
[2024-08-15] MEDS: Lactobacillus Rhamnosus GG (Probiotic) Cap PO SCH (21:41)
[2024-08-15] MEDS: Aspirin 325 MG Tab.EC PO SCH (21:41)
[2024-08-16 12:34] VITALS: BP 123/83; PULSE 75
[2024-08-16] MEDS: Acetaminophen/HYDROcodone 325-10 MG Tab PO PRN (12:35)
[2024-08-16] MEDS: Ondansetron 4 MG Tab.DIS PO ONE (13:28)
== END 2024-08-16 13:45 | disposition home or self-care (01) ==
LOC: JP.SDS 07:28 → JP.MS 08:49 → JP.SDS 08-16 13:45
PROVIDERS: ATTEND Specialist
DX: M17.11 Unilateral primary osteoarthritis, right knee (principal); I10 Essential (primary) hypertension; Z79.899 Other long term (current) drug therapy
CPT/HCPCS: 20985; 27447; 36415; 73560; 80053; 85027; 93005; 97110; 97116; 97161; 97165; A9270; C1713; C1776; J0665; J0737; J1885; J2250; J2405; J2704; J3010; J7030; J7120; Q0162

== ENCOUNTER 2024-11-15 09:09 | Emergency (ER) | payer OTHER ==
[2024-11-15] MEDS: Ondansetron 4 MG/2 ML SDV IVPUSH ONE (10:14)
[2024-11-15 10:19] LABS: BASOPHILS ABSOLUTE AUTO 0.03 K/uL (0.00-0.10); BASOPHILS PERCENT AUTO 0.2 % (0.1-1.3); EOSINOPHILS PERCENT AUTO 0.1 % (0.0-5.4); IMMATURE GRAN ABSOLUTE AUTO 0.08 K/uL (0.00-0.23); IMMATURE GRAN PERCENT AUTO 0.6 % (0.0-0.7); LYMPHOCYTES ABSOLUTE AUTO 0.72 K/uL (0.8-3.3); LYMPHOCYTES PERCENT AUTO 5.0 % (11.4-47.7); MONOCYTES ABSOLUTE AUTO 0.85 K/uL (0.20-0.90); MONOCYTES PERCENT AUTO 5.9 % (3.3-12.6); NEUTROPHILS ABSOLUTE AUTO 12.62 K/uL (1.0-7.6); NEUTROPHILS PERCENT AUTO 88.2 % (40.0-78.1); PLATELET COUNT,PLT 299 K/uL (130-375); RED BLOOD CELL COUNT 4.36 M/uL (3.77-5.24); WHITE BLOOD CELL COUNT,WBC 14.3 K/uL (3.2-11.0)
[2024-11-15] MEDS: Iopamidol 612 MG/ML 100 ML Bottle IV SCH (10:30)
[2024-11-15 10:32] LABS: EOSINOPHILS ABSOLUTE AUTO 0.02 K/uL (0.00-0.40)
[2024-11-15] MEDS: fentaNYL 100 MCG/2 ML SDV IVPUSH ONE (10:36)
[2024-11-15 10:44] LABS: A/G RATIO 1.6 (1.2-2.2); ALANINE AMINOTRANSFERASE,ALT 25 U/L (12-78); ASPARTATE AMNIOTRANSFERASE,AST 20 U/L (15-37); BILIRUBIN TOTAL 0.3 mg/dL (0.2-1.0); BLOOD UREA NITROGEN,BUN 12 mg/dL (7-18); CARBON DIOXIDE,CO2 29 mmol/L (21-32); CHLORIDE,CL 97 mmol/L (100-108); CREATININE 0.6 mg/dL (0.6-1.0); EST CRCL DRUG DOSING (CG) 89.29 mL/min; ESTIMATED GFR 107 mL/min (>60); GLUCOSE RANDOM 104 mg/dL (74-106); POTASSIUM,K 4.1 mmol/L (3.6-5.2); PROTEIN TOTAL,TP 7.3 g/dL (6.4-8.2); SODIUM,NA 135 mmol/L (140-148)
[2024-11-15] MEDS: fentaNYL 50 MCG/ML SDV IVPUSH ONE (13:47)
[2024-11-15 15:03] VITALS: BP 96/66; PULSE 64
== END 2024-11-15 16:00 | disposition home or self-care (01) ==
LOC: JP.ED 09:09
DX: K50.111 Crohn's disease of large intestine with rectal bleeding (principal); I10 Essential (primary) hypertension; K21.9 Gastro-esophageal reflux disease without esophagitis; Z86.16 Personal history of COVID-19; Z88.0 Allergy status to penicillin; Z88.1 Allergy status to other antibiotic agents; Z88.8 Allergy status to other drugs, medicaments and biological substances; Z88.5 Allergy status to narcotic agent; Z79.899 Other long term (current) drug therapy
CPT/HCPCS: 36415; 74177; 74177-26; 80053; 83690; 85025; 86140; 96374; 96375; 96376; 99283; 99284-25; J2405; J3010; Q9967